=== PATIENT | male | born 1930 | race Caucasian/White ===

== ENCOUNTER 2020-02-04 14:19 | Inpatient (IN) | payer MEDICARE, OTHER ==
[~2020-02-04] VITALS: Ht 172.7 cm; Wt 94.3 kg
--- NOTE | 2020-02-04 14:45 | NUR ---
DR. SKAGGS SEEING PATIENT IN TRIAGE
--- NOTE | 2020-02-04 14:47 | NUR ---
DR. GILES MARTINEZ
[2020-02-04] MEDS ORDERED: SODIUM CHLORIDE 0.9% 1000ML 1,000 ML IV SCH (16:30)
[2020-02-04] MEDS ORDERED: ONDANSETRON HCL INJ 2MG/ML 2ML 2 MG/ML VIAL IV PRN (16:30)
[2020-02-04 16:34] LABS: BASOPHILS % 0.3 % (0.0-1.0); EOSINOPHILS % 0.3 % (0.0-6.0); HEMATOCRIT 40.7 % (38.2-49.6); HEMOGLOBIN 12.6 g/dL (14.0-18.0); LYMPHOCYTES # (AUTO) 0.8 (1.0-3.2); LYMPHOCYTES % 7.8 % (18.0-39.1); MEAN CORPUSCULAR HEMOGLOBIN 28.7 pg (28-32); MEAN CORPUSCULAR VOLUME 92.7 fL (81-99); MONOCYTES # (AUTO) 0.6 (0.2-0.8); MONOCYTES % 6.2 % (4.4-11.3); NEUTROPHILS # (AUTO) 8.7 (2.1-6.9); NEUTROPHILS % 84.9 % (38.7-80.0); PLATELET COUNT 144 x10e3/uL (140-360); RED BLOOD COUNT 4.39 x10e6/uL (4.3-5.7); RED CELL DISTRIBUTION WIDTH 13.6 % (11.7-14.4)
[2020-02-04 16:42] LABS: INR 0.9; PROTHROMBIN TIME 12.7 seconds (11.9-14.5)
[2020-02-04 16:44] LABS: CLARITY,URINE SL CLOUDY (CLEAR); COLOR,URINE YELLOW (YELLOW)
[2020-02-04 16:45] LABS: BILIRUBIN,URINE NEGATIVE (NEGATIVE); KETONES,URINE NEGATIVE (NEGATIVE); LEUKOCYTE ESTERASE ,URINE LARGE (NEGATIVE); NITRITE,URINE POSITIVE (NEGATIVE); PARTIAL THROMBOPLASTIN TIME 22.8 seconds (23.8-35.5); PROTEIN,URINE DIPSTICK TRACE (NEGATIVE); URINE UROBILINOGEN 0.2 mg/dL (0.2 - 1)
[2020-02-04 16:50] LABS: ALBUMIN/GLOBULIN RATIO 0.9 (0.8-2.0); ANION GAP 13.8 mmol/L (8-16); CALCIUM 11.6 mg/dL (8.4-10.2); CREATININE, SERUM 1.2 mg/dL (0.72-1.25); MAGNESIUM 1.9 MG/DL (1.3-2.1); POTASSIUM 4.8 mmol/L (3.5-5.1)
[2020-02-04 16:51] LABS: WBC,URINE (MAN) >50 /HPF (0-5)
[2020-02-04 16:52] LABS: BACTERIA,URINE MANY /HPF; RBC,URINE 21-50 /HPF (0-5)
[2020-02-04 16:53] LABS: EPITHELIAL CELLS,URINE FEW /LPF
[2020-02-04] MEDS: PIPERACILLIN/TAZO 2.25 GM 50 ML IV SCH ×2 (16:56→22:30)
--- NOTE | 2020-02-04 17:05 | Diagnostic Imaging Report ---
EXAMINATION: CHEST SINGLE (PORTABLE) INDICATION: Confusion, urinary tract infection COMPARISON: None FINDINGS: LINES/TUBES:None LUNGS:The lungs are well-inflated. No focal consolidation or pulmonary edema. Bibasilar linear opacities, likely subsegmental atelectasis. PLEURA:No pleural effusion or pneumothorax. MEDIASTINUM:The cardiomediastinal silhouette appears normal in size and shape. Atherosclerotic calcifications of the thoracic aorta. BONES/SOFT TISSUES:No acute osseous injury. Right shoulder arthroplasty hardware. ABDOMEN:No free air under the diaphragm. IMPRESSION: Bibasilar subsegmental atelectasis. No focal pneumonia or pulmonary edema. Signed by: Romulo Sy MD on 02/04/2020 5:02 PM
--- NOTE | 2020-02-04 17:10 | Diagnostic Imaging Report ---
History:Altered mental status Comparison studies: None Technique: Axial images were obtained from the skull base to the vertex. Coronal and sagittal images reconstructed from the axial data. Dose modulation, iterative reconstruction, and/or weight based adjustment of the mA/kV was utilized to reduce the radiation dose to as low as reasonably achievable. Intravenous contrast: None Findings: Scalp/skull: No abnormalities. Extra-axial spaces: No masses. No fluid collections. Brain sulci: Moderately prominent. Ventricles: Moderate compensatory dilatation. No hydrocephalus. Parenchyma: Confluent hypodensities in the supratentorial white matter are small vessel ischemic changes. No masses, hemorrhage, acute or chronic cortical vascular insults. Sellar/suprasellar region: No abnormalities. Craniocervical junction: Patent foramen magnum. No Chiari one malformation. Incidental findings: Atherosclerotic calcifications in the carotid siphons . Bilateral lens implants Impression: No acute abnormalities. Chronic findings: 1. Moderate generalized volume loss. 2. Moderate supratentorial white matter small vessel ischemic changes. Signed by: Dr. Isac Jin M.D. on 02/04/2020 5:06 PM
--- NOTE | 2020-02-04 17:17 | Emergency Department Note ---
History of Present Illnes History of Present Illness Chief Complaint: General Medicine Complaints History of Present Illness This is a 89 year old male SENT IN BY DR. MARTINEZ. C/O OF UTI, WEAKNESS, SOMNOLENCE YESTERDAY AND TODAY. STARTED AUGMENTING YESTERDAY. PATIENT HAD NOT COMPLETED HIS PCN VK WHEN HE GOT URINALYSIS REPORT BACK. ONLY 1 EPISODE OF BURNING WITH URINATION LAST WEEK. METZ CATHETER WITH YELLOW URINE, LOTS OF WHITE SEDIMENT IN TUBE. LAST CHANGED January. DENIES ANY FEVER OR ABDOMINAL OR FLANK PAIN. 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 Any updates have been documented here. Past Medical History Recent Fever: No Clinical Suspicion of Infectio: No New/Unexplained Change in Ment: No Past Medical History: Hypertension Other Medical History: PERIPHERAL NEUROPATHY RIGHT LEG BRACE, EXT. ROTATION OF RIGHT LEG Past Surgical History: Hip Replacement, Knee Replacement, Back Surgery Other Surgery: CATARACT TURP RIGHT SHOULDER Social History Smoking Cessation: Never Smoker Counseling Performed: No Alcohol Use: None Any Illegal Drug Use: No TB Exposure/Symptoms: No Physically hurt or threatened: No Family History Family history of heart diseas: Yes Other Last Tetanus: UTD Any Pre-Existing Lines (PICC,: No Is patient up to date on immun: Yes Last Flu: UTD Last Pneumovax: UTD Review of Systems Review of Systems Constitutional: Reports no symptoms EENTM: Reports no symptoms Cardiovascular: Reports no symptoms Respiratory: Reports no symptoms Gastrointestinal: Reports no symptoms Genitourinary: Reports as per HPI Musculoskeletal: Reports no symptoms Integumentary: Reports no symptoms Neurological: Reports no symptoms Psychological: Reports no symptoms Endocrine: Reports no symptoms Hematological/Lymphatic: Reports no symptoms Physical Exam Related Data Allergies: Coded Allergies: oxycodone (Verified Adverse Reaction, Intermediate, CONFUSION, 02/04/20) Triage Vital Signs Vital Signs Date Time Temp Pulse Resp B/P (MAP) Pulse Ox O2 Delivery O2 Flow Rate FiO2 02/04/20 14:25 98.3 75 18 101/64 97 Vital signs reviewed: Yes Physical Exam CONSTITUTIONAL Constitutional: Present well-developed, Present well-nourished HENT HENT: Present normocephalic, Present atraumatic, Present oropharynx clear/moist, Present nose normal HENT L/R: Present left ext ear normal, Present right ext ear normal EYES Eyes: Reports PERRL, Reports conjunctivae normal NECK Neck: Present ROM normal PULMONARY Pulmonary: Present effort normal, Present breath sounds normal CARDIOVASCULAR Cardiovascular: Present regular rhythm, Present heart sounds normal, Present capillary refill normal, Present normal rate GASTROINTESTINAL Abdominal: Present soft, Present nontender, Present bowel sounds normal GENITOURINARY Genitourinary: Present exam deferred SKIN Skin: Present warm, Present dry MUSCULOSKELETAL Musculoskeletal: Present ROM normal NEUROLOGICAL Neurological: Present alert, Present oriented x 3, Present no gross motor or sensory deficits PSYCHOLOGICAL Psychological: Present mood/affect normal, Present judgement normal Results Laboratory Result Diagram: 02/04/20 1615 02/04/20 1615 Laboratory Laboratory Tests Test 02/04/20 16:45 02/04/20 16:15 White Blood Count 10.28 x10e3/uL (4.8-10.8) Red Blood Count 4.39 x10e6/uL (4.3-5.7) Hemoglobin 12.6 g/dL (14.0-18.0) Hematocrit 40.7 % (38.2-49.6) Mean Corpuscular Volume 92.7 fL (81-99) Mean Corpuscular Hemoglobin 28.7 pg (28-32) Mean Corpuscular Hemoglobin Concent 31.0 g/dL (31-35) Red Cell Distribution Width 13.6 % (11.7-14.4) Platelet Count 144 x10e3/uL (140-360) Neutrophils (%) (Auto) 84.9 % (38.7-80.0) Lymphocytes (%) (Auto) 7.8 % (18.0-39.1) Monocytes (%) (Auto) 6.2 % (4.4-11.3) Eosinophils (%) (Auto) 0.3 % (0.0-6.0) Basophils (%) (Auto) 0.3 % (0.0-1.0) Neutrophils # (Auto) 8.7 (2.1-6.9) Lymphocytes # (Auto) 0.8 (1.0-3.2) Monocytes # (Auto) 0.6 (0.2-0.8) Eosinophils # (Auto) 0.0 (0.0-0.4) Basophils # (Auto) 0.0 (0.0-0.1) Absolute Immature Granulocyte (auto 0.05 x10e3/uL (0-0.1) Prothrombin Time 12.7 seconds (11.9-14.5) Prothromb Time International Ratio 0.90 Activated Partial Thromboplast Time 22.8 seconds (23.8-35.5) Urine Color Yellow (YELLOW) Urine Clarity Sl cloudy (CLEAR) Urine pH 7 (5 - 7) Urine Specific [place] 1.025 (1.010-1.025) Urine Protein Trace (NEGATIVE) Urine Glucose (UA) Negative (NEGATIVE) Urine Ketones Negative (NEGATIVE) Urine Blood Moderate (NEGATIVE) Urine Nitrite Positive (NEGATIVE) Urine Bilirubin Negative (NEGATIVE) Urine Urobilinogen 0.2 mg/dL (0.2 - 1) Urine Leukocyte Esterase Large (NEGATIVE) Urine RBC 21-50 /HPF (0-5) Urine WBC >50 /HPF (0-5) Urine Epithelial Cells Few /LPF (NONE) Urine Bacteria Many /HPF (NONE) Sodium Level 138 mmol/L (136-145) Potassium Level 4.8 mmol/L (3.5-5.1) Chloride Level 102 mmol/L (98-107) Carbon Dioxide Level 27 mmol/L (22-29) Anion Gap 13.8 mmol/L (8-16) Blood Urea Nitrogen 23 mg/dL (7-26) Creatinine 1.20 mg/dL (0.72-1.25) Estimat Glomerular Filtration Rate 57 ML/MIN (60-) BUN/Creatinine Ratio 19 (6-25) Glucose Level 129 mg/dL (74-118) Calcium Level 11.6 mg/dL (8.4-10.2) Magnesium Level 1.9 MG/DL (1.3-2.1) Total Bilirubin 0.5 mg/dL (0.2-1.2) Aspartate Amino Transf (AST/SGOT) 22 IU/L (5-34) Alanine Aminotransferase (ALT/SGPT) 16 IU/L (0-55) Alkaline Phosphatase 48 IU/L (40-150) Creatine Kinase 74 IU/L (30-200) Creatine Kinase MB 2.00 ng/mL (0-5.0) Troponin I 0.008 ng/mL (0-0.300) Total Protein 6.3 g/dL (6.5-8.1) Albumin 3.0 g/dL (3.5-5.0) Globulin 3.3 g/dL (2.3-3.5) Albumin/Globulin Ratio 0.9 (0.8-2.0) Laboratory Tests Test 02/04/20 16:45 02/04/20 16:15 White Blood Count 10.28 x10e3/uL (4.8-10.8) Red Blood Count 4.39 x10e6/uL (4.3-5.7) Hemoglobin 12.6 g/dL (14.0-18.0) Hematocrit 40.7 % (38.2-49.6) Mean Corpuscular Volume 92.7 fL (81-99) Mean Corpuscular Hemoglobin 28.7 pg (28-32) Mean Corpuscular Hemoglobin Concent 31.0 g/dL (31-35) Red Cell Distribution Width 13.6 % (11.7-14.4) Platelet Count 144 x10e3/uL (140-360) Neutrophils (%) (Auto) 84.9 % (38.7-80.0) Lymphocytes (%) (Auto) 7.8 % (18.0-39.1) Monocytes (%) (Auto) 6.2 % (4.4-11.3) Eosinophils (%) (Auto) 0.3 % (0.0-6.0) Basophils (%) (Auto) 0.3 % (0.0-1.0) Neutrophils # (Auto) 8.7 (2.1-6.9) Lymphocytes # (Auto) 0.8 (1.0-3.2) Monocytes # (Auto) 0.6 (0.2-0.8) Eosinophils # (Auto) 0.0 (0.0-0.4) Basophils # (Auto) 0.0 (0.0-0.1) Absolute Immature Granulocyte (auto 0.05 x10e3/uL (0-0.1) Prothrombin Time 12.7 seconds (11.9-14.5) Prothromb Time International Ratio 0.90 Activated Partial Thromboplast Time 22.8 seconds (23.8-35.5) Urine Color Yellow (YELLOW) Urine Clarity Sl cloudy (CLEAR) Urine pH 7 (5 - 7) Urine Specific [place] 1.025 (1.010-1.025) Urine Protein Trace (NEGATIVE) Urine Glucose (UA) Negative (NEGATIVE) Urine Ketones Negative (NEGATIVE) Urine Blood Moderate (NEGATIVE) Urine Nitrite Positive (NEGATIVE) Urine Bilirubin Negative (NEGATIVE) Urine Urobilinogen 0.2 mg/dL (0.2 - 1) Urine Leukocyte Esterase Large (NEGATIVE) Urine RBC 21-50 /HPF (0-5) Urine WBC >50 /HPF (0-5) Urine Epithelial Cells Few /LPF (NONE) Urine Bacteria Many /HPF (NONE) Sodium Level 138 mmol/L (136-145) Potassium Level 4.8 mmol/L (3.5-5.1) Chloride Level 102 mmol/L (98-107) Carbon Dioxide Level 27 mmol/L (22-29) Anion Gap 13.8 mmol/L (8-16) Blood Urea Nitrogen 23 mg/dL (7-26) Creatinine 1.20 mg/dL (0.72-1.25) Estimat Glomerular Filtration Rate 57 ML/MIN (60-) BUN/Creatinine Ratio 19 (6-25) Glucose Level 129 mg/dL (74-118) Calcium Level 11.6 mg/dL (8.4-10.2) Magnesium Level 1.9 MG/DL (1.3-2.1) Total Bilirubin 0.5 mg/dL (0.2-1.2) Aspartate Amino Transf (AST/SGOT) 22 IU/L (5-34) Alanine Aminotransferase (ALT/SGPT) 16 IU/L (0-55) Alkaline Phosphatase 48 IU/L (40-150) Creatine Kinase 74 IU/L (30-200) Creatine Kinase MB 2.00 ng/mL (0-5.0) Troponin I 0.008 ng/mL (0-0.300) Total Protein 6.3 g/dL (6.5-8.1) Albumin 3.0 g/dL (3.5-5.0) Globulin 3.3 g/dL (2.3-3.5) Albumin/Globulin Ratio 0.9 (0.8-2.0) Lab results reviewed: Yes Imaging Imaging results reviewed: Yes Impressions CT BRAIN Impression: No acute abnormalities. Chronic findings: 1. Moderate generalized volume loss. 2. Moderate supratentorial white matter small vessel ischemic changes. Signed by: Dr. Isac Jin M.D. on 02/04/2020 5:06 PM Procedure: [id number] DX/CHEST SINGLE (PORTABLE) Exam Date: 02/04/20 Exam Time: 1630 REPORT STATUS: Signed EXAMINATION: CHEST SINGLE (PORTABLE) INDICATION: Confusion, urinary tract infection COMPARISON: None FINDINGS: LINES/TUBES:None LUNGS:The lungs are well-inflated. No focal consolidation or pulmonary edema. Bibasilar linear opacities, likely subsegmental atelectasis. PLEURA:No pleural effusion or pneumothorax. MEDIASTINUM:The cardiomediastinal silhouette appears normal in size and shape. Atherosclerotic calcifications of the thoracic aorta. BONES/SOFT TISSUES:No acute osseous injury. Right shoulder arthroplasty hardware. ABDOMEN:No free air under the diaphragm. IMPRESSION: Bibasilar subsegmental atelectasis. No focal pneumonia or pulmonary edema. Signed by: Romulo Sy MD on 02/04/2020 5:02 PM Assessment & Plan Medical Decision Making MDM CONFUSION, RECENT ESBL UTI WITH CHRONIC INDWELLING METZ - CHECK CBC, CHEM'S, UA/CX, BLOOD CX'S, CXR, CT BRAIN - EVAL UTI, RENAL INSUFF, LEUKOCYTOSIS, SEPSIS, CEREBRAL BLEED Reassessment Reassessment D/W DR JUAN MORRIS ADMITTED ON ZOSYN 2.25 Q6HR, SPOKE WITH DR HOWE FOR ADMISSION Assessment & Plan Final Impression: (1) UTI (urinary tract infection) (2) Altered mental status Depart Disposition: ADMITTED Last Vital Signs Date Time Temp Pulse Resp B/P (MAP) Pulse Ox O2 Delivery O2 Flow Rate FiO2 02/04/20 17:07 71 18 97 02/04/20 16:30 98.3 110/75 Medications in the ED Piperacillin Sod/ Tazobactam Sod 50 ml @ 50 mls/hr 0400,1000,1600,2200 IV Last administered on 02/04/20at 16:56; Admin Dose 50 MLS/HR; Start 02/04/20 at 16:00; Stop 02/11/20 at 15:59 Ondansetron HCl 4 mg Q4H PRN IV NAUSEA AND VOMITING; Start 02/04/20 at 16:30; Stop 03/05/20 at 16:29 Sodium Chloride 1,000 ml @ 75 mls/hr [id number] IV Last administered on 02/04/20at 16:56; Admin Dose 75 MLS/HR; Start 02/04/20 at 16:30; Stop 02/05/20 at 05:49 GENIE SKAGGS MD Feb 04, 2020 17:17
--- NOTE | 2020-02-04 18:05 | NUR ---
Received patient from ER. Respiration even and unlabored without SOB. Patient orientated to room and call light. Respiration even and unlabored without SOB. Call light in reach.
[2020-02-04 18:17] VITALS: BP 144/67
[2020-02-04 20:45] VITALS: BP 129/68
[2020-02-04 20:51] VITALS: BP 129/68
[2020-02-04] MEDS ORDERED: ACETAMINOPHEN 325 MG TAB PO PRN (21:00)
--- NOTE | 2020-02-04 22:30 | NUR ---
PATIENT IS NOT SURE OF SOME MEDICATIONS HE IS TAKING. HE SAID HIS WILL BE HERE TOMORROW TO BRING THE LIST OF HIS MEDICATIONS.
[2020-02-05] VITALS (9 sets, daily range): BP systolic 107–138; BP diastolic 53–87
[2020-02-05 00:42] LABS: CREATINE KINASE 39 IU/L (30-200)
[2020-02-05] MEDS: PIPERACILLIN/TAZO 2.25 GM 50 ML IV SCH ×4 (04:31→22:15)
[2020-02-05 06:06] LABS: BASOPHILS % 0.3 % (0.0-1.0); EOSINOPHILS # (AUTO) 0.2 (0.0-0.4); EOSINOPHILS % 2.4 % (0.0-6.0); HEMATOCRIT 34.3 % (38.2-49.6); LYMPHOCYTES # (AUTO) 1.3 (1.0-3.2); LYMPHOCYTES % 16.9 % (18.0-39.1); MEAN CORPUSCULAR HEMOGLOBIN 30.2 pg (28-32); MEAN CORPUSCULAR HGB CONC 32.1 g/dL (31-35); MEAN CORPUSCULAR VOLUME 94.2 fL (81-99); MONOCYTES # (AUTO) 0.8 (0.2-0.8); MONOCYTES % 9.8 % (4.4-11.3); NEUTROPHILS # (AUTO) 5.4 (2.1-6.9); NEUTROPHILS % 70.2 % (38.7-80.0); PLATELET COUNT 117 x10e3/uL (140-360); RED BLOOD COUNT 3.64 x10e6/uL (4.3-5.7); RED CELL DISTRIBUTION WIDTH 13.7 % (11.7-14.4)
[2020-02-05 06:19] LABS: ALANINE AMINOTRANSFERASE 11 IU/L (0-55); ALBUMIN 2.6 g/dL (3.5-5.0); ALKALINE PHOSPHATASE 44 IU/L (40-150); BLOOD UREA NITROGEN 17 mg/dL (7-26); BUN/CREATININE RATIO 16 (6-25); CALCIUM 10.5 mg/dL (8.4-10.2); CARBON DIOXIDE 29 mmol/L (22-29); CHLORIDE 106 mmol/L (98-107); CREATININE, SERUM 1.04 mg/dL (0.72-1.25); EST GLOMERULAR FILTRATION RATE > 60 ML/MIN (60-); GLUCOSE 94 mg/dL (74-118); SODIUM 139 mmol/L (136-145)
[2020-02-05] MEDS ORDERED: PROSCAR5 MG PO (06:20)
[2020-02-05] MEDS ORDERED: LASIX20 MG PO (06:20)
[2020-02-05] MEDS ORDERED: CALCIUM CARBON500 MG PO (06:20)
[2020-02-05 06:44] LABS: CREATINE KINASE 15 IU/L (30-200)
[2020-02-05] MEDS ORDERED: HYDROCODONE/APAP 5MG-325MG TAB PO PRN (09:15)
--- NOTE | 2020-02-05 10:06 | History and Physical ---
The patient admitted through the emergency room. PRIMARY CARE PHYSICIAN: Dr. Erik Rogel. LPN PRIVATE DUTY: Dr. Dominick Delaney. CHIEF COMPLAINT: Altered mental status. Garza catheter, complicated urinary tract infection with ESBL. HISTORY OF PRESENT ILLNESS: The patient is an 89-year-old male, sent in by Dr. Delaney, his urologist to the emergency room. Apparently, the patient was having increasing weakness and urinary tract infection associated with some confusion, delirium. The patient also has some lethargy as well. The patient is started on Augmentin, did not improve, a matter of fact it caused some abdominal discomfort. The patient came through the emergency room and is admitted. Zosyn is initiated. The patient is otherwise stable. He had a Garza catheter in place. PAST MEDICAL HISTORY: Peripheral neuropathy, cataract, history of osteoarthritis, urinary retention. PAST SURGICAL HISTORY: Cataract surgery. He had a TURP years ago, right shoulder surgery, right knee replacement, hip replacement, lower back surgery. SOCIAL HISTORY: The patient does not smoke or use alcohol. No regular drug. ALLERGIES: OXYCODONE. HOME MEDICATIONS: List will be available for review. REVIEW OF SYSTEMS: The patient has some confusion, but he is able to answer command, following instruction. PHYSICAL EXAMINATION: HEENT: Normocephalic and atraumatic. Anicteric. NECK: Supple grossly. PULMONARY: Diminished breath sounds without any wheezing or rales. CARDIOVASCULAR: S1, S2. Regular rate and rhythm. ABDOMEN: Soft. There is multiple surgical healing scar. EXTREMITIES: No cyanosis or edema. Garza catheter in place. NEUROLOGIC: The patient moving all extremities. There is no focal deficit. His confusion is mild. Follow commands. LABORATORY DATA: WBC is 10, hemoglobin 13, hematocrit 41, platelets 144. Chemistry; sodium 138, potassium 4.8, chloride 102, bicarb 27, BUN 23, creatinine 1.3, and glucose is 129. Calcium is 11.6. Serologies, coronavirus-19 is still pending. Urinalysis, trace protein, large leukocyte esterase, large wbc, many bacteria. Micro bacteria. Urine cultures still pending. IMAGING TESTS: Chest x-ray and CT scan of the brain, there is no acute finding. He does have some bibasilar atelectasis of the lungs. IMPRESSION: 1. Complicated urinary tract infection associated with prostatitis and indwelling Garza catheter. 2. Confusion secondary to above. 3. Multiple chronic baseline problems. 4. Hypercalcemia, most likely dehydration. PLAN: CT abdomen and pelvis because of the hypercalcemia. He does have history of enlarged prostate and urinary retention. We will check for malignancy. CT scan will be with contrast. Antibiotics Zosyn. Pepcid. Home medication resumed. Repeat the lab work. Check urine culture and blood culture. Consultation with Dr. Dominick Delaney, IV fluids. MD ZHANG Iverson/SHELLYL /[id number]
[2020-02-05] MEDS: SODIUM CHLORIDE 0.9% 1000ML 1,000 ML IV SCH ×2 (10:13→21:07)
[2020-02-05] MEDS ORDERED: SODIUM CHLORIDE 0.9% 50ML 50 ML ONE (11:04)
[2020-02-05] MEDS ORDERED: IOPAMIDOL 370 MG/ML 200 ML INFUS..BTL INJ ONE (11:04)
[2020-02-05] MEDS: FAMOTIDINE 20 MG/2 ML VIAL IV SCH ×2 (12:05→16:42)
--- NOTE | 2020-02-05 13:17 | Diagnostic Imaging Report ---
CT of the abdomen and pelvis, with contrast. History: Complicated UTI. Comparison: None available. Technique: Multidetector CT scanning of the abdomen and pelvis was performed from the level of the lung bases to the inferior pubic rami after intravenous administration of contrast. Coronal and sagittal multiplanar reformations were obtained. RADIATION DOSE: Total DLP: 583.06 mGy*cm Dose modulation, iterative reconstruction, and/or weight based adjustment of the mA/kV was utilized to reduce the radiation dose to as low as reasonably achievable. FINDINGS: Bandlike opacities are identified within the left greater than right lung base suggestive of atelectasis/scarring. The imaged portion of the heart demonstrates no significant abnormalities. The liver is normal in size and attenuation. The gallbladder is surgically absent. There is mild prominence of the central intrahepatic bile ducts and common bile duct measuring up to 10 mm which may be secondary to reservoir phenomenon postcholecystectomy. No radiopaque biliary stone is identified. There are postsurgical changes of the GE junction. There is a moderate size hiatal hernia present. The stomach is otherwise unremarkable. The spleen and right adrenal gland are unremarkable. There is a nonspecific 1.3 cm left adrenal nodule which is not definitively characterized on this single phase examination. There are involutional changes of the pancreas which is otherwise unremarkable. The kidneys are normal in size and location and enhance symmetrically. There is a 6.1 x 6.4 cm cyst identified within the left kidney. There is a 3 mm nonobstructing stone identified within the interpolar region of the right kidney. There is a 4 mm nonobstructive stone versus parenchymal calcification identified within the inferior pole of the left kidney. Additionally, there is a 7 mm stone identified within the right renal pelvis resulting in mild dilatation of the renal pelvis without evidence for true intrarenal hydronephrosis. No left-sided hydronephrosis is present. The left ureter is normal course and caliber. A Garza catheter is identified with retention balloon inflated within the prosthetic urethra. There is moderate distention of the urinary bladder with small amount of air noted within the nondependent portion, likely related to catheterization. The prostate appears prominent. The abdominal aorta is tortuous but normal in caliber with atherosclerotic calcifications within its course and branch vessels. An IVC filter is identified in place. Please note evaluation the bowel is limited without the use of enteric contrast material. The visualized loops of small and large bowel demonstrate no evidence of obstruction or inflammation. Moderate stool burden noted within the sigmoid colon and rectum, recommend correlation for constipation. There is no ascites or intraperitoneal free air. No abnormally enlarged lymph nodes are identified within the abdomen or pelvis. 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 There are also postsurgical changes from right hip arthroplasty with heterotopic calcifications noted adjacent to the right greater trochanter. Vertebral augmentation changes are noted at T10 and T11. There is a severe compression deformity of the T12 vertebral body of unknown chronicity. Multilevel degenerative changes are noted within the thoracolumbar spine. No osseous destructive process is appreciated. IMPRESSION: 1. Malpositioned Garza catheter with retention balloon inflated at the level of the prosthetic urethra. Recommend repositioning/advancing by several several centimeters. 2. 7 mm stone noted within the right renal pelvis resulting in mild dilatation of the right renal pelvis. No intrarenal hydronephrosis is present. Additional subcentimeter bilateral nonobstructing stones identified as detailed above. 3. Left renal cyst. 4. Mild dilatation of the central bile ducts and common bile duct which is likely related to reservoir phenomenon status post cholecystectomy. 5. Moderate sized hiatal hernia. 6. T12 compression deformity of unknown chronicity. Signed by: Dr. Earnest Cooper MD on 02/05/2020 1:13 PM
[2020-02-05 13:25] LABS: CREATINE KINASE MB 1.9 ng/mL (0-5.0)
--- NOTE | 2020-02-05 16:33 | NUR ---
patient up in bed, Alert with no distress, denies any pain this time, at bed side
[2020-02-06] VITALS (10 sets, daily range): BP systolic 123–136; BP diastolic 53–85
[2020-02-06] MEDS: PIPERACILLIN/TAZO 2.25 GM 50 ML IV SCH ×4 (04:47→21:21)
[2020-02-06] MEDS: SODIUM CHLORIDE 0.9% 1000ML 1,000 ML IV SCH ×2 (05:37→21:21)
[2020-02-06 05:38] LABS: BASOPHILS % 0.5 % (0.0-1.0); EOSINOPHILS # (AUTO) 0.2 (0.0-0.4); EOSINOPHILS % 2.3 % (0.0-6.0); HEMATOCRIT 35.9 % (38.2-49.6); HEMOGLOBIN 11.2 g/dL (14.0-18.0); LYMPHOCYTES # (AUTO) 1.5 (1.0-3.2); LYMPHOCYTES % 18.8 % (18.0-39.1); MEAN CORPUSCULAR HEMOGLOBIN 29.2 pg (28-32); MEAN CORPUSCULAR HGB CONC 31.2 g/dL (31-35); MEAN CORPUSCULAR VOLUME 93.7 fL (81-99); MONOCYTES # (AUTO) 0.9 (0.2-0.8); MONOCYTES % 10.7 % (4.4-11.3); NEUTROPHILS # (AUTO) 5.5 (2.1-6.9); NEUTROPHILS % 67.1 % (38.7-80.0); PLATELET COUNT 127 x10e3/uL (140-360); RED BLOOD COUNT 3.83 x10e6/uL (4.3-5.7); RED CELL DISTRIBUTION WIDTH 13.5 % (11.7-14.4)
[2020-02-06 05:59] LABS: ANION GAP 6.9 mmol/L (8-16); BLOOD UREA NITROGEN 14 mg/dL (7-26); BUN/CREATININE RATIO 14 (6-25); CALCIUM 9.7 mg/dL (8.4-10.2); CARBON DIOXIDE 27 mmol/L (22-29); CHLORIDE 109 mmol/L (98-107); CREATININE, SERUM 0.99 mg/dL (0.72-1.25); EST GLOMERULAR FILTRATION RATE > 60 ML/MIN (60-); GLUCOSE 84 mg/dL (74-118); POTASSIUM 3.9 mmol/L (3.5-5.1); SODIUM 139 mmol/L (136-145)
[2020-02-06] MEDS: FAMOTIDINE 20 MG/2 ML VIAL IV SCH ×2 (08:43→16:44)
--- NOTE | 2020-02-06 12:04 | Diagnostic Imaging Report ---
EXAMINATION: HIPS BILAT 3-4VWS (+/- PELVIS), LUMBAR 3 VIEW INDICATION: Fall COMPARISON: None FINDINGS: AP and lateral views of the lumbar spine demonstrate postoperative findings of L1-S1 fusion. Age-indeterminate T12 compression fracture. Status post T10 and T11 vertebral augmentation. Severe multilevel degenerative changes of the visualized spine. IVC filter in place. Atherosclerotic arterial calcic dictations. AP view of the pelvis and AP and frog-leg views of both hips demonstrate postoperative findings of right total hip replacement. Alignment is anatomic. No acute osseous injury. Severe left hip joint degenerative changes with on bone contact and osteophyte formation. Phleboliths in the pelvis. IMPRESSION: Age indeterminate T12 compression fracture. Findings of prior L1-S1 fusion and T10 and T11 vertebral augmentation. Anatomic alignment status post right total hip replacement. Severe [place] left hip degenerative changes. Signed by: Romulo Sy MD on 02/06/2020 12:01 PM
--- NOTE | 2020-02-06 12:04 | Diagnostic Imaging Report ---
EXAMINATION: HIPS BILAT 3-4VWS (+/- PELVIS), LUMBAR 3 VIEW INDICATION: Fall COMPARISON: None FINDINGS: AP and lateral views of the lumbar spine demonstrate postoperative findings of L1-S1 fusion. Age-indeterminate T12 compression fracture. Status post T10 and T11 vertebral augmentation. Severe multilevel degenerative changes of the visualized spine. IVC filter in place. Atherosclerotic arterial calcic dictations. AP view of the pelvis and AP and frog-leg views of both hips demonstrate postoperative findings of right total hip replacement. Alignment is anatomic. No acute osseous injury. Severe left hip joint degenerative changes with on bone contact and osteophyte formation. Phleboliths in the pelvis. IMPRESSION: Age indeterminate T12 compression fracture. Findings of prior L1-S1 fusion and T10 and T11 vertebral augmentation. Anatomic alignment status post right total hip replacement. Severe koi left hip degenerative changes. Signed by: Romulo Sy MD on 02/06/2020 12:01 PM
--- NOTE | 2020-02-06 13:12 | NUR ---
WOUND CARE CONSULT FOR 89 YO MALE HX OF AMS,UTI CIERA 16 ON CONSERVATIVE PUP STATUS AND INTERVENTIONS AND ALTERNATING PRESSURE MATTRESS LABS: WBC-8.20 HGB_11.2 [id number] SKIN ASSESSMENT COMPLETE PATIENT PRESENTS WITH SACRAL STAGE 1 ULCERATION DUSKY RED 2CM X2CM RIGHT GREAT TO STAGE 2 ULCERATION 1CM X2CM X0.1CM AND LEFT GREAT TOE STAGE 2 ULCERATION 0.5CM X0.5CM X0.1CM REPORTED BY PATIENT TO BE CAUSED BY TIGHT BED SHEETS HAVE FAILED TO HEAL X 1 YR RECOMMENDATIONS: NURSING TO CONTINUE TO MAINTAIN ___ PUP STATUS AND INTERVENTIONS AND MATTRESS NURSING TO CONTINUE TO ASSIST PATIENT OUT OF BED FOR MEALS AND MUCH TOLERATED NURSING TO CONTINUE TO ASSIST PATIENT NEEDED WITH MEALS AND NUTRITIONAL SUPPLEMENTS TO ENSURE PROPER REQUIREMENTS FOR HEALING NURSING TO CONTINUE TO OFFLOAD FEET AND HEELS NEEDED WITH PILLOW SUSPENSION WHEN IN BED RECOMMEND CIRCULATION STUDY TO BILATERAL LOWER EXTREMITY R/T NONHEALING BILATERAL GREAT TOE ULCERATIONS NURSING TO KEEP SACRAL AREA CLEAN AND DRY DAILY APPLY VENELEX OINTMENT AND ALLEVYN FOAM DRESSING NURSING TO CLEAN BILATERAL GREAT TOE ULCERATIONS WITH NORMAL SALINE DAILY AND APPLY VENELEX OINTMENT AND LEAVE OPEN TO AIR
[2020-02-06] MEDS ORDERED: LOSARTAN POTASS25 MG PO (14:45)
[2020-02-06] MEDS ORDERED: GABAPENTIN300 MG PO (14:45)
[2020-02-06] MEDS ORDERED: MYRBETRIQ50 MG PO (14:45)
[2020-02-06] MEDS ORDERED: FLOMAX0.4 MG PO (14:45)
[2020-02-06] MEDS ORDERED: PREDNISONE10 MG PO (14:45)
[2020-02-06] MEDS ORDERED: FUROSEMIDE40 MG PO (14:45)
[2020-02-06] MEDS ORDERED: PROSCAR5 MG PO (14:45)
[2020-02-06] MEDS ORDERED: AMLODIPINE BESYL5 MG PO (14:45)
--- NOTE | 2020-02-06 18:22 | NUR ---
patient resting in bed, not in any distress, call light in reach, bed alarm on, was there earlier, as per Dr Delaney keep him NPO after midnight
[2020-02-07] VITALS (8 sets, daily range): BP systolic 132–167; BP diastolic 66–84
[2020-02-07] MEDS: SODIUM CHLORIDE 0.9% 1000ML 1,000 ML IV SCH ×3 (01:15→21:43)
[2020-02-07] MEDS: PIPERACILLIN/TAZO 2.25 GM 50 ML IV SCH ×4 (04:50→21:43)
[2020-02-07 05:49] LABS: BASOPHILS % 0.5 % (0.0-1.0); EOSINOPHILS # (AUTO) 0.2 (0.0-0.4); EOSINOPHILS % 3.6 % (0.0-6.0); HEMATOCRIT 37.1 % (38.2-49.6); HEMOGLOBIN 11.8 g/dL (14.0-18.0); LYMPHOCYTES # (AUTO) 1.7 (1.0-3.2); LYMPHOCYTES % 24.9 % (18.0-39.1); MEAN CORPUSCULAR HEMOGLOBIN 29.6 pg (28-32); MEAN CORPUSCULAR HGB CONC 31.8 g/dL (31-35); MEAN CORPUSCULAR VOLUME 93.2 fL (81-99); MONOCYTES # (AUTO) 0.7 (0.2-0.8); MONOCYTES % 11.1 % (4.4-11.3); NEUTROPHILS % 59.3 % (38.7-80.0); PLATELET COUNT 125 x10e3/uL (140-360); RED BLOOD COUNT 3.98 x10e6/uL (4.3-5.7); RED CELL DISTRIBUTION WIDTH 13.8 % (11.7-14.4)
[2020-02-07 06:10] LABS: ANION GAP 8.9 mmol/L (8-16); BLOOD UREA NITROGEN 12 mg/dL (7-26); BUN/CREATININE RATIO 13 (6-25); CALCIUM 9.6 mg/dL (8.4-10.2); CARBON DIOXIDE 24 mmol/L (22-29); CHLORIDE 111 mmol/L (98-107); CREATININE, SERUM 0.93 mg/dL (0.72-1.25); EST GLOMERULAR FILTRATION RATE > 60 ML/MIN (60-); GLUCOSE 95 mg/dL (74-118); POTASSIUM 3.9 mmol/L (3.5-5.1); SODIUM 140 mmol/L (136-145)
--- NOTE | 2020-02-07 07:00 | NUR ---
RCD PT AT BED PT IS ALERT AND ORIENTED PT RESTING ON BED NO SIGNS OF ANY DISTRESS NOTED IV PATENT BED LOW AND LOCKED CALL LIGHT IN REACH
[2020-02-07] MEDS: BALSAM PERU/CASTOR OIL 60 GM OINT...G. TP SCH (09:00)
[2020-02-07] MEDS: FAMOTIDINE 20 MG/2 ML VIAL IV SCH ×2 (09:00→16:14)
--- NOTE | 2020-02-07 12:48 | NUR ---
DR MARTINEZ SAID HE IS NOT DOING ANY PROCEDURE ON TODAY ,GIVE THE LUNCH
--- NOTE | 2020-02-07 14:30 | NUR ---
AC TO TELEY TECH PTS HR AND RHYTHM CHANGED ,CHECKED THE PT VITALS AND STARTED O2 BECAUSE O2 STATUS 90%
--- NOTE | 2020-02-07 14:40 | NUR ---
AGAIN CAPRICE MCGILL CALLED AND SHE SAID ORDER EKG ,THEY CAME AND TOOK THE EKG
--- NOTE | 2020-02-07 14:50 | NUR ---
NOTIFIED THE EKG REPORT TO DR HOWE FIRST DEGREE BLOCK WITH BB AND SECOND EKG SHOWS A FIB HE SAID PUT THE EKG ON THE CHART ,NO NEW ORDERS
--- NOTE | 2020-02-07 15:00 | NUR ---
NOTIFIED THE CONDITION TO THE SENIOR PROJECT ARCHITECT
--- NOTE | 2020-02-07 17:03 | NUR ---
Received call from pt's Tona Cisneros. States to send referral for inpatient rehab to [facility] rehab. Copy of choice letter placed in front of chart. Referral faxed to [facility] at [phone].
--- NOTE | 2020-02-07 18:46 | NUR ---
PT RESTING ON BED BED SIDE REPORT GIVEN TO ONCOMING NURSE
[2020-02-08] VITALS (9 sets, daily range): BP systolic 122–158; BP diastolic 72–89
[2020-02-08] MEDS: PIPERACILLIN/TAZO 2.25 GM 50 ML IV SCH ×2 (04:17→10:00)
[2020-02-08 06:46] LABS: BASOPHILS % 0.5 % (0.0-1.0); EOSINOPHILS % 1.4 % (0.0-6.0); HEMATOCRIT 37.8 % (38.2-49.6); HEMOGLOBIN 11.6 g/dL (14.0-18.0); LYMPHOCYTES # (AUTO) 0.9 (1.0-3.2); LYMPHOCYTES % 41.6 % (18.0-39.1); MEAN CORPUSCULAR HGB CONC 30.7 g/dL (31-35); MEAN CORPUSCULAR VOLUME 91.3 fL (81-99); MONOCYTES # (AUTO) 0.1 (0.2-0.8); MONOCYTES % 4.1 % (4.4-11.3); NEUTROPHILS # (AUTO) 1.1 (2.1-6.9); PLATELET COUNT 112 x10e3/uL (140-360); RED BLOOD COUNT 4.14 x10e6/uL (4.3-5.7); RED CELL DISTRIBUTION WIDTH 13.7 % (11.7-14.4)
[2020-02-08 07:03] LABS: MAGNESIUM 1.7 MG/DL (1.3-2.1); PHOSPHORUS 1.8 MG/DL (2.3-4.7)
[2020-02-08 07:10] LABS: ANION GAP 7.8 mmol/L (8-16); BLOOD UREA NITROGEN 11 mg/dL (7-26); BUN/CREATININE RATIO 13 (6-25); CALCIUM 9.6 mg/dL (8.4-10.2); CARBON DIOXIDE 23 mmol/L (22-29); CHLORIDE 113 mmol/L (98-107); CREATININE, SERUM 0.88 mg/dL (0.72-1.25); EST GLOMERULAR FILTRATION RATE > 60 ML/MIN (60-); GLUCOSE 99 mg/dL (74-118); POTASSIUM 3.8 mmol/L (3.5-5.1); SODIUM 140 mmol/L (136-145)
[2020-02-08] MEDS: SODIUM CHLORIDE 0.9% 1000ML 1,000 ML IV SCH ×2 (07:15→16:19)
[2020-02-08 07:24] LABS: THYROID STIMULATING HORMONE 2.416 uIU/mL (0.350-4.940)
[2020-02-08] MEDS: FAMOTIDINE 20 MG/2 ML VIAL IV SCH ×2 (07:58→16:19)
[2020-02-08] MEDS: BALSAM PERU/CASTOR OIL 60 GM OINT...G. TP SCH (07:58)
--- NOTE | 2020-02-08 08:45 | NUR ---
NOTIFIED MADHURI ALVARADO, LIAISON WITH [facility] CELL [phone] THAT HIS CORONAVIRUS TEST NOT DETECTED
--- NOTE | 2020-02-08 09:58 | NUR ---
MADHURI INFORMED THAT PT HAS BEEN APPROVED FOR ADMIT TODAY. NOTIFIED DR. HOWE, WHO IS NOW ROUNDING. HE WILL ASSESS PT AND DETERMINE IF CAN TRANSFER TODAY. NOTIFIED MADHURI.
[2020-02-08] MEDS ORDERED: MAGNESIUM SULFATE 2GM/50ML IV ONE (11:15)
--- NOTE | 2020-02-08 11:59 | NUR ---
PT NOT TRANSFERRED TO [facility] TODAY. DR. HOWE TREATING MG AND REPEATING LABS IN THE MORNING. NOTIFIED MADHURI Serna/ [facility]
[2020-02-08] MEDS ORDERED: POTASSIUM PHOSPHATE 20 MM in SODIUM CHLORIDE 0.9% 250ML 250 ML IV ONE (12:00)
[2020-02-08] MEDS ORDERED: MAGNESIUM SULFATE 2GM/50ML 50 ML IV ONE (12:00)
[2020-02-08] MEDS: CEFEPIME 1GM/NS 0.9% 50 ML 50 ML IV SCH ×2 (12:00→22:59)
--- NOTE | 2020-02-08 12:58 | NUR ---
ELICEO, PT DAUGHTER, CALLED TO INQUIRE IF PT WAS GOING TO [facility] OR NOT. EXPLAINED HE WILL NOT GO TODAY, AND THAT HE IS HAVING LAB TESTS TOMORROW. NOTIFIED HER CARDIOLOGY ALSO WAS CONSULTED. SHE STATED HE IS SUPPOSE TO HAVE UROLOGICAL SURGERY, BUT IT WAS POSTPONED DUE TO HIS UTI.
--- NOTE | 2020-02-08 13:43 | NUR ---
Juanita, pt daughter called, requesting Return Agent please go see her father. I explained they are not here on weekend, but that I would leave Return Agent a message. She is also requesting the Eucharist if possible, as pt is Christianity. Voice mail left for Chaplain Sanchez, and also sent him an email.
[2020-02-08] MEDS: LACTOBACILLUS ACIDOPHILUS CAPSULE PO SCH ×2 (15:00→19:56)
--- NOTE | 2020-02-08 18:09 | NUR ---
The test engineer Daniel made referral to see the patient , visited the patient at 5 PM , Pt and expressed concern for his long hospitalization and delay in surgery process . Redrawer validated their feeling and provided pastoral counseling on virtue of patience and time , test engineer offered pastoral comfort , encouragement and prayer and daily devotion to read . Pt and expressed more peace and appreciated test engineer time and ministry chaplain Aldair
--- NOTE | 2020-02-08 18:38 | NUR ---
PT RESTING ON BED BED SIDE REPORT GIVEN TO ONCOMING NURSE
--- NOTE | 2020-02-08 20:31 | Consultation ---
DATE OF CONSULTATION: 02/08/2020 Cardiology Consultation Thank you so much for asking me to see this nice man in consultation. HISTORY OF PRESENT ILLNESS: Mr. Cisneros is a pleasant 89-year-old man, who was admitted on the with confusion and urinary tract infection. PAST MEDICAL HISTORY: Significant for hypertension and previous urinary problems including prostatectomy. He denies any history of any cardiac problem. He has also had previous cataract surgery, back surgery. PERSONAL AND SOCIAL HISTORY: He does not smoke or drink. All members of his family graduate in the [employer]. REVIEW OF SYSTEMS: CARDIAC: He denies any chest pain, palpitations, or syncope. PHYSICAL EXAMINATION: GENERAL: At this time, shows a pleasant elderly white man, who is alert and responsive, conversant. VITAL SIGNS: Blood pressure is 122/72, pulse is 70 and regular. HEAD, EYES, EARS, NOSE, AND THROAT: Unremarkable. NECK: No jugular venous distention. No bruits. THORAX: Heart sounds S1 and S2 are equal. No murmurs. LUNGS: Clear. ABDOMEN: Protuberant. EXTREMITIES: No cyanosis, clubbing, or edema. He has Garza catheter in place. He has a CPAP machine at bedside. IMAGING: EKG shows sinus rhythm with first-degree AV block and a right bundle branch block. LABORATORY STUDIES: Show urinary tract infection. ASSESSMENT: 1. Urinary tract infection. 2. Right bundle branch block. 3. First-degree AV block. 4. Sleep apnea. PLAN: We will obtain echocardiogram and carotid Doppler scan to help ascertain the preoperative risk for planned prostate surgery. We will follow closely with you. Thank you for asking me to see him in consultation. MD GINNA Messina/KIT /[id number] cc: MD Dominick Iverson MD
--- NOTE | 2020-02-08 21:00 | NUR ---
PATIENT REFUSE CPAP MACHINE AT BEDSIDE, STATING "WHAT TIME IS IT" ADVISED HIM THAT IT WAS 9PM, HE STATED " NAW WE CAN LEAVE THAT OFF FOR NOW", EDUCATED PT ABOUT THE ORDER, ASSISTED HIM BY PLACING HIS HEARING AID IN CHARGING STATION, GIVEN COMFORT CARE CALL LIGHT WITHIN REACH
[2020-02-09] VITALS (12 sets, daily range): BP systolic 115–157; BP diastolic 57–88
--- NOTE | 2020-02-09 00:40 | NUR ---
2ND ATTEMPT TO PLACE CPAP ON PATIENT ORDERED, REFUSED
[2020-02-09] MEDS: SODIUM CHLORIDE 0.9% 1000ML 1,000 ML IV SCH ×3 (01:14→23:25)
--- NOTE | 2020-02-09 02:25 | NUR ---
PT ALLOWED CPAP PLACEMENT
[2020-02-09 06:00] LABS: BASOPHILS % 0.4 % (0.0-1.0); EOSINOPHILS # (AUTO) 0.1 (0.0-0.4); EOSINOPHILS % 2.4 % (0.0-6.0); HEMATOCRIT 38.8 % (38.2-49.6); LYMPHOCYTES # (AUTO) 0.9 (1.0-3.2); LYMPHOCYTES % 15.6 % (18.0-39.1); MEAN CORPUSCULAR HEMOGLOBIN 28.7 pg (28-32); MEAN CORPUSCULAR HGB CONC 30.9 g/dL (31-35); MEAN CORPUSCULAR VOLUME 92.8 fL (81-99); MONOCYTES # (AUTO) 0.6 (0.2-0.8); MONOCYTES % 10.8 % (4.4-11.3); NEUTROPHILS # (AUTO) 3.9 (2.1-6.9); NEUTROPHILS % 70.3 % (38.7-80.0); PLATELET COUNT 139 x10e3/uL (140-360); RED BLOOD COUNT 4.18 x10e6/uL (4.3-5.7); RED CELL DISTRIBUTION WIDTH 13.8 % (11.7-14.4)
[2020-02-09 06:33] LABS: MAGNESIUM 1.9 MG/DL (1.3-2.1)
--- NOTE | 2020-02-09 07:19 | NUR ---
BSSR GIVEN TO SID HUTTON, PATIENT AWAKE ALERT, NO DISTRESS, REMAIN ON CONTACT ISOLATION ESBL URINE
[2020-02-09] MEDS: BALSAM PERU/CASTOR OIL 60 GM OINT...G. TP SCH (07:58)
[2020-02-09] MEDS: FAMOTIDINE 20 MG/2 ML VIAL IV SCH ×2 (07:58→17:11)
[2020-02-09] MEDS: LACTOBACILLUS ACIDOPHILUS CAPSULE PO SCH ×3 (07:58→21:04)
--- NOTE | 2020-02-09 08:49 | NUR ---
Oanh, liaison with [facility] stated she spoke with Dr. Vasquez and he plans possible transfer on Monday pending Dr. Delaney clearance. Faxed clinical updates.
[2020-02-09] MEDS: CEFEPIME 1GM/NS 0.9% 50 ML 50 ML IV SCH (11:09)
[2020-02-09] MEDS ORDERED: POTASSIUM PHOSPHATE 20 MM in SODIUM CHLORIDE 0.9% 250ML 250 ML IV SCH (11:45)
[2020-02-09] MEDS ORDERED: POTASSIUM PHOSPHATE 20 MM in SODIUM CHLORIDE 0.9% 250ML 250 ML IV ONE (11:45)
--- NOTE | 2020-02-09 19:16 | NUR ---
BEDSIDE SHIFT REPORT RECEIVED FROM DAY RN. PT IS ALERT AND ORIENTED X3. RESPIRATIONS ARE EVEN AND UNLABORED. TELE ON. PT DENIES PAIN. METZ LAST CHANGED 01/28/20 - FOR RETENTION ASSISTED AT HOME. METZ DRAINING CLEAR YELLOW URINE. 22G LFA PIV INTACT WITH HEALTHY SITE. NO EDEMA NOTED. CALL LIGHT WITHIN REACH. BED LOCKED AND IN LOW POSITION.
[2020-02-10] VITALS (7 sets, daily range): BP systolic 115–154; BP diastolic 64–81
[2020-02-10] MEDS: CEFEPIME 1GM/NS 0.9% 50 ML 50 ML IV SCH ×2 (00:26→11:00)
[2020-02-10] MEDS: SODIUM CHLORIDE 0.9% 1000ML 1,000 ML IV SCH (08:45)
[2020-02-10] MEDS: LACTOBACILLUS ACIDOPHILUS CAPSULE PO SCH ×3 (08:56→20:45)
[2020-02-10] MEDS: FAMOTIDINE 20 MG/2 ML VIAL IV SCH ×2 (08:57→17:00)
[2020-02-10] MEDS: BALSAM PERU/CASTOR OIL 60 GM OINT...G. TP SCH (09:01)
[2020-02-10] MEDS ORDERED: HYDRALAZINE HCL 25 MG TAB PO PRN (09:15)
[2020-02-10] MEDS: PREDNISONE 10 MG TAB PO SCH (10:05)
[2020-02-10] MEDS: TAMSULOSIN HCL 0.4 MG CAP PO SCH (10:05)
[2020-02-10] MEDS: AMLODIPINE BESYLATE 5 MG TAB PO SCH (10:05)
[2020-02-10] MEDS: LOSARTAN POTASSIUM 25 MG TAB PO SCH (10:05)
[2020-02-10] MEDS: FINASTERIDE 5 MG TAB PO SCH (10:06)
--- NOTE | 2020-02-10 12:30 | NUR ---
DR. HARPER AT BEDSIDE. OKAY TO D/C PT PER DR. HARPER. PAGED DR. HOWE AND INFORMED THE SAME.
--- NOTE | 2020-02-10 13:53 | NUR ---
Spoke with Dr. Vasquez regarding DC plan to inpatient rehab. He state pt with complicated/recurrent UTI. He spoke with Dr. Delaney this morning and Dr. Delaney plans for TURP on Monday.
--- NOTE | 2020-02-10 16:15 | NUR ---
Nutrition Screen Note RD Recommendation for Physician: -Recommend regular diet Plan of Care: RD following, monitoring for tolerance and adequacy Nutrition reason for involvement: Length of stay Primary Diagnose(s): AMS, UTI PMH: Peripheral neuropathy, cataract, osteoarthritis, urinary retention. Ht: 68 in Wt:208 lb BMI: 31.6 kg/m2 IBW:[address] Assessment: (02/10/20) Chart reviewed. Labs and meds reviewed. Pt is an 89 year old male admitted with AMS and UTI. It is recorded pt is consuming 50-100% of meals. Recommend modifying diet to regular diet. Will continue to monitor Current Diet: 1600 ADA Malnutrition Evaluation (02/10/20) The patient does not meet criteria for a specified degree of malnutrition at this time. Will re-evaluate at follow-up as appropriate. Diet Education Needs Assessment: Diet education not indicated. Nutrition Care Level: low Signed: Kady Barney RD, LD
--- NOTE | 2020-02-10 19:15 | NUR ---
BEDSIDE SHIFT REPORT GIVEN TO THE WATER MANGLE TENDER RN. PT DENIED FURTHER NEEDS.
[2020-02-10] MEDS: GABAPENTIN 300 MG CAP PO SCH (20:45)
[2020-02-11] VITALS (8 sets, daily range): BP systolic 113–144; BP diastolic 68–78
[2020-02-11 09:46] LABS: BASOPHILS % 0.3 % (0.0-1.0); EOSINOPHILS # (AUTO) 0.1 (0.0-0.4); EOSINOPHILS % 2.2 % (0.0-6.0); HEMATOCRIT 38.6 % (38.2-49.6); HEMOGLOBIN 11.9 g/dL (14.0-18.0); LYMPHOCYTES # (AUTO) 1.4 (1.0-3.2); LYMPHOCYTES % 21.9 % (18.0-39.1); MEAN CORPUSCULAR HGB CONC 30.8 g/dL (31-35); MEAN CORPUSCULAR VOLUME 90.8 fL (81-99); MONOCYTES # (AUTO) 0.7 (0.2-0.8); MONOCYTES % 11.7 % (4.4-11.3); NEUTROPHILS % 63.3 % (38.7-80.0); PLATELET COUNT 129 x10e3/uL (140-360); RED BLOOD COUNT 4.25 x10e6/uL (4.3-5.7); RED CELL DISTRIBUTION WIDTH 13.7 % (11.7-14.4)
[2020-02-11 09:47] LABS: ANION GAP 7.6 mmol/L (8-16); BLOOD UREA NITROGEN 13 mg/dL (7-26); BUN/CREATININE RATIO 15 (6-25); CALCIUM 10.5 mg/dL (8.4-10.2); CARBON DIOXIDE 27 mmol/L (22-29); CHLORIDE 106 mmol/L (98-107); CREATININE, SERUM 0.84 mg/dL (0.72-1.25); EST GLOMERULAR FILTRATION RATE > 60 ML/MIN (60-); GLUCOSE 113 mg/dL (74-118); POTASSIUM 3.6 mmol/L (3.5-5.1); SODIUM 137 mmol/L (136-145)
[2020-02-11] MEDS: AMLODIPINE BESYLATE 5 MG TAB PO SCH (10:40)
[2020-02-11] MEDS: FAMOTIDINE 20 MG/2 ML VIAL IV SCH ×2 (10:40→16:36)
[2020-02-11] MEDS: LOSARTAN POTASSIUM 25 MG TAB PO SCH (10:40)
[2020-02-11] MEDS: PREDNISONE 10 MG TAB PO SCH (10:40)
[2020-02-11] MEDS: TAMSULOSIN HCL 0.4 MG CAP PO SCH (10:40)
[2020-02-11] MEDS: FINASTERIDE 5 MG TAB PO SCH (10:41)
[2020-02-11] MEDS: BALSAM PERU/CASTOR OIL 60 GM OINT...G. TP SCH (10:41)
[2020-02-11] MEDS: LACTOBACILLUS ACIDOPHILUS CAPSULE PO SCH ×3 (10:41→21:42)
[2020-02-11] MEDS: CEFEPIME 1GM/NS 0.9% 50 ML 50 ML IV SCH ×2 (12:50)
--- NOTE | 2020-02-11 19:50 | NUR ---
report given to oncoming nurse, walking rounds complete.
--- NOTE | 2020-02-11 19:55 | NUR ---
Patient received sitting up in bed. AAO x 4. Patient had no complaints of pain. Respirations even and non-labored. Garza catheter draining clear pale yellow urine. Fall precautions implemented. Patient instructed to call for assistance when needed. Call light within reach.
[2020-02-11] MEDS: GABAPENTIN 300 MG CAP PO SCH (21:42)
[2020-02-12] VITALS (8 sets, daily range): BP systolic 109–148; BP diastolic 67–79
--- NOTE | 2020-02-12 01:30 | NUR ---
Patient informed about upcoming surgical procedure and NPO status after midnight. Patient verbalized understanding and signed "Disclosure and Consent" form.
[2020-02-12] MEDS: CEFEPIME 1GM/NS 0.9% 50 ML 50 ML IV SCH ×3 (01:50→23:37)
--- NOTE | 2020-02-12 05:36 | NUR ---
Airam-care performed. Wound dressing performed per MD's orders. Patient tolerated well.
--- NOTE | 2020-02-12 07:00 | NUR ---
Walking rounds done. Patient resting comfortably. BSSR given to oncoming nurse regarding patient's status.
--- NOTE | 2020-02-12 08:42 | NUR ---
Patient is transported for procedure at this time.
[2020-02-12] MEDS: BALSAM PERU/CASTOR OIL 60 GM OINT...G. TP SCH (09:00)
[2020-02-12] MEDS: LOSARTAN POTASSIUM 25 MG TAB PO SCH (09:00)
[2020-02-12] MEDS: LACTOBACILLUS ACIDOPHILUS CAPSULE PO SCH ×3 (09:00→21:20)
[2020-02-12] MEDS: FINASTERIDE 5 MG TAB PO SCH (09:00)
[2020-02-12] MEDS: FAMOTIDINE 20 MG/2 ML VIAL IV SCH ×2 (09:00→17:00)
[2020-02-12] MEDS: TAMSULOSIN HCL 0.4 MG CAP PO SCH (09:00)
[2020-02-12] MEDS: PREDNISONE 10 MG TAB PO SCH (09:00)
[2020-02-12] MEDS: AMLODIPINE BESYLATE 5 MG TAB PO SCH (09:00)
[2020-02-12] MEDS ORDERED: IOPAMIDOL 300MG/ML 50ML INFUS..BTL IV ONE (09:04)
[2020-02-12] MEDS ORDERED: B&O 60MG R/S 60 MG SUPP PR ONE (09:04)
[2020-02-12] MEDS ORDERED: B&O 60MG R/S 60 MG SUPP PR PRN (12:15)
--- NOTE | 2020-02-12 12:45 | NUR ---
Patient is back to the room from procedure. Urinary catheter intact, CBI, Reddish-colored urine to bag. Denies pain at this time. Respiration even and unlabored without SOB. Call light in reach.
--- NOTE | 2020-02-12 13:48 | NUR ---
[facility] [phone].
--- NOTE | 2020-02-12 18:50 | NUR ---
CBI output is 16,150 ml
[2020-02-12] MEDS ORDERED: SEVOFLURANE INHAL SOLN 250 ML PEN BTL ONE (20:05)
[2020-02-12] MEDS ORDERED: LIDOCAINE HCL 2% LOCAL INJ 5 ML SDV VIAL INJ ONE (20:05)
[2020-02-12] MEDS ORDERED: GLYCOPYRROLATE INJ 0.2 MG/ML VIAL ONE (20:05)
[2020-02-12] MEDS ORDERED: PROPOFOL IV EMULSION 10 MG/ML 20 ML VIAL ONE (20:05)
[2020-02-12] MEDS ORDERED: ONDANSETRON HCL INJ 2MG/ML 2ML 2 MG/ML VIAL ONE (20:05)
[2020-02-12] MEDS: GABAPENTIN 300 MG CAP PO SCH (21:20)
[2020-02-13] VITALS: BP 126/71
[2020-02-13 04:00] VITALS: BP 97/65
[2020-02-13 05:44] LABS: BASOPHILS % 0.5 % (0.0-1.0); EOSINOPHILS # (AUTO) 0.2 (0.0-0.4); EOSINOPHILS % 2.1 % (0.0-6.0); HEMATOCRIT 39.7 % (38.2-49.6); HEMOGLOBIN 12.4 g/dL (14.0-18.0); LYMPHOCYTES # (AUTO) 1.8 (1.0-3.2); LYMPHOCYTES % 22.6 % (18.0-39.1); MEAN CORPUSCULAR HGB CONC 31.2 g/dL (31-35); MEAN CORPUSCULAR VOLUME 92.8 fL (81-99); MONOCYTES # (AUTO) 0.9 (0.2-0.8); MONOCYTES % 11.2 % (4.4-11.3); PLATELET COUNT 146 x10e3/uL (140-360); RED BLOOD COUNT 4.28 x10e6/uL (4.3-5.7); RED CELL DISTRIBUTION WIDTH 13.6 % (11.7-14.4)
[2020-02-13 06:24] LABS: ANION GAP 10.8 mmol/L (8-16); BLOOD UREA NITROGEN 17 mg/dL (7-26); BUN/CREATININE RATIO 18 (6-25); CALCIUM 10.2 mg/dL (8.4-10.2); CARBON DIOXIDE 26 mmol/L (22-29); CHLORIDE 109 mmol/L (98-107); CREATININE, SERUM 0.93 mg/dL (0.72-1.25); EST GLOMERULAR FILTRATION RATE > 60 ML/MIN (60-); GLUCOSE 83 mg/dL (74-118); POTASSIUM 4.8 mmol/L (3.5-5.1); SODIUM 141 mmol/L (136-145)
[2020-02-13 07:39] VITALS: BP 111/91
[2020-02-13 08:14] VITALS: BP 111/91
--- NOTE | 2020-02-13 08:17 | NUR ---
Spoke with Dr. Delaney who said pt can dc to [facility] today with Greg. Oanh was notified and said will give MOT after her morning meeting.
[2020-02-13] MEDS: FAMOTIDINE 20 MG/2 ML VIAL IV SCH ×2 (09:23→16:59)
[2020-02-13] MEDS: FINASTERIDE 5 MG TAB PO SCH (09:24)
[2020-02-13] MEDS: TAMSULOSIN HCL 0.4 MG CAP PO SCH (09:24)
[2020-02-13] MEDS: LACTOBACILLUS ACIDOPHILUS CAPSULE PO SCH ×2 (09:24→16:59)
[2020-02-13] MEDS: LOSARTAN POTASSIUM 25 MG TAB PO SCH (09:24)
[2020-02-13] MEDS: PREDNISONE 10 MG TAB PO SCH (09:24)
[2020-02-13] MEDS: BALSAM PERU/CASTOR OIL 60 GM OINT...G. TP SCH (09:24)
[2020-02-13] MEDS: AMLODIPINE BESYLATE 5 MG TAB PO SCH (09:24)
--- NOTE | 2020-02-13 10:58 | NUR ---
ACUTE REHABILITATION DISCHARGE INFORMATION PATIENT HAS BEEN ACCEPTED TO: [address] [place] [address] ACCEPTING WRAPPER CASHIER: Richa Ha, MACHINE TOOL REBUILDER ACCEPTING MD: Dr. David Pimentel ROOM: will be assigned on report NURSE CALL REPORT TO: [phone] THE FOLLOWING DOCUMENTS MUST ACCOMPANY PATIENT FOR TRANSFER: copy of chart. transfer MAR COPIED CHART: nursing unit clerk MOT INFO RECEIVED FROM: Oanh with [facility] ORDER/RECONCILED MED LIST: to be obtained by bedside RN [id number] DNR: n/a MOT completed and placed with pt's packet at nurses station. DANIELLA Will was notified of MOT.
[2020-02-13] MEDS: CEFEPIME 1GM/NS 0.9% 50 ML 50 ML IV SCH (11:49)
[2020-02-13 11:52] VITALS: BP 112/75
[2020-02-13 16:18] VITALS: BP 98/56
--- NOTE | 2020-02-13 23:16 | Discharge Summary ---
PRIMARY CARE PHYSICIAN: Dr. Erik Rogel. CONSULTANTS: 1. Dr. David Rodney. 2. Dr. Dominick Delaney. FINAL DIAGNOSES: 1. Toxic encephalopathy secondary to urinary tract infection, complicated with urinary retention, enlarged prostate with prostatitis. 2. Complicated urinary tract infection with Pseudomonas aeruginosa bacteria, associated with enlarged prostate and prostatitis. 3. Status post fall with T12 compression fracture, which is old, but causing debility and ambulatory problem associated with pain. 4. Multiple chronic baseline problem. Cardiac clearance was done. SUMMARY: This is an 89-year-old male, came into the hospital with confusion. He has also had urinary retention. He had a Garza catheter in place, complicated with urinary tract infection due to indwelling Garza catheter and also urinary obstruction with prostatitis. The patient was placed on empiric antibiotic and subsequently narrowed down to Pseudomonas aeruginosa. The patient will require 10 more days of IV antibiotics when he go to rehab. The patient also had lower back pain, worsening since his fall prior to his admission. He had T12 compression fracture. The patient was treated. He did better. Fever resolved. Leukocytosis and his mental status all completely improved. Because of his recurrent urinary obstruction with indwelling Garza catheter, he underwent a TURP procedure done by Dr. Dominick Delaney on February 12, 2020. The patient responded well. He is on continuous urinary bladder irrigation now. Dr. Dominick Delaney will discontinue the continuous urinary bladder irrigation and cleared the patient for acute rehab and I agree as well. I will send the patient to acute rehab with Dr. Dominick Delaney's consult. Medication reconciliation is done. The patient is otherwise stable. He will go with a Garza catheter. He will have intermittent flushing per Dr. Dominick Delaney. Dr. Dominick Delaney will follow the patient at the facility. The patient is stable, discharged today. Medication reconciliation is done. Please review the MAR, and the patient will continue with his treatment along with his physical therapy. Laboratory; sodium 141, potassium 4.8, chloride 109, bicarb 26, BUN 17, creatinine 0.9, glucose 83. WBC 7.9, hemoglobin 12.4, hematocrit 39.7, and platelets 146. AST 13, ALT 11, alkaline phosphatase 44, and total bilirubin 0.5. The patient is stable, discharged to the acute rehab and continue with medication on the check MAR that I went ahead and did for the patient prior to this discharge. MD ZHANG Iverson/KIT /[id number]
--- OUTSIDE RECORDS SUMMARY | 2020-03-12 23:42 | XMS REPORT | Summary of Care ---
Author Author [facility] - Health Organization [facility] - Health Address Unknown Phone Unavailable Care Team Providers Care Die Tripper Name Role Phone Erik Rogel PCP Reason for Visit * Reason Comments Transition Of Care Encounter Details Care Team Description Date Type Department Kimmy Bains, RN [phone] Transition Of Care 10/22/2019 [facility] Allergies Comments Active Allergy Reactions Severity Noted Date Oxycodone Hcl Hallucination 10/14/2019 s documented as of this encounter (statuses as of 10/22/2019) Medications End Date Status Medication Sig Dispensed Refills Start Date Active losartan 50 mg Take 50 mg by 0 tabletIndications: mouth daily. 0 hypertension Indications: high blood pressure Active Penicillamine 250 mg Take 500 mg 0 TabIndications: E. coli by mouth 3 0 urinary tract infection (three) times daily. Indications: urinary tract infection due to E. coli bacteria Active gabapentin 300 mg Take 300 mg 0 capsuleIndications: pain by mouth at 0 bedtime. Indications: pain Active mirabegron (MYRBETRIQ) 50 Take 50 mg by 0 mg tablet mouth daily. 0 Active finasteride 5 mg tablet Take 5 mg by 0 mouth daily. 0 Active amLODIPine 2.5 mg tablet Take 2.5 mg 0 10/14 by mouth 0 daily. Active tamsulosin HCl Take 0.4 mg 0 (TAMSULOSIN ORAL) by mouth 2 0 (two) times daily. Active furosemide 20 mg tablet Take 20 mg by 0 mouth daily. 0 Active predniSONE 10 mg tablet Take 10 mg by 0 mouth daily. 0 11/20/2019 Active docusate 100 mg Take 1 30 capsule 0 capsuleIndications: Acute capsule by 0 cystitis without mouth once hematuria daily as needed for Constipation for up to 30 days. documented as of this encounter (statuses as of 10/22/2019) Active Problems Problem Noted Date Myasthenia gravis 10/15/2019 HTN (hypertension) 10/15/2019 Leg weakness, bilateral 10/15/2019 Lumbar stenosis 10/15/2019 Generalized weakness 10/14/2019 documented as of this encounter (statuses as of 10/22/2019) Social History Date Tobacco Use Types Packs/Day Years Used Never Assessed Sex Assigned at Date Recorded Not on file Industry Job Start Date Occupation Not on file Not on file Not on file Travel End Travel History Travel Start No recent travel history available. documented as of this encounter Last Filed Vital Signs Not on filedocumented in this encounter Plan of Treatment Care Team Description Date Type Specialty Joni Mcallister MD [address] [place] [address]. 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
--- OUTSIDE RECORDS SUMMARY | 2020-03-12 23:42 | XMS REPORT | Summary of Care ---
Author Author [facility] - Health Organization [facility] - Health Address Unknown Phone Unavailable Care Team Providers Care Out Patient Therapist Name Role Phone Erik Rogel PCP Reason for Visit * Reason Comments Results Encounter Details Care Team Description Date Type Department Joni Mcallister MD [address] [place] [address]. [place] [phone] Results 10/29/2019 Telephone [facility] [address] [phone] Allergies Comments Active Allergy Reactions Severity Noted Date Oxycodone Hcl Hallucination 10/14/2019 s documented as of this encounter (statuses as of 10/31/2019) Medications End Date Status Medication Sig Dispensed [...] (MYRBETRIQ) 50 Take 50 mg by 0 /0 mg tablet mouth daily. 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
--- OUTSIDE RECORDS SUMMARY | 2020-03-12 23:42 | XMS REPORT | Summary of Care ---
Author Author [facility] - Health Organization [facility] - Health Address Unknown Phone Unavailable Care Team Providers Care Conference Coordinator Name Role Phone Pebbles Erik PCP Reason for Referral * MRI/CAT Scan (Routine) Referred By Contact Referred To Contact Status Reason Specialty Diagnoses / Procedures Joni Mcallister MD [address] [place] [phone] New Request Diagnostic Diagnoses Radiology Chronic bilateral low back pain without sciatica P rocedures MR LUMBAR SPINE W WO CONTRAST Reason for Visit * Reason Comments Results Encounter Details Care Team Description Date Type Department Joni Mcallister MD [address] [place] [phone] Results 10/31/2019 Telephone [facility] [address] [phone] Allergies Comments Active Allergy Reactions [...] (MYRBETRIQ) 50 Take 50 mg by 0 202 mg tablet mouth daily. 0 Active finasteride [...] Description Date Type Specialty Joni Mcallister MD [address] [place] [phone] 11/04/2019 Office Visit Neurological Surger y Order Schedule Name Type Priority Associated Diag noses Expected: 01/31/2020, Expires: 1 MR LUMBAR SPINE W WO IMAGING Routine Chronic b ilateral low CONTRAST back pain without sciatica Health Maintenance Due Date Last Done Comments DTaP,Tdap,and Td Vaccines 12[birth year]28/1941 (1 - Tdap) Zoster Recombinant 12/28/1981 Vaccine (SHINGRIX) (1 of 2) Medicare Wellness Visit 12/28/1996 PNEUMOCOCCAL VACCINES 65+ 12/28/1996 (1 of 2 - PCV13) INFLUENZA VACCINE (#1) 2019 documented as of this encounter Results Not on filedocumented in this encounter Visit Diagnoses Diagnosis Chronic bilateral low back pain without sciatica - Primary documented in this encounter Additional Health Concerns Resolved Time Infection Noted Time Contact - ESBL 10/17/2019 4:39 PM QUESTIONED DOCUMENTS EXAMINER documented as of this encounter Insurance Type Payer Benefit Subscriber ID Effective Phone Address Plan / Dates Group Medicare Adv PPO [facility] [id number] 2019-P MEDICARE ADVANTAGE MEDICARE resent COMPLETE CHOICE documented as of this encounter
--- OUTSIDE RECORDS SUMMARY | 2020-03-12 23:42 | XMS REPORT | Summary of Care ---
Author Author [facility] - Health Organization [facility] - Health Address Unknown Phone Unavailable Care Team Providers Care Commercial Singer Name Role Phone Pebbles Erik PCP Reason for Referral * MRI/CAT Scan (Routine) Referred By Contact Referred To Contact Status Reason Specialty Diagnoses / Procedures Joni Mcallister MD [address] [place] [phone] New Request Diagnostic Diagnoses Radiology Chronic bilateral low back pain without sciatica P rocedures MR LUMBAR SPINE W WO CONTRAST Reason for Visit * Reason Comments Results Encounter Details Care Team Description Date Type Department Joni Mcallister MD [address] [place] [phone] Results 10/31/2019 Telephone [facility] [address] [phone] Allergies Comments Active Allergy Reactions Severity Noted Date Oxycodone Hcl Hallucination 10/14/2019 s documented as of this encounter (statuses as of 11/01/2019) Medications End Date Status Medication Sig Dispensed [...] as of this encounter (statuses as of 11/01/2019) Active Problems Problem Noted Date Myasthenia gravis 10/15/2019 HTN (hypertension) 10/15/2019 Leg weakness, bilateral 10/15/2019 Lumbar stenosis 10/15/2019 Generalized weakness 10/14/2019 documented as of this encounter (statuses as of 11/01/2019) Social History Date Tobacco Use Types Packs/Day [...] Description Date Type Specialty Joni Mcallister MD [address] [place] [phone] 02/03/2020 Office Visit Neurological Surger y Order Schedule [...] Time Contact - ESBL 10/17/2019 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
--- OUTSIDE RECORDS SUMMARY | 2020-03-12 23:42 | XMS REPORT | Continuity of Care Document ---
Author Author [facility] t Organization [facility] Address [address] [place] [address] Phone Unavailable Care Team Providers Care Astrobiologist Name Role Phone Carmen ROGEL PCP MARCIANO HOWE Attphychalo Unavailable Joni Mcallister MD Attphys MARCIANO HOWE Admamari Unavailable Payers Payer Name Policy Type Policy Number Effective Date Expiration Date [facility] [id number] 2019 00:00:00 [facility] Cdc Review Covid19 [id number] [facility] Problems Condition Name Condition Details Condition Category Status Onset Date Resolution Date Last Treatment Date Treating Clinician Comments Source Urinary tract infection Problem Active [facility] Altered mental status Problem Active [facility] Allergies, Adverse Reactions, Alerts Allergy Name Allergy Type Status Severity Reaction(s) Onset Date Inacti ve Date Treating Clinician Comments Source Oxycodone Propensity to adverse reactions Active Moderate CONF USION 2020-02-04 00:00:00 [facility] oxycodone DA Active [place] 2019-12-16 00:00:00 [facility] oxycodone DA Active [place] 2017-01-15 00:00:00 [facility] Social History Social Habit Start Date Stop Date Quantity Comments Source Sex Assigned At 1930 00:00:00 1930 00:00:00 Male [facility] Medications Ordered Medication Name Filled Medication Name Start Date Stop Da te Current Medication? Ordering Clinician Indication Dosage Frequency Signature (SIG) Comments Components Source Amlodipine Besylate Amlodipine Besylate Yes 2.5 Daily [facility] Calcium Carbonate Calcium Carbonate Yes 500 Twic e A Day [facility] Finasteride (Proscar) 5 Mg TABLET Finasteride (Proscar) 5 Mg TABLET Yes 20 Daily [facility] Finasteride (Proscar) 5 Mg TABLET Finasteride (Proscar) 5 Mg TABLET Yes 5 Daily [facility] Furosemide (Lasix) 20 Mg TABLET Furosemide (Lasix) 20 Mg TABLET Yes 20 Daily [facility] Furosemide Furosemide Yes 20 Daily [facility] Gabapentin Gabapentin Yes 300 Bedtime [facility] Losartan Potassium Losartan Potassium Yes 50 Da katt [facility] Mirabegron (Myrbetriq) 50 Mg TAB.ER.24H Mirabegron (Myrbetri q) 50 Mg TAB.ER.24H Yes Daily [facility] Prednisone Prednisone Yes 10 Daily [facility] Tamsulosin Hcl (Flomax*) 0.4 Mg CAP Tamsulosin Hcl (Flomax*) 0.4 Mg C AP Yes .4 Daily [facility] Vital Signs Vital Name Observation Time Observation Value Comments Source Body Temperature 2020-02-13 16:18:00 97.9 [degF] [facility] Weight 2020-02-13 00:40:00 208 [lb_av] [facility] BMI (Body Mass Index) 2020-02-13 00:40:00 31.6 kg/m2 [facility] Procedures Procedure Date / Time Performed Performing Clinician [facility] e Computed tomography of abdomen and pelvis with contrast 00:00:00 [facility] Computed tomography of brain without radiopaque contrast 2020-01 00:00:00 [facility] Encounters Start Date/Time End Date/Time Encounter Type Admission Type Attendi [facility] Care Department Encounter ID Source 2020-02-04 16:30:00 2020-02-04 16:30:00 Admitted Inpatient 1 MARCIANO PIERRE [facility] [id number] [facility] 2019-10-31 00:00:00 2019-10-31 00:00:00 Telephone Duran Mcallister [facility] Office Building [id number] Results Test Description Test Time Test Comments Results Result Comments Source Blood leukocytes automated count (number/volume) 2020-02-13 05:20:00 Test Item White Blood Count (test code = 6690-2) 7.93 4.8-10.8 [facility] automated count (number/volume)2020-02-13 05:20:00* Test Item Value Reference Range Interpretation Comments Red Blood Count (test code = 789-8) 4.28 4.3-5.7 [facility] hemoglobin measurement (moles/volume)2020-02-13 05:20:00* Test Item Value Reference Range Interpretation Comments Hemoglobin (test code = 68612-9) 12.4 14.0-18.0 [facility] HospitalAutomated blood hematocrit (volume fraction)2020-02-13 05:20:00* Test Item Value Reference Range Interpretation Comments Hematocrit (test code = 4544-3) 39.7 38.2-49.6 [facility] HospitalAutomated erythrocyte mean corpuscular bcuede1403-40-07 05:20:00* Test Item Value Reference Range Interpretation Comments Mean Corpuscular Volume (test code = 787-2) 92.8 81-99 [facility] HospitalAutomated erythrocyte mean corpuscular hemoglobin (mass per erythrocyte)2020-02-13 05:20:00* Test Item Value Reference Range Interpretation Comments Mean Corpuscular Hemoglobin (test code = 785-6) 29.0 28-32 [facility] HospitalAutom[facility] erythrocyte mean corpuscular hemoglobin concentration measurement (mass/volume)2020-02-13 05:20:00* Test Item Value Reference Range Interpretation Comments Mean Corpuscular Hemoglobin Concent (test code = 786-4) 31.2 31-35 [facility] HospitalRDW NsvRe-Xra2759-09-02 05:20:00* Test Item Value Reference Range Interpretation Comments Red Cell Distribution Width (test code = 20426-6) 13.6 11.7 -14.4 [facility] HospitalAutom[facility] blood platelet count (count/volume)2020-02-13 05:20:00* Test Item Value Reference Range Interpretation Comments Platelet Count (test code = 777-3) 146 140-360 [facility] HospitalAutom[facility] blood segmented neutrophil count as percentage of total yvgxeqhkzu4085-89-58 05:20:00* Test Item Value Reference Range Interpretation Comments Neutrophils (%) (Auto) (test code = 87187-9) 63.0 38.7-80.0 [facility] HospitalAutom[facility] blood lymphocyte count as percentage ot total zozycywdja5125-81-23 05:20:00* Test Item Value Reference Range Interpretation Comments Lymphocytes (%) (Auto) (test code = 736-9) 22.6 18.0-39.1 [facility] HospitalAutomated blood monocyte count as percentage of total twyrekxodh6571-73-38 05:20:00* Test Item Value Reference Range Interpretation Comments Monocytes (%) (Auto) (test code = 5905-5) 11.2 4.4-11.3 [facility] HospitalAutomated blood eosinophil count as percentage of total vqxoieyrcj7460-58-49 05:20:00* Test Item Value Reference Range Interpretation Comments Eosinophils (%) (Auto) (test code = 713-8) 2.1 0.0-6.0 [facility] HospitalAutomated blood basophil count as percentage of total htfrgejodv9084-65-29 05:20:00* Test Item Value Reference Range Interpretation Comments Basophils (%) (Auto) (test code = 706-2) 0.5 0.0-1.0 [facility] HospitalFluoroscopic procedure less than one hour rxuiazjc7363-85-57 05:20:00* Test Item Value Reference Range Interpretation Comments IM GRANULOCYTES % (test code = IM GRANULOCYTES %) 0.6 0.0- 1.0 [facility] HospitalAutomated blood neutrophil count 2020-02-13 05:20:00* Test Item Value Reference Range Interpretation Comments Neutrophils # (Auto) (test code = 751-8) 5.0 2.1-6.9 [facility] HospitalBlood lymphocytes count (number/volume) 2020-02-13 05:20:00* Test Item Value Reference Range Interpretation Comments Lymphocytes # (Auto) (test code = 32309-2) 1.8 1.0-3.2 [facility]Bl[facility] monocytes automated count (number/volume)2020-02-13 05:20:00* Test Item Value Reference Range Interpretation Comments Monocytes # (Auto) (test code = 742-7) 0.9 0.2-0.8 [facility] HospitalAutomated blood eosinophil count 2020-02-13 05:20:00* Test Item Value Reference Range Interpretation Comments Eosinophils # (Auto) (test code = 711-2) 0.2 0.0-0.4 [facility] HospitalAutomated blood basophil count (count/volume)2020-02-13 05:20:00* Test Item Value Reference Range Interpretation Comments Basophils # (Auto) (test code = 704-7) 0.0 0.0-0.1 [facility] HospitalFluoroscopic procedure less than one hour uakdquxs5570-50-50 05:20:00* Test Item Value Reference Range Interpretation Comments Absolute Immature Granulocyte (auto (jaylon t code = Absolute Immature Granulocyte (auto) 0.05 0-0.1 [facility] sodium measurement (moles/volume)2020-02-13 05:20:00* Test Item Value Reference Range Interpretation Comments Sodium Level (test code = 2951-2) 141 136-145 [facility] potassium measurement (moles/volume)2020-02-13 05:20:00* Test Item Value Reference Range Interpretation Comments Potassium Level (test code = 2823-3) 4.8 3.5-5.1 [facility] chloride measurement (moles/volume)2020-02-13 05:20:00* Test Item Value Reference Range Interpretation Comments Chloride Level (test code = 2075-0) 109 98-107 [facility] carbon dioxide, total measurement (moles/volume)2020-02-13 05:20:00* Test Item Value Reference Range Interpretation Comments Carbon Dioxide Level (test code = 2028-9) 26 22-29 [facility] anion ibm5202-34-21 05:20:00* Test Item Value Reference Range Interpretation Comments Anion Gap (test code = 22983-5) 10.8 8-16 [facility] urea nitrogen measurement (mass/volume)2020-02-13 05:20:00* Test Item Value Reference Range Interpretation Comments Blood Urea Nitrogen (test code = 3094-0) 17 7-26 [facility] creatinine measurement (mass/volume)2020-02-13 05:20:00* Test Item Value Reference Range Interpretation Comments Creatinine (test code = 2160-0) 0.93 0.72-1.25 [facility] urea nitrogen/creatinine mass zbcxo4289-41-08 05:20:00* Test Item Value Reference Range Interpretation Comments BUN/Creatinine Ratio (test code = 3097-3) 18 6-25 [facility] HospitalEstimated glomerular filtration rate (GFR) iyrrdaaosdjcf6433-40-12 05:20:00* Test Item Value Reference Range Interpretation Comments Estimat Glomerular Filtration Rate (test code = 837850453) > 60 >60 Ranges were taken from the National Kidney Disease Education Program and the [facility] [employer] literature.Reference ranges:60 or greater: Wsgvph08-13 ( for 3 consecutive months): Chronic kidney disease 15 or less: Kidney failureUT Health East [place] Jacksonville HospitalGlucose rxwehntdywx5576-44-67 05:20:00* Test Item Value Reference Range Interpretation Comments Glucose Level (test code = GAL6852) 83 74-118 [facility] calcium measurement (mass/volume)2020-02-13 05:20:00* Test Item Value Reference Range Interpretation Comments Calcium Level (test code = 44155-9) 10.2 8.4-10.2 [facility] HospitalCapillary blood glucose measurement by glucometer (mass/volume)2020-02-11 19:14:00* Test Item Value Reference Range Interpretation Comments Bedside Glucose (test code = 67227-6) 182 70-120 Meter ID: [id number] [facility] bfkpjrsyetf7258-00-87 05:00:00* Test Item Value Reference Range Interpretation Comments Phosphorus Level (test code = NQD2263) 2.0 2.3-4.7 [facility] magnesium measurement (mass/volume)2020-02-09 05:00:00* Test Item Value Reference Range Interpretation Comments Magnesium Level (test code = 66009-6) 1.9 1.3-2.1 [facility] or plasma thyrotropin measurement by detection limit <= 0.005 miu/l (units/volume)2020-02-08 06:01:00* Test Item Value Reference Range Interpretation Comments Thyroid Stimulating Hormone (TSH) (test code = 97343-7) 2.416 0.350-4.940 [facility] HospitalBacterial urine axlroer2774-99-97 15:50:00* Test Item Value Reference Range Interpretation Comments Urine Culture (test code = 630-4) PSEUDOMONAS AERUGINOSA [facility] HospitalLUMBAR 3 LAKP0291-99-50 11:55:00 [facility] [address] [address] Patient Name: DALE DSOUZA MR #: [id number] : 1930 Age/Sex: 89/M Req #: [id number] Adm Physician: MARCIANO HOWE MD Ordered by: MARCIANO HOWE MD Report #: [id number] Location: MED/SURG2 Room/Bed: [facility] Procedure: [id number] DX/LUMBAR 3 VIE W Exam Date: 02/06/20 Exam Time: 112 REPORT STATUS: Signed EXAMINATION: HIPS BILAT 3-4VWS (+/- PELVIS), LUMBAR 3 VIEW INDICATION: Fall COMPARISON: N one FINDINGS: AP and lateral views of the lumbar spine demonstrat e postoperative findings of L1-S1 fusion. Age-indeterminate T12 compression fr acture. Status post T10 and T11 vertebral augmentation. Severe multilevel dege nerative changes of the visualized spine. IVC filter in place. Atherosclerotic arterial calcic dictations. AP view of the pelvis and AP and frog-leg vi ews of both hips demonstrate postoperative findings of right total hip replace ment. Alignment is anatomic. No acute osseous injury. Severe left hip joint de generative changes with on bone contact and osteophyte formation. Phleboliths in the pelvis. IMPRESSION: Age indeterminate T12 compression fracture. F indings of prior L1-S1 fusion and T10 and T11 vertebral augmentation. [facility] tomic alignment status post right total hip replacement. Severe apache left hip degenerative changes. Signed by: Ruddy Mejia MD on 02/06/2020 12:01 PM Dictated By: RUDDY MEJIA MD 1201 COPY TO: TIARA HOWE MD HIPS BILAT 3-4VWS (+/- PELVIS)2020-02-06 11:55:[address] [address] Patient Name: DALE DSOUZA MR #: [id number] : 1930 Age/Sex: 89/M Req #: [id number] Adm Physician: MARCIANO HOWE MD Ordered by: MARCIANO HOWE MD Report #: [id number] Location: MED/SURG2 Room/Bed: [facility] Procedure: [id number] DX/HIPS BILAT 3 -4VWS (+/- PELVIS) Exam Date: Exam Time: REPORT STATUS: Signed EXAMINATION: HIPS BILAT 3-4VWS (+/- PELVIS), LUMBAR 3 VIEW INDICATION: Fall COMPARIS ON: None FINDINGS: AP and lateral views of the lumbar spine demon strate postoperative findings of L1-S1 fusion. Age-indeterminate T12 compressi on fracture. Status post T10 and T11 vertebral augmentation. Severe multilevel degenerative changes of the visualized spine. IVC filter in place. Atheroscle rotic arterial calcic dictations. AP view of the pelvis and AP and frog-l eg views of both hips demonstrate postoperative findings of right total hip re placement. Alignment is anatomic. No acute osseous injury. Severe left hip gabriela nt degenerative changes with on bone contact and osteophyte formation. Phlebol iths in the pelvis. IMPRESSION: Age indeterminate T12 compression fractu re. Findings of prior L1-S1 fusion and T10 and T11 vertebral augmentation. Anatomic alignment status post right total hip replacement. Severe apache left hip degenerative changes. Signed by: Ruddy Mejia MD on 02/06/2020 12:0 1 PM Dictated By: RUDDY MEJIA MD 00 Transcribed By: BENNIE on 02/06/201200 COPY TO: MARCIANO HOWE MD CT ABDOMEN/PELVIS [id number] 12:58:00 [address] [place] [address] Patient Name: DALE DSOUZA MR #: [id number] : 1930 Age/Sex: 89/M Req #: [id number] Adm Physician: MARCIANO HOWE MD Ordered by: MARCIANO HOWE MD Report #: [id number] Location: MED/SURG2 Room/Bed: 205 Procedure: [id number] CT/CT ABDOMEN/P BOZENA W Exam Date: 02/05/20 Exam Time: 1105 REPORT STATUS: Signed CT of the abdomen and pelvis, with contrast. History: Complicated UTI. Comparison: N one available. Technique: Multidetector CT scanning of the abdomen and pelv is was performed from the level of the lung bases to the inferior pubic rami a fter intravenous administration of contrast. Coronal and sagittal multiplanar reformations were obtained. RADIATION DOSE: Total DLP: 583.06 mGy *cm Dose modulation, iterative reconstruction, and/or weight based adjust ment of the mA/kV was utilized to reduce the radiation dose to as low as reaso nably achievable. FINDINGS: Bandlike opacities are identified within t he left greater than right lung base suggestive of atelectasis/scarring. The i pamela portion of the heart demonstrates no significant abnormalities. The liver is normal in size and attenuation. The gallbladder is surgically absent . There is mild prominence of the central intrahepatic bile ducts and common b ile duct measuring up to 10 mm which may be secondary to reservoir phenomenon postcholecystectomy. No radiopaque biliary stone is identified. There are postsurgical changes of the GE junction. There is a moderate size hiatal herni a present. The stomach is otherwise unremarkable. The spleen and right adrenal gland are unremarkable. There is a nonspecific 1.3 cm left adrenal nodule whi ch is not definitively characterized on this single phase examination. There a re involutional changes of the pancreas which is otherwise unremarkable. The kidneys are normal in size and location and enhance symmetrically. There is a 6.1 x 6.4 cm cyst identified within the left kidney. There is a 3 mm nonob structing stone identified within the interpolar region of the right kidney. T here is a 4 mm nonobstructive stone versus parenchymal calcification identifie d within the inferior pole of the left kidney. Additionally, there is a 7 mm s tone identified within the right renal pelvis resulting in mild dilatation of the renal pelvis without evidence for true intrarenal hydronephrosis. No left- sided hydronephrosis is present. The left ureter is normal course and caliber. A Garza catheter is identified with retention balloon inflated within the prosthetic urethra. There is moderate distention of the urinary bladder with small amount of air noted within the nondependent portion, likely related to catheterization. The prostate appears prominent. The abdominal aorta is tor tuous but normal in caliber with atherosclerotic calcifications within its cou rse and branch vessels. An IVC filter is identified in place. Please note evaluation the bowel is limited without the use of enteric contrast material. The visualized loops of small and large bowel demonstrate no evidence of obst ruction or inflammation. Moderate stool burden noted within the sigmoid colon and rectum, recommend correlation for constipation. There is no ascites or int raperitoneal free air. No abnormally enlarged lymph nodes are identified withi n the abdomen or pelvis. 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 There are also postsurgical ch anges from right hip arthroplasty with heterotopic calcifications noted adjace nt to the right greater trochanter. Vertebral augmentation changes are noted a t T10 and T11. There is a severe compression deformity of the T12 vertebral brandon dy of unknown chronicity. Multilevel degenerative changes are noted within the thoracolumbar spine. No osseous destructive process is appreciated. I MPRESSION: 1. Malpositioned Garza catheter with retention balloon inflated at the level of the prosthetic urethra. Recommend repositioning/advancing by s anali several centimeters. 2. 7 mm stone noted within the right renal pe lvis resulting in mild dilatation of the right renal pelvis. No intrarenal hyd ronephrosis is present. Additional subcentimeter bilateral nonobstructing ston es identified as detailed above. 3. Left renal cyst. 4. Mild dilatatio n of the central bile ducts and common bile duct which is likely related to re servoir phenomenon status post cholecystectomy. 5. Moderate sized hiatal he rnia. 6. T12 compression deformity of unknown chronicity. Signed by: Joselito Cooper MD on 02/05/2020 1:13 PM Dictated By: CATRINA COOPER MD El ectronically Signed By: CATRINA COOPER MD on 02/05/201312 Transcribed By: CHARLY Kumar on 02/05/201312 COPY TO: MARCIANO HOWE MD Serum or plasma creatine kinase measurement (enzymatic activity/volume)2020-02-05 12:56:00* Test Item Value Reference Range Interpretation Comments Creatine Kinase (test code = 2157-6) 21 30-200 [facility] creatine kinase MB measurement (mass/volume)2020-02-05 12:56:00* Test Item Value Reference Range Interpretation Comments Creatine Kinase MB (test code = 57681-3) 1.90 0-5.0 [facility] HospitalTroponin I measurement by highly sensitive enzyme bpkqukbenoc4286-60-18 12:56:00* Test Item Value Reference Range Interpretation Comments Troponin I (test code = 70341-4) 0.002 0-0.300 [facility] total bilirubin measurement (mass/volume)2020-02-05 04:55:00* Test Item Value Reference Range Interpretation Comments Total Bilirubin (test code = 1975-2) 0.5 0.2-1.2 [facility] HospitalFluoroscopic procedure less than one hour gwjwpelg7147-03-89 04:55:00* Test Item Value Reference Range Interpretation Comments Aspartate Amino Transf (AST/SGOT) (test code = Aspartate Amino Transf (AST/SGOT)) 13 5-34 [facility] alanine aminotransferase measurement (enzymatic activity/volume)2020-02-05 04:55:00* Test Item Value Reference Range Interpretation Comments Alanine Aminotransferase (ALT/SGPT) (test code = 1742-6) 11 0-55 [facility] protein measurement (mass/volume)2020-02-05 04:55:00* Test Item Value Reference Range Interpretation Comments Total Protein (test code = 2885-2) 5.1 6.5-8.1 [facility] albumin measurement (mass/volume)2020-02-05 04:55:00* Test Item Value Reference Range Interpretation Comments Albumin (test code = 1751-7) 2.6 3.5-5.0 [facility] HospitalPlasma globulin measurement (mass/volume) 2020-02-05 04:55:00* Test Item Value Reference Range Interpretation Comments Globulin (test code = 95142-0) 2.5 2.3-3.5 [facility] albumin/globulin mass hxmfl3901-14-09 04:55:00* Test Item Value Reference Range Interpretation Comments Albumin/Globulin Ratio (test code = 1759-0) 1.0 0.8-2.0 [facility] alkaline phosphatase measurement (enzymatic activity/volume)2020-02-05 04:55:00* Test Item Value Reference Range Interpretation Comments Alkaline Phosphatase (test code = 6768-6) 44 40-150 [facility]CT BRAIN [id number] 17:05:00 [facility] [address] [place] [address] Patient Name: DALE DSOUZA MR #: [id number] : 1930 Age/Sex: 89/M Req #: [id number] Adm Physician: Ordered by: GENIE SKAGGS MD Report #: [id number] Location: ER Room/Bed: Procedure: [id number] CT/CT BRAIN WO Exam Date: 02/04/20 Exam Time: 1630 REPORT STATUS: Signed History:Altered mental status Comparison studies: None Technique: Axial images were obtai carlos from the skull base to the vertex. Coronal and sagittal images reconstruct ed from the axial data. Dose modulation, iterative reconstruction, and/or weig ht based adjustment of the mA/kV was utilized to reduce the radiation dose to as low as reasonably achievable. Intravenous contrast: None Findin gs: Scalp/skull: No abnormalities. Extra-axial spaces: No masses . No fluid collections. Brain sulci: Moderately prominent. Ventricles: M oderate compensatory dilatation. No hydrocephalus. Parenchyma: Confluent hypodensities in the supratentorial white matter are small vessel ischemic ch anges. No masses, hemorrhage, acute or chronic cortical vascular insults. Sellar/suprasellar region: No abnormalities. Craniocervical junction: Patent foramen magnum. No Chiari one malformation. Incidental findings: Athero sclerotic calcifications in the carotid siphons . Bilateral lens implants Impression: No acute abnormalities. Chronic findings: 1. Moderate generalized volume loss. 2. Moderate supratentorial white matter small vessel ischemic changes. Signed by: Dr. Isac Washington M.D. on 02/04/2020 5:0 6 PM Dictated By: ISAC WASHINGTON MD, MD 05 Transcribed By: BENNIE on 02/04/201705 COPY TO: GENIE SKAGGS MD CHEST SINGLE (PORTABLE)2020-02-04 17:01:00 [place] [address] Patient Name: DALE DSOUZA MR #: [id number] : 1930 Age/Sex: 89/M Req #: [id number] Adm Physician: Ordered by: GENIE SKAGGS MD Report #: [id number] Location: ER Room/Bed: Procedure: [id number] DX/CHEST SIN GLE (PORTABLE) Exam Date: 02/04/20 Exam Time: 1630 REPORT STATUS: Signed EXAMINATION : CHEST SINGLE (PORTABLE) INDICATION: Confusion, urinary tract infecti on COMPARISON: None FINDINGS: LINES/TUBES:None LUNGS:Th e lungs are well-inflated. No focal consolidation or pulmonary edema. Bibasila r linear opacities, likely subsegmental atelectasis. PLEURA:No pleural effu ronnell or pneumothorax. MEDIASTINUM:The cardiomediastinal silhouette appears normal in size and shape. Atherosclerotic calcifications of the thoracic aorta . BONES/SOFT TISSUES:No acute osseous injury. Right shoulder arthroplasty hardware. ABDOMEN:No free air under the diaphragm. IMPRESSION: Bibasilar subsegmental atelectasis. No focal pneumonia or pulmonary edema. Signed by: Ruddy Mejia MD on 02/04/2020 5:02 PM Dictated By: RUDDY MEJIA MD 01 Transcribed By: WINNIE RAN on 02/04/201701 COPY TO: GENEI SKAGGS MD Fluoroscopic procedure less than one hour [id number] 16:45:00* Test Item Value Reference Range Interpretation Comments Coronavirus (PCR) (test code = Coronavirus (PCR)) NOT DETECTED NOTD ETECTED SARS-COV-2 (COVID19), HIGHRISK, RT-PCRNegative results do not preclude SARS-CoV- 2 infection and should not be used as the sole basis for patient management deci sions. Negative results must be combined with clinical observations, patient his tory, and epidemiological information. Optimum specimen types and timing for pea k viral levels during infections caused by SARS-CoV-2 have not been determined. Collection of multiple specimens ot types of specimens may be necessary to detec t virus. Improper specimen collection and handling, sequence variability under p rimers/probes, or organism present below the limit of detection may lead to fals e negative results. Positive and negative predictive values of testing are highl y dependent on prevalance. False negative test results are more likely when prev alence is high.The expected result is negative (not detected).The SARS-CoV-2 jaylon t is intended for the qualitative detection of nucleic acid from SARS-CoV-2 in n asopharyngeal and oropharyngeal swab samples from patients who meet COVID-19 cli nical and or epidemiological criteria. For lower respiratory tract specimens, th e assay is submitted for authoriztion by FDA under an Emergency Use Authorizatio n (EUA). Testing methodology is real time RT-PCR. If received as separate collec tion devices, nasopharygeal and oropharyngeal specimens are combined for analysi s. Additional specimens may be split to a separate accession for analysi and rep orting as this test includes a single unit of service.Test results must be corre lated with clinical presentation and evaluated in the context of other laborator y and epidemiologic data. Test performance can be affected because the epidemiol ogy and clinical spectrum of infection caused by SARS-CoV-2 is not fully known. For example, the optimum types of specimens to collect and when during the cours e of infection these specimens are most likely to contain detectable viral RNA m ay not be known.This test has not been Food and Drug Administration (FDA) cleare d or approved and has been authorized by FDA under an Emergency Use Authorizatio n (EUA). The test is only authorized for the duration of the declaration that ci rcumstances exist justifying the authorization of emergency use of in vitro diag nostic tests for detection and/or diagnosis of SARS-CoV-2 under section 564(b) o f the Act, 21 U.S.C. section 360bbb-3(b)(1), unless the authorization is termina radha or revoked sooner. [facility] are certified under the C linical Laboratory Improvement Amendments of 1988 (CLIA), 42 U.S.C. section 263a , to perform high complexity tests.Testing performed by [facility] [id number] [place], [place] [phone] Director: James Pritchard M.D.CLIA # [id number] [facility] Prothrombin time (PT) in platelet poor plasma by coagulation [id number] 16:15:00* Test Item Value Reference Range Interpretation Comments Prothrombin Time (test code = 5902-2) 12.7 11.9-14.5 [facility] Platelet poor plasma by Coagulation [id number] 16:15:00* Test Item Value Reference Range Interpretation Comments Prothromb Time International Ratio (test code = 6301-6) 0.90 Oral Anticoagulant Therapy INR Values:1. Low Intensity Therapy 1.5 - 2.02 . Moderate Intensity Therapy 2.0 - 3.03. High Intensity Therapy(1) 2.5 - 3. 54. High Intensity Therapy(2) 3.0 - 4.05. Panic Value INR > 5.0 [facility] partial thromboplastin time (aPTT) in platelet poor plasma by coagulation [id number] 16:15:00* Test Item Value Reference Range Interpretation Comments Activated Partial Thromboplast Time (test code = 57543-4) 22.8 23.8-35.5 NO CLOT DETECTED [facility] color [id number] 16:15:00* Test Item Value Reference Range Interpretation Comments Urine Color (test code = 5778-6) YELLOW YELLOW [facility] [id number] 16:15:00* Test Item Value Reference Range Interpretation Comments Urine Clarity (test code = 25937-3) SL CLOUDY [facility] by Test strip 2020-02-04 16:15:00* Test Item Value Reference Range Interpretation Comments Urine Specific [place] (test code = 5811-5) 1.025 1.010-1.02 5 [facility] pH measurement by automated test [id number] 16:15:00* Test Item Value Reference Range Interpretation Comments Urine pH (test code = 01695-2) 7 5-7 [facility] leukocyte esterase detection by [id number] 16:15:00* Test Item Value Reference Range Interpretation Comments Urine Leukocyte Esterase (test code = 5799-2) LARGE NEGATIVE [facility] nitrite [id number] 16:15:00* Test Item Value Reference Range Interpretation Comments Urine Nitrite (test code = 37637-4) POSITIVE NEGATIVE [facility] protein measurement by test strip (mass/volume)2020-02-04 16:15:00* Test Item Value Reference Range Interpretation Comments Urine Protein (test code = 5804-0) TRACE NEGATIVE [facility] glucose [id number] 16:15:00* Test Item Value Reference Range Interpretation Comments Urine Glucose (UA) (test code = 2349-9) NEGATIVE NEGATIVE [facility] ketones detection by automated test [id number] 16:15:00* Test Item Value Reference Range Interpretation Comments Urine Ketones (test code = 60293-9) NEGATIVE NEGATIVE [facility] urobilinogen measurement by test strip (mass/volume)2020-02-04 16:15:00* Test Item Value Reference Range Interpretation Comments Urine Urobilinogen (test code = 48088-0) 0.2 0.2-1 [facility] total bilirubin measurement (mass/volume)2020-02-04 16:15:00* Test Item Value Reference Range Interpretation Comments Urine Bilirubin (test code = 1978-6) NEGATIVE NEGATIVE [facility] erythrocytes [id number] 16:15:00* Test Item Value Reference Range Interpretation Comments Urine Blood (test code = 11037-3) MODERATE NEGATIVE [facility] HospitalAutomated urine sediment leukocyte count by microscopy (number/high power field)2020-02-04 16:15:00* Test Item Value Reference Range Interpretation Comments Urine WBC (test code = 5821-4) >50 0-5 [facility] HospitalErythrocytes detection in urine sediment by light jwpmvrdpsb1411-64-79 16:15:00* Test Item Value Reference Range Interpretation Comments Urine RBC (test code = 93512-3) 21-50 0-5 [facility] HospitalBacteria detection in urine sediment by light snfhnbuqxm3890-92-60 16:15:00* Test Item Value Reference Range Interpretation Comments Urine Bacteria (test code = 96881-5) MANY NONE [facility] HospitalEpithelial cells detection in urine sediment by light mcnvsjyxqd8290-54-03 16:15:00* Test Item Value Reference Range Interpretation Comments Urine Epithelial Cells (test code = 98808-6) FEW NONE [facility] HospitalBlood [id number] 16:15:00* Test Item Value Reference Range Interpretation Comments Blood Culture (test code = 67842606) NO GROWTH AFTER 5 DAYS, FINAL REPORT [facility] HospitalTOTAL T3 - [id number] 12:07:00* Test Item Value Reference Range Interpretation Comments TOTAL T3 - ICMA (test code = T3) 93 ng/dL 71-180 Performed At: [facility] [address] [id number] Kyle L MD Ph:[phone] T4 [id number] 18:20:00* Test Item Value Reference Range Interpretation Comments T4 FREE (test code = T4F) 1.2 ng/dL 0.77-1.61 N CBC W/AUTO [id number] 08:10:00* Test Item Value Reference Range Interpretation Comments WHITE BLOOD CELL (test code = WBC) 6.27 x10 3/uL 4.5-11.0 N RED BLOOD CELL (test code = RBC) 3.69 x10 6/uL 4.00-5.60 L HEMOGLOBIN (test code = HGB) 10.9 g/dL 12.5-16.9 L HEMATOCRIT (test code = HCT) 34.4 % 37.5-50.7 L MEAN CELL VOLUME (test code = MCV) 93.2 fL 81.0-99.0 N MEAN CELL HGB (test code = MCH) 29.5 pg 27.0-33.0 N MEAN CELL HGB CONCETRATION (test code = MCHC) 31.7 g/dL 33.0-37. 0 L RED CELL DISTRIBUTION WIDTH CV (test code = RDW) 13.8 % 11.5- 14.5 N RED CELL DISTRIBUTION WIDTH SD (test code = RDW-SD) 46.8 fL 37 .0-54.0 N PLATELET COUNT (test code = PLT) 145 x10 3/uL 150-400 L MEAN PLATELET VOLUME (test code = MPV) 9.1 fL 7.0-9.0 H NEUTROPHIL % (test code = NT%) 58.4 % 56.0-77.0 N IMMATURE GRANULOCYTE % (test code = IG%) 0.6 % 0.0-2.0 N LYMPHOCYTE % (test code = LY%) 25.2 % 14.0-32.0 N MONOCYTE % (test code = MO%) 12.9 % 4.8-9.0 H EOSINOPHIL % (test code = EO%) 2.6 % 0.3-3.7 N BASOPHIL % (test code = BA%) 0.3 % 0.0-2.0 N NUCLEATED RBC % (test code = NRBC%) 0.0 % 0-0 N NEUTROPHIL # (test code = NT#) 3.66 x10 3/uL 2.0-7.6 N IMMATURE GRANULOCYTE # (test code = IG#) 0.04 x10 3/uL 0.00-0.03 H LYMPHOCYTE # (test code = LY#) 1.58 x10 3/uL 1.0-3.8 N MONOCYTE # (test code = MO#) 0.81 x10 3/uL 0.1-0.8 H EOSINOPHIL # (test code = EO#) 0.16 x10 3/uL 0.0-0.2 N BASOPHIL # (test code = BA#) 0.02 x10 3/uL 0.0-0.2 N NUCLEATED RBC # (test code = NRBC#) 0.00 x10 3/uL 0.0-0.1 N MANUAL DIFF REQUIRED (test code = MDIFF) NO BASIC METABOLIC [id number] 08:02:00* Test Item Value Reference Range Interpretation Comments SODIUM (test code = NA) 140 mEq/L 134-147 N POTASSIUM (test code = K) 4.1 mEq/L 3.4-5.0 N CHLORIDE (test code = CL) 111 mEq/L 100-108 H CARBON DIOXIDE (test code = CO2) 24 mEq/L 21-33 N ANION GAP (test code = GAP) 9 0-20 N GLUCOSE (test code = GLU) 90 mg/dL 70-110 N BLOOD UREA NITROGEN (test code = BUN) 13 mg/dL 7-18 N GLOMERULAR FILTRATION RATE (test code = GFR) 127.4 70-80 H Units of measure = ml/min/1.73 m2 CREATININE (test code = CREAT) 0.6 mg/dL 0.6-1.3 N CALCIUM (test code = CA) 9.5 mg/dL 8.0-10.5 N [id number] 08:02:00* Test Item Value Reference Range Interpretation Comments PHOSPHOROUS (test code = PHOS) 1.9 MG/DL 2.5-4.9 L PROCALCITONIN (PCT)2019-12-18 09:40:00* Test Item Value Reference Range Interpretation Comments PROCALCITONIN (PCT) (test code = PROCAL) 0.26 ng/mL 0.00-0.05 H PROCALCITONIN (PCT) NORMAL RANGE (ADULT): <0.05 NG/ML. * a concentration <0.5 ng/mL represents a low risk of severe sepsis and/or septic shock.* a concentration >2 ng/mL represents a high risk of severe sepsis and/or septic shock.Nevertheless, concentrations <0.5 ng/mL do not exclude aninfection, on account of localized infections (withoutsystemic signs) which can be associated with such lowconcentrations, or a systemic infection in its initialstages (< 6 hours). Furthermore, increased procalcitonincan occur without infection. PCT concentrations between 0.5and 2.0 ng/mL should be interpreted taking into account thepatient's history. It is recommended to retest PCT within6-24 hours if any concentrations <2 ng/mL are obtained. BASIC METABOLIC [id number] 08:59:00* Test Item Value Reference Range Interpretation Comments SODIUM (test code = NA) 142 mEq/L 134-147 N POTASSIUM (test code = K) 4.0 mEq/L 3.4-5.0 N CHLORIDE (test code = CL) 112 mEq/L 100-108 H CARBON DIOXIDE (test code = CO2) 24 mEq/L 21-33 N ANION GAP (test code = GAP) 10 0-20 N GLUCOSE (test code = GLU) 92 mg/dL 70-110 N BLOOD UREA NITROGEN (test code = BUN) 14 mg/dL 7-18 GLOMERULAR FILTRATION RATE (test code = GFR) 106.7 70-80 H Units of measure = ml/min/1.73 m2 CREATININE (test code = CREAT) 0.7 mg/dL 0.6-1.3 CALCIUM (test code = CA) 8.5 mg/dL 8.0-10.5 N CBC W/AUTO [id number] 08:53:00* Test Item Value Reference Range Interpretation Comments WHITE BLOOD CELL (test code = WBC) 9.28 x10 3/uL 4.5-11.0 N RED BLOOD CELL (test code = RBC) 3.73 x10 6/uL 4.00-5.60 L HEMOGLOBIN (test code = HGB) 10.9 g/dL 12.5-16.9 L HEMATOCRIT (test code = HCT) 35.1 % 37.5-50.7 L MEAN CELL VOLUME (test code = MCV) 94.1 fL 81.0-99.0 N MEAN CELL HGB (test code = MCH) 29.2 pg 27.0-33.0 N MEAN CELL HGB CONCETRATION (test code = MCHC) 31.1 g/dL 33.0-37. 0 L RED CELL DISTRIBUTION WIDTH CV (test code = RDW) 14.2 % 11.5- 14.5 N RED CELL DISTRIBUTION WIDTH SD (test code = RDW-SD) 49.4 fL 37 .0-54.0 N PLATELET COUNT (test code = PLT) 112 x10 3/uL 150-400 L MEAN PLATELET VOLUME (test code = MPV) 9.3 fL 7.0-9.0 H NEUTROPHIL % (test code = NT%) 68.6 % 56.0-77.0 N IMMATURE GRANULOCYTE % (test code = IG%) 0.6 % 0.0-2.0 N LYMPHOCYTE % (test code = LY%) 19.8 % 14.0-32.0 N MONOCYTE % (test code = MO%) 9.4 % 4.8-9.0 H EOSINOPHIL % (test code = EO%) 1.4 % 0.3-3.7 N BASOPHIL % (test code = BA%) 0.2 % 0.0-2.0 N NUCLEATED RBC % (test code = NRBC%) 0.0 % 0-0 N NEUTROPHIL # (test code = NT#) 6.36 x10 3/uL 2.0-7.6 N IMMATURE GRANULOCYTE # (test code = IG#) 0.06 x10 3/uL 0.00-0.03 H LYMPHOCYTE # (test code = LY#) 1.84 x10 3/uL 1.0-3.8 N MONOCYTE # (test code = MO#) 0.87 x10 3/uL 0.1-0.8 H EOSINOPHIL # (test code = EO#) 0.13 x10 3/uL 0.0-0.2 N BASOPHIL # (test code = BA#) 0.02 x10 3/uL 0.0-0.2 N NUCLEATED RBC # (test code = NRBC#) 0.00 x10 3/uL 0.0-0.1 N MANUAL DIFF REQUIRED (test code = MDIFF) NO PROCALCITONIN (PCT)2019-12-17 12:15:00* Test Item Value Reference Range Interpretation Comments PROCALCITONIN (PCT) (test code = PROCAL) 0.40 ng/mL 0.00-0.05 H PROCALCITONIN (PCT) NORMAL RANGE (ADULT): <0.05 NG/ML. * a concentration <0.5 ng/mL represents a low risk of severe sepsis and/or septic shock.* a concentration >2 ng/mL represents a high risk of severe sepsis and/or septic shock.Nevertheless, concentrations <0.5 ng/mL do not exclude aninfection, on account of localized infections (withoutsystemic signs) which can be associated with such lowconcentrations, or a systemic infection in its initialstages (< 6 hours). Furthermore, increased procalcitonincan occur without infection. PCT concentrations between 0.5and 2.0 ng/mL should be interpreted taking into account thepatient's history. It is recommended to retest PCT within6-24 hours if any concentrations <2 ng/mL are obtained. Novel Coronavirus 2019 [id number] 07:49:00* Test Item Value Reference Range Interpretation Comments Novel Coronavirus 2019 Inhouse (test code = COVNONPUI) Negative Negative [id number] 05:42:00* Test Item Value Reference Range Interpretation Comments PHOSPHOROUS (test code = PHOS) 1.7 MG/DL 2.5-4.9 L [id number] 05:42:00* Test Item Value Reference Range Interpretation Comments MAGNESIUM (test code = MAG) 2.50 mg/dL 1.8-2.4 H PROCALCITONIN (PCT)2019-12-16 20:29:00* Test Item Value Reference Range Interpretation Comments PROCALCITONIN (PCT) (test code = PROCAL) 0.47 ng/mL 0.00-0.05 H PROCALCITONIN (PCT) NORMAL RANGE (ADULT): <0.05 NG/ML. * a concentration <0.5 ng/mL represents a low risk of severe sepsis and/or septic shock.* a concentration >2 ng/mL represents a high risk of severe sepsis and/or septic shock.Nevertheless, concentrations <0.5 ng/mL do not exclude aninfection, on account of localized infections (withoutsystemic signs) which can be associated with such lowconcentrations, or a systemic infection in its initialstages (< 6 hours). Furthermore, increased procalcitonincan occur without infection. PCT concentrations between 0.5and 2.0 ng/mL should be interpreted taking into account thepatient's history. It is recommended to retest PCT within6-24 hours if any concentrations <2 ng/mL are obtained. [id number] 17:56:00* Test Item Value Reference Range Interpretation Comments MAGNESIUM (test code = MAG) 1.20 mg/dL 1.8-2.4 L TSH REFLEX TO [id number] 17:56:00* Test Item Value Reference Range Interpretation Comments TSH REFLEX TO FT4 (test code = TSHREFLEX) 0.30 IU/mL 0.42-5.47 L LACTIC [id number] 17:50:00* Test Item Value Reference Range Interpretation Comments LACTIC ACID (test code = LACT) 1.3 mmol/L 0.4-1.9 N HGBA1C%2019-12-16 17:48:00* Test Item Value Reference Range Interpretation Comments HGBA1C% (test code = HGBA1C%) 6.7 %A1C 4.8-6.0 H LACTIC [id number] 12:20:00* Test Item Value Reference Range Interpretation Comments LACTIC ACID (test code = LACT) 2.0 mmol/L 0.4-1.9 H BASIC METABOLIC [id number] 12:20:00* Test Item Value Reference Range Interpretation Comments SODIUM (test code = NA) 140 mEq/L 134-147 N POTASSIUM (test code = K) 4.4 mEq/L 3.4-5.0 N CHLORIDE (test code = CL) 106 mEq/L 100-108 N CARBON DIOXIDE (test code = CO2) 30 mEq/L 21-33 N ANION GAP (test code = GAP) 8 0-20 N GLUCOSE (test code = GLU) 119 mg/dL 70-110 H BLOOD UREA NITROGEN (test code = BUN) 23 mg/dL 7-18 H GLOMERULAR FILTRATION RATE (test code = GFR) 44.3 70-80 L Units of measure = ml/min/1.73 m2 CREATININE (test code = CREAT) 1.5 mg/dL 0.6-1.3 H CALCIUM (test code = CA) 10.2 mg/dL 8.0-10.5 N HEPATIC FUNCTION [id number] 12:20:00* Test Item Value Reference Range Interpretation Comments TOTAL PROTEIN (test code = PROT) 6.6 g/dL 6.4-8.2 N ALBUMIN (test code = ALB) 3.10 g/dL 3.4-5.0 L BILIRUBIN TOTAL (test code = BILT) 0.9 MG/DL <1.5 N BILIRUBIN DIRECT (test code = BILD) 0.30 MG/DL 0.0-0.30 BILIRUBIN INDIRECT (test code = BILIND) 0.60 MG/DL SGOT/AST (test code = AST) 18 IUnit/L 15-37 N SGPT/ALT (test code = ALT) 23 IUnit/L 15-65 N ALKALINE PHOSPHATASE TOTAL (test code = ALKP) 52 IUnit/L 20-125 N [id number] 12:20:00* Test Item Value Reference Range Interpretation Comments TROPONIN-I (test code = TROPI) < 0.015 ng/mL 0.000-0.045 N Negative: <= 0.045 Positive: >= 0.046 Correlation with serial results, other cardiac markers andclinical findings is necessary to determine the clinicalsignificance of this result. Results using different methodologies should not be comparedto one another as quantitative results may vary by method. UA RFLX MICR CULT IF [id number] 12:06:00* Test Item Value Reference Range Interpretation Comments UA COLOR (test code = COLU) YELLOW YEL/STRAW UA APPEARANCE (test code = APPU) CLEAR CLEAR UA GLUCOSE DIPSTICK (test code = DGLUU) NEGATIVE NEGATIVE UA BILIRUBIN DIPSTICK (test code = BILU) NEGATIVE NEGATIVE UA KETONE DIPSTICK (test code = KETU) NEGATIVE NEGATIVE UA SPECIFIC GRAVITY (test code = SGU) 1.014 1.005-1.030 N UA BLOOD DIPSTICK (test code = HENOK) 2+ NEGATIVE A UA PH DIPSTICK (test code = JILLIAN) 6.0 5.0-7.0 N UA PROTEIN DIPSTICK (test code = PROU) NEGATIVE NEGATIVE UA UROBILINIOGEN DIPSTICK (test code = URO) 0.2 mg/dL 0.2-1.0 UA NITRITE DIPSTICK (test code = KISHOR) NEGATIVE NEGATIVE UA LEUKOCYTE ESTERASE DIPSTICK (test code = LEUU) NEGATIVE NEGA TIVE UA WBC (test code = WBCU) 4-9 WBC/HPF 0-3 A UA RBC (test code = RBCU) 21-50 RBC/HPF 0-3 UA WBC NO REFLEX (test code = WBCUCL) 4-9 WBC/HPF 0-3 A UA BACTERIA (test code = BACU) NONE SEEN /HPF NONE SEEN UA SQUAMOUS CELLS (test code = SQU) NONE SEEN /HPF NONE SEEN Indication for culture: Sev. Sepsis-no other srcSpecimen Description: CLEAN CATCHCBC W/AUTO [id number] 12:00:00* Test Item Value Reference Range Interpretation Comments WHITE BLOOD CELL (test code = WBC) 12.98 x10 3/uL 4.5-11.0 H RED BLOOD CELL (test code = RBC) 4.89 x10 6/uL 4.00-5.60 N HEMOGLOBIN (test code = HGB) 14.4 g/dL 12.5-16.9 N HEMATOCRIT (test code = HCT) 45.7 % 37.5-50.7 N MEAN CELL VOLUME (test code = MCV) 93.5 fL 81.0-99.0 N MEAN CELL HGB (test code = MCH) 29.4 pg 27.0-33.0 N MEAN CELL HGB CONCETRATION (test code = MCHC) 31.5 g/dL 33.0-37. 0 L RED CELL DISTRIBUTION WIDTH CV (test code = RDW) 13.8 % 11.5- 14.5 N RED CELL DISTRIBUTION WIDTH SD (test code = RDW-SD) 47.3 fL 37 .0-54.0 N PLATELET COUNT (test code = PLT) 138 x10 3/uL 150-400 L MEAN PLATELET VOLUME (test code = MPV) 9.1 fL 7.0-9.0 H NEUTROPHIL % (test code = NT%) 83.9 % 56.0-77.0 H IMMATURE GRANULOCYTE % (test code = IG%) 0.3 % 0.0-2.0 N LYMPHOCYTE % (test code = LY%) 8.7 % 14.0-32.0 L MONOCYTE % (test code = MO%) 6.7 % 4.8-9.0 N EOSINOPHIL % (test code = EO%) 0.2 % 0.3-3.7 L BASOPHIL % (test code = BA%) 0.2 % 0.0-2.0 N NUCLEATED RBC % (test code = NRBC%) 0.0 % 0-0 N NEUTROPHIL # (test code = NT#) 10.90 x10 3/uL 2.0-7.6 H IMMATURE GRANULOCYTE # (test code = IG#) 0.04 x10 3/uL 0.00-0.03 H LYMPHOCYTE # (test code = LY#) 1.13 x10 3/uL 1.0-3.8 N MONOCYTE # (test code = MO#) 0.87 x10 3/uL 0.1-0.8 H EOSINOPHIL # (test code = EO#) 0.02 x10 3/uL 0.0-0.2 N BASOPHIL # (test code = BA#) 0.02 x10 3/uL 0.0-0.2 N NUCLEATED RBC # (test code = NRBC#) 0.00 x10 3/uL 0.0-0.1 N MANUAL DIFF REQUIRED (test code = MDIFF) NO - XR CHEST 1 [id number] 11:09:00 FAX: Erik Cardenas MD [phone] [place]: St: PRE Name: [place] AGUAYODALE [facility] : [birth year] Age/S: 88/M [address] [place] [address] Unit #: [id number] Loc: [place] [address] Phys: Jean-Pierre Johnson MD Acct: [id number] Dis Date: Status: PRE ER PHONE #: [phone] Exam Date: 12/16/2019 105 FAX #: [phone] Reason: fever, cough EXAMS: CPT CODE: [id number] XR CHEST 1 V 52100 EXAM: Single view AP chest. EXAM DATE: 12/16/2019 at 1054 hours CLINICAL HISTORY: fe angela, cough COMPARISON: January 11, 2017 at 2311 hours Heart size appears enlarged but this may be in part secondary to pa tient positioning and patient rotation. Atherosclerotic calcifications and tortuosity of the intrathoracic aorta is identified. Increased lung markings in the right upper lung may be secondary to patient positioning. The lower right lung is unremarkable. There is opacity in the retrocardi ac region and probable small pleural effusion. The left upper lung is unr emarkable. Imaged osseous structures demonstrate vertebroplasty. IMPRESSION: 1. Probable cardiomegaly even when accounting for pa tient positioning 2. Opacity in the left lower lung/retrocardiac region may represent atelectasis/infiltrate/effusion. Elec tronically Signed by Carmen Cutler on 12/15 at 1109 Reported and signed by: Paul Cutler M.D. CC: Erik Rogel MD Technologist: RT Redd(R) Trnscrd Date/Time/By: 12/16/2019 (1109) : By: Ashley Orig Print D/T: S: 12/16/2019 (0505) PAGE 1 Signed Report
--- OUTSIDE RECORDS SUMMARY | 2020-03-12 23:42 | XMS REPORT | Summary of Care ---
Author Author [facility] - Health Organization [facility] - Health Address Unknown Phone Unavailable Care Team Providers Care Trade Show Coordinator Name Role Phone Erik Rogel PCP Reason for Referral * (Routine) Referred By Contact Referred To Contact Status Reason Specialty Diagnoses / Procedures Joni Mcallister MD [address] [place] [phone] New Request NS-NEUROLOGICAL Diagnoses SURGERY Acute cystitis without hematuria P rocedures Discharge Follow-Up: Specialty Service NS-NEUROLOGICAL SURGERY; 2 Weeks * (Routine) Referred By Contact Referred To Contact Status Reason Specialty Diagnoses / Procedures Albert Monahan MD [address] [address] New Request PN-NEUROLOGY Diagnoses Acute cystitis without hematuria P rocedures Discharge Follow-Up: Specialty Service PN-NEUROLOGY ; 1 Week * (Routine) Referred By Contact Referred To Contact Status Reason Specialty Diagnoses / Procedures Achuo, Dennis, WAX BLEACHER [address] [place] [address] [address] [place] [phone] New Request Diagnostic Diagnoses Radiology Lumbar back pain P rocedures IR SPINAL ASPIRATION NUCLEUS PULPOSUS CALVIN OTHER CONSULT INTERVENTIONAL RADIOLOGY * Radiology Services (STAT) Referred By Contact Referred To Contact Status Reason Specialty Diagnoses / Procedures Yessica Walsh DO [address] [facility] [address] [place] [address] New Request Diagnostic Diagnoses Radiology Weakness P rocedures Chest 2 Views Reason for Visit * Reason Comments Weakness Fall * Auth/Cert Referred By Contact Referred To Contact Status Reason Specialty Diagnoses / Procedures [facility] [address] [place] [address] Emergency Diagnoses Medicine Generalized weakness Encounter Details Care Team Description Date Type Department Yessica Walsh DO [address] [facility] [address] [place] [address] Renee Wild MD [address] [facility] [address] [place] [address] Omar Bullock [place] [address] [facility] [place] [address] [place] [address] [facility] [address] [place] [address] Generalized weakness 10/14/2019 Hospital [facility] Health - Encounter Medicine/Surgery CL C 4B 10/21/2019 [address] [place] [address] Allergies Comments Active Allergy Reactions Severity Noted Date Oxycodone Hcl Hallucination 10/14/2019 s documented as of this encounter (statuses as of 10/21/2019) Medications End Date Status Medication Sig Dispensed [...] for Constipation for up to 30 days. 10/21/2019 Discontinued sulfamethoxazole-trimetho Take 1 tablet 0 prim (BACTRIM) 400-80 mg by mouth 0 per tablet daily. documented as of this encounter (statuses as of 10/21/2019) Active Problems Problem Noted Date Myasthenia gravis 10/15/2019 HTN (hypertension) 10/15/2019 Leg weakness, bilateral 10/15/2019 Lumbar stenosis 10/15/2019 Generalized weakness 10/14/2019 documented as of this encounter (statuses as of 10/21/2019) Social History Date Tobacco Use Types Packs/Day Years Used Never Assessed Sex Assigned at Date Recorded Not on file Industry Job Start Date Occupation Not on file Not on file Not on file Travel End Travel History Travel Start No recent travel history available. documented as of this encounter Last Filed Vital Signs Reading Time Taken Comments Vital Sign 123/57 10/21/2019 11:34 AM CDT Blood Pressure 64 10/21/2019 11:34 AM CDT Pulse 36.9 C (98.5 F) 10/21/2019 11:34 AM CDT Temperature 18 10/21/2019 11:34 AM CDT Respiratory Rate 95% 10/21/2019 11:34 AM CDT Oxygen Saturation - - Inhaled Oxygen Concentration 82.9 kg (182 lb 11.2 oz) 10/17/2019 5:00 AM SHUTTLER Weight 172.7 cm (5' 8") 10/14/2019 3:12 PM SHUTTLER Height 27.78 10/14/2019 3:12 PM SHUTTLER Body Mass Index documented in this encounter Discharge Instructions * Attachments The following attachments cannot be sent through Care Everywhere.* Fall Prevention (Sudanese) * Stroke, Symptoms (Sudanese) * TIA, What Is (Sudanese) documented in this encounter Progress Notes * Giancarlo Martins - 10/21/2019 11:15 AM CDT Seam Presser made follow up with the patient. Patient stated that he is doing ok and going home today. Validated his feeling. Provided supportive and empathic estelae bernardo, offered blessing. Seam Presserdarlyn Khan C DT * Sandra Weiner RN - 10/21/2019 10:51 AM CDT Care Management Discharge Disposition Note (DCDN) 5-2-1 Interventions: Disease specific education;Follow-up appointments;Follow-up phone calls;Intensive medication reconciliation/management;Teach back;Clear dis charge plan -2- Providers: Physician;Auto Service Dispatcher/Label Rewinder;Nurse Light Adjuster -2-1 Patient Capacity Improvements: Avoidance of adverse events/readmission Discharge Plan for ongoing care and services: [facility] (SNF) Is this a new referral: Yes Patient Choice completed for referred services: Yes Discharge location(s): SNF location: Other Other SNF location: [facility] Patient choice completed for referred services: Yes Discussed with patient/patients family involved in decision making: Yes Patient or family caregiver understands, and agrees with discharge plan. Transportation: Wheelchair Van Mental Status: Alert & Oriented to Person,Place & Time Living Arrangement: Home Address of living arrangement: [facility] Funding Resources: Medicare Replacement Nursing informed of discharge plan: Yes Estimated discharge date: 10/21/19 Time: 1330 CM/SW Name & Contact number: Sandra Weiner RN Ph. [phone] The following information has been provided to the facility noted above: reason for the patient discharge or transfer; patients physical and psychosocial sta tus; summary of care, treatment, services provided to patient; and the patient p rogress toward goals. * Albert Monahan MD - 10/21/2019 10:32 AM CDT Progress note Neurology DATE OF SERVICE: 10/21/19 Day of Hospitalization: 7 Neurology follow up: For: Doing better. SUBJECTIVE: HPI: No complaint. Past Medical History: Diagnosis Date Enlarged prostate HTN (hypertension) Myasthenia gravis Sleep apnea History reviewed. No pertinent surgical history. No family history on file. Social History Tobacco Use Smoking status: Not on file Substance Use Topics Alcohol use: Not on file Drug use: Not on file Allergies Allergen Reactions Oxycontin [Oxycodone Hcl] Hallucinations Patient Active Problem List Diagnosis Generalized weakness Myasthenia gravis HTN (hypertension) Leg weakness, bilateral Lumbar stenosis Meds: Current Facility-Administered Medications: meropenem (MERREM) 500 mg in NaCl 0.9% (NS) 100 mL MINI-BAG, 500 mg, IV Pig gyback, Q6H ABX, Achuo, Dennis, WAX BLEACHER, 500 mg at 10/21/19 0856 acetaminophen (TYLENOL) tablet 650 mg, 650 mg, Oral, Q6HPRN, Kaela Person MD amLODIPine (NORVASC) tablet 2.5 mg, 2.5 mg, Oral, DAILY, Rita Hummel, ANITAP , 2.5 mg at 10/21/19 0855 docusate (COLACE) capsule 100 mg, 100 mg, Oral, QDAILYPRN, Kaela Person MD finasteride (PROSCAR) tablet 5 mg, 5 mg, Oral, DAILY, Rita Hummel, ACNP, 5 mg at 10/21/19 0855 gabapentin (NEURONTIN) capsule 300 mg, 300 mg, Oral, QHS, Rita Hummel ACN P, 300 mg at 10/20/19 2046 heparin (porcine) injection 5,000 Units, 5,000 Units, Subcutaneous, Q12H, S Rita coulter, ACNP, 5,000 Units at 10/21/19 0855 hydralAZINE (APRESOLINE) injection 10 mg, 10 mg, Intravenous, Q6HPRN, Rita Weiner, ACNP losartan (COZAAR) tablet 50 mg, 50 mg, Oral, DAILY, Rita Hummel, ACNP, 50 mg at 10/21/19 0855 ondansetron (ZOFRAN (PF)) injection 4 mg, 4 mg, Slow IV Push, Q6HPRN, Kaela Person MD pantoprazole (PROTONIX) EC tablet 40 mg, 40 mg, Oral, DAILY, Rita Hummel, ACNP, 40 mg at 10/21/19 0855 predniSONE (DELTASONE) tablet 10 mg, 10 mg, Oral, QAM WITH BREAKFAST, Rita Weiner, ACNP, 10 mg at 10/21/19 0855 tamsulosin (FLOMAX) capsule 0.4 mg, 0.4 mg, Oral, BID, Rita Hummel, ACNP, 0.4 mg at 10/21/19 0855 Review of Systems: Review of Systems Constitutional: Positive for fatigue. Negative for diaphoresis, fever, unexpecte d weight change, weight gain and weight loss. HENT: Negative for hearing loss, tinnitus, trouble swallowing and voice change. Eyes: Negative for photophobia, pain, discharge and visual disturbance. Respiratory: Negative for cough, choking, chest tightness, shortness of breath a nd wheezing. Breasts: Negative. Cardiovascular: Negative for chest pain, palpitations and leg swelling. Gastrointestinal: Negative for abdominal pain, nausea and vomiting. Genitourinary: Positive for urgency and difficulty urinating. Negative for bladd er incontinence, dysuria, frequency, flank pain and decreased urine volume. Musculoskeletal: Positive for back pain and gait problem. Negative for arthralgi as, joint swelling, myalgias, neck pain and neck stiffness. Skin: Negative for color change, pallor and rash. Neurological: Positive for weakness. Negative for dizziness, tremors, seizures, syncope, facial asymmetry, speech difficulty, light-headedness, numbness and hea daches. Psychiatric/Behavioral: Negative for behavioral problems, confusion, decreased c oncentration, hallucinations and sleep disturbance. The patient is not nervous/a nxious. Hematological: Negative for cold intolerance and heat intolerance. Does not brui se/bleed easily. Endocrine: Negative for cold intolerance, heat intolerance, weight gain and weig ht loss. OBJECTIVE: Vitals: 10/21/19 0000 10/21/19 0400 10/21/19 0641 10/21/19 0728 BP: 131/54 129/65 122/71 Pulse: 62 58 57 59 Resp: 18 16 Temp: 36.9 C (98.4 F) 36.9 C (98.4 F) TempSrc: Oral Axillary SpO2: 95% 93% 94% 99% Weight: Height: Laboratory: Status: Final result Visible to patient: No (Not Released) Component Ref Range & Units 3d ago (10/18/19) 7d ago (10/14/19) 7d ago (10/14/19) NA 135 - 145 mmol/L 137 132Low 133Low K 3.5 - 5.0 mmol/L 4.5 4.4 4.3 CL 98 - 108 mmol/L 107 100 101 CO2 TOTAL 23 - 31 mmol/L 25 24 26 AGAP 2 - 16 5 8 6 BUN 7 - 23 mg/dL 17 23 23 GLUCOSE 70 - 110 mg/dL 95 185High 116High CREATININE 0.60 - 1.25 mg/dL 1.05 1.17 1.19 CALCIUM 8.6 - 10.6 mg/dL 10.0 9.7 10.0 eGFR Calculation (Non-) mL/min/1.73m2 66.8 59.0 57.8 eGFR Calculation () mL/min/1.73m2 81. Spinal fluid Results for MATT CISNEROS ( ) as of 10/21/2019 10:24 Ref. Range 10/17/2019 11:56 10/17/2019 11:57 10/17/2019 12:11 10/18/2019 06:24 10/18/2019 06:25 APPEARANCE Unknown Bloody WBC COUNT Latest Ref Range: 0 - 5 /L 14 (H) RBC COUNT Latest Ref Range: /L 11,000 SEGS% Latest Ref Range: 0 - 7 % 65 (H) LYMPHS% Latest Ref Range: 28 - 96 % 17 (L) MACROPHG% Latest Ref Range: 16 - 56 % 18 #CELS CNTD Unknown 100 CSF: Culture: Negative . CEREBROSPINAL FLUID GLUCOSE Collection Time: 10/17/19 11:56 AM Result Value Ref Range GLU CSF 104 (H) 50 - 80 mg/dL UNSPUN BODY FLUID COLOR Bloody UNSPUN BODY FLUID CLARITY Turbid SPUN BODY FLUID COLOR Light Yellow SPUN BODY FLUID CLARITY Clear Sediment The sediment volume is <0.5 mLs of the total fluid volume of 7 and its color is red. CEREBROSPINAL FLUID PROTEIN Collection Time: 10/17/19 11:56 AM Result Value Ref Range T. PRO CSF 69.0 (H) 15.0 - 45.0 mg/dL UNSPUN BODY FLUID COLOR Bloody UNSPUN BODY FLUID CLARITY Turbid SPUN BODY FLUID COLOR Light Yellow SPUN BODY FLUID CLARITY Clear Sediment The sediment volume is <0.5 mLs of the total fluid volume of 7 and its color is red. CSF CULTURE Collection Time: 10/17/19 11:57 AM Result Value Ref Range Gram stain ASSESSMENT/PLAN: Assessment: 88 year old man with MG, s/p spinal surgery in 2004, admitted this time with inc reasing problem with walking, balance problem and Bladder impairment. Neurologically , he is weaker in his right leg . He walks with walker . Outside MRI showed possible cord compression and Lumbar spinal stenosis . Labs showed UTI . 1. UTI: he has UTI and under medical care. Infection can aggravate MG, but I , b elieve , stable. 2. MG : on steroid , ok to continue. 3. Leg weakness and bladder trouble: rule out as a complication of spinal cord c ompression. 4. Lumbar spinal cord lesion per outside MRI : Neurosurgery saw the film . 5. Fluid built up around the lower lumbar area s/p drainage by IR. Improvement Not as expected. Probably he needs back surgery but will be decided by Neurosur sanjuanita as out patient. 6. High protein in the CSF, probably from bloody tap. R53.1 Weakness (primary encounter diagnosis) D72.829 Leukocytosis, unspecified type M54.5 Lumbar back pain Patient Active Problem List Diagnosis Generalized weakness Myasthenia gravis HTN (hypertension) Leg weakness, bilateral Lumbar stenosis Plan: Ok to send home/ Rehab This is 30 minutes visits. More than half of the time spent with the patient and family discussing problems , going through labs and imaging studies. Time spent in coordinating care with other providers. Note has been written through [employer], has not been revised thoroughly. Some typo mistakes might hapen Call me for any question and concern. Hillary Monahan MD Asst. Professor in Clinical Neurology [facility]. [facility] ( C) [phone]. * Sandra Weiner RN - 10/21/2019 9:12 AM CDT CARE MANAGEMENT NOTE 10/21/19 0912 Insurance auth given to [facility]. PASRR sent. Patient ready to DC today. Sandra Weiner RN, BSN Fishing Vessel Mate- [facility] Department of Care Management O [phone] E [email or web address] [phone] * Genesis Zelaya OT - 10/21/2019 8:49 AM CDT 10/21/2019 0849 OCCUPATIONAL THERAPY NOTE: Patient met all goals set on evaluation. New goals as follows: 1. Patient will perform grooming while standing at sink at Mod I 2. Paitient will perform UE dressing with setup 3. Patient will perform LE dressing with setup 4/ Patient will perform toilet transfer at Mod I 5. Patient will perform toilet hygiene with setup Genesis Zelaya OTR License# [id number] Department of Occupational Therapy [facility]- Mon, Mon, and Monday [phone] * Gurvinder Jay NP - 10/21/2019 8:12 AM CDT XpertMD Progress Note Gurvinder Jay ACNP Subjective: Weakness Patient seen & examined Events reviewed Objective: Vitals: 10/21/19 0000 10/21/19 0400 10/21/19 0641 10/21/19 0728 BP: 131/54 129/65 122/71 Pulse: 62 58 57 59 Resp: 20 18 18 16 Temp: 36.9 C (98.4 F) 36.9 C (98.4 F) TempSrc: Oral Axillary SpO2: 95% 93% 94% 99% Weight: Height: General: awake, alert, no distress HEENT: NC, AT, PERRLA, EOMI, MMM, anicteric sclera Neck: no JVD/lymphadenopathy CV: RRR, no murmurs, rubs, gallops Lungs: clear to auscultation bilaterally Abdomen: soft, NT, ND, (+)BS Skin: no rashes Extremities: no clubbing, cyanosis, edema Neuro: CN 2-12 intact, no focal deficits Psych: oriented x 3, normal affect Labs: No results found for this or any previous visit (from the past 48 hour(s)). Current Facility-Administered Medications: meropenem (MERREM) 500 mg in NaCl 0.9% (NS) 100 mL MINI-BAG, 500 mg, IV Pig gyback, Q6H ABX, Achuo, Dennis, WAX BLEACHER, 500 mg at 10/21/19 0514 acetaminophen (TYLENOL) tablet 650 mg, 650 mg, Oral, Q6HPRN, Kaela Person MD amLODIPine (NORVASC) tablet 2.5 mg, 2.5 mg, Oral, DAILY, Rita Hummel, ACNP , 2.5 mg at 10/20/19955 docusate (COLACE) capsule 100 mg, 100 mg, Oral, QDAILYPRN, Kaela Person MD finasteride (PROSCAR) tablet 5 mg, 5 mg, Oral, DAILY, Rita Hummel, ACNP, 5 mg at 10/20/19955 gabapentin (NEURONTIN) capsule 300 mg, 300 mg, Oral, QHS, Rita Hummel, ACN P, 300 mg at 10/20/192045 heparin (porcine) injection 5,000 Units, 5,000 Units, Subcutaneous, Q12H, S Rita coulter ACNP, 5,000 Units at 10/20/192045 hydralAZINE (APRESOLINE) injection 10 mg, 10 mg, Intravenous, Q6HPRN, Rita Weiner, ACNP losartan (COZAAR) tablet 50 mg, 50 mg, Oral, DAILY, Rita Hummel, ACNP, 50 mg at 10/20/19955 ondansetron (ZOFRAN (PF)) injection 4 mg, 4 mg, Slow IV Push, Q6HPRN, Kaela Person MD pantoprazole (PROTONIX) EC tablet 40 mg, 40 mg, Oral, DAILY, Rita Hummel, ACNP, 40 mg at 10/20/19955 predniSONE (DELTASONE) tablet 10 mg, 10 mg, Oral, QAM WITH BREAKFAST, Mikey toledo, Rita, ACNP, 10 mg at 10/20/19955 tamsulosin (FLOMAX) capsule 0.4 mg, 0.4 mg, Oral, BID, Rita Hummel, ACNP, 0.4 mg at 10/20/192045 Assessment: Matt Cisneros is a 88 year old male admitted with: 1. BLE weakness - Patient with history of lumbar stenosis s/p surgery who presents w ith BLE weakness. Seen by Dr. Monahan and I discussed the case with him. Patient geronimo d recent MRI that showed epidural fluid buildup that is causing impingement. Con sult neurosurgery for eval. 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 Dr. Monahan does not believe current issues are related to this. Continue steroids. 3. Acute Cystitis. - On PO abx. Follow cultures. 4. Leukocytosis. - Likely due to UTI/steroids. - Continue monitoring. 5. HTN - BP controlled. Continue home meds and monitor. 6. DVT ppx - Heparin. DISPO -Await eval by neurosurgery. - Await eval by 10/15 - CSF fluid collection/Weakness - Seen by nsgy and offered patient 3 options and patient elected for IR drainage. Will consult IR for this. - Weakness - Continue PT and OT. Likely SNF from here. - Acute cystitis - Continue abx, cultures pending - DC planning to SNF after procedure 10/16 - Still pending IR intervention this morning when I saw him. Now s/p IR aspiration of 15 cc spinal fluid. Await results. - Acute cystitis - Reviewed urin cx, resistant to Bactrim and ampici llin. Will DC current abx and switch to Augmentin for 7 days. F/u with urology. - Continue PT and OT as tolerated. - DC to SNF soon. 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 Continue PT/OT for weakness. - Acute cystitis - abx changed yesterday. Reviewed UA again, possibi lity of ESBL in the urine. DC Augmentin and start meropenem. Can complete abx at [facility] once accepted. - Debility - PT/OT - DISPO - DC to SNF once approved. 10/18 - S/p IR drainage of spinal fluid collection, stable. - ESBL UTI- Continues on Meropenem day 09/20 - Debility - Continue PT/OT - DISPO - Approved for SNF but not cleared to admit. DC Monday. Can complete Merrem there. 10/19 - Continues on abx for ESBL UTI. - DC pending to SNF once cleared. - CSF fluid without growth to date. 10/21/2019 IV Merrem for ESBL UTI No growth in CSF PT /OT Fall precautions DVT prophylaxis, subcutaneous heparin Pain control as needed GI prophylaxis, PPI Following blood pressure trend, adjust medications as needed Steroid Flomax Discharge planning Further interventions for patient's medical course Dr. Pham was present during patient encounter, examined patient at bedside, all questions answered Plan discussed with patient Gurvinder Jay NP 10/21/2019 8:12 AM * Dennis Clay FNP - 10/20/2019 2:27 PM CDT [facility] PROGRESS NOTE SUBJECTIVE - Seen and examined, no new issues. - Sitting in chair at bedside, no new issues. REVIEW OF SYSTEMS Review of Systems Musculoskeletal: Negative for back pain. Neurological: Positive for weakness. OBJECTIVE Vitals: 10/20/19 0500 10/20/19 0600 10/20/19 0747 10/20/19 1130 BP: 124/56 (!) 150/77 107/57 Pulse: (!) 48 56 (!) 46 76 Resp: 18 18 18 Temp: 36.6 C (97.9 F) 36.3 C (97.4 F) 36.7 C (98 F) TempSrc: Oral Oral Oral SpO2: 94% 96% 94% Weight: Height: PHYSICAL EXAM Physical Exam Constitutional: He is oriented to person, place, and time and well-developed, we ll-nourished, and in no distress. HENT: Head: Normocephalic and atraumatic. Right Ear: External ear normal. Left Ear: External ear normal. Nose: Nose normal. Mouth/Throat: Oropharynx is clear and moist. Eyes: Pupils are equal, round, and reactive to light. Conjunctivae and EOM are n ormal. Neck: Normal range of motion. Neck supple. Cardiovascular: Normal rate, regular rhythm, normal heart sounds and intact dist al pulses. Pulmonary/Chest: Effort normal and breath sounds normal. Abdominal: Soft. Bowel sounds are normal. Neurological: He is alert and oriented to person, place, and time. GCS score is 15. Skin: Skin is warm and dry. Psychiatric: Mood, memory, affect and judgment normal. No results found for this or any previous visit (from the past 24 hour(s)). Current Facility-Administered Medications: meropenem (MERREM) 500 mg in NaCl 0.9% (NS) 100 mL MINI-BAG, 500 mg, IV Pig gyback, Q6H ABX, Achuo, Dennis, WAX BLEACHER, 500 mg at 10/20/19955 acetaminophen (TYLENOL) tablet 650 mg, 650 mg, Oral, Q6HPRN, Kaela Person MD amLODIPine (NORVASC) tablet 2.5 mg, 2.5 mg, Oral, DAILY, Rita Hummel ACNP , 2.5 mg at 10/20/19955 docusate (COLACE) capsule 100 mg, 100 mg, Oral, QDAILYPRN, Kaela Person MD finasteride (PROSCAR) tablet 5 mg, 5 mg, Oral, DAILY, Rita Hummel, ACNP, 5 mg at 10/20/19955 gabapentin (NEURONTIN) capsule 300 mg, 300 mg, Oral, QHS, Rita Hummel ACN P, 300 mg at 10/19/192116 heparin (porcine) injection 5,000 Units, 5,000 Units, Subcutaneous, Q12H, S Rita coulter ACNP, 5,000 Units at 10/20/19955 hydralAZINE (APRESOLINE) injection 10 mg, 10 mg, Intravenous, Q6HPRN, Rita Weiner, ACNP losartan (COZAAR) tablet 50 mg, 50 mg, Oral, DAILY, Rita Hummel, ACNP, 50 mg at 10/20/19955 ondansetron (ZOFRAN (PF)) injection 4 mg, 4 mg, Slow IV Push, Q6HPRN, Kaela Person MD pantoprazole (PROTONIX) EC tablet 40 mg, 40 mg, Oral, DAILY, Rita Hummel, ACNP, 40 mg at 10/20/19955 predniSONE (DELTASONE) tablet 10 mg, 10 mg, Oral, QAM WITH BREAKFAST, Rita Weiner, ACNP, 10 mg at 10/20/19955 tamsulosin (FLOMAX) capsule 0.4 mg, 0.4 mg, Oral, BID, Rita Hummel ACNP, 0.4 mg at 10/20/19955 ASSESSMENT AND PLAN 1. BLE weakness - Patient with history of lumbar stenosis s/p surgery who presents with BLE margret deleon. Seen by Dr. Monahan and I discussed the case with him. Patient had recent MR I that showed epidural fluid buildup that is causing impingement. Consult neuros urgery for eval. 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 Dr. Monahan does not believe current issues are related to this. Continue steroids. 3. Acute Cystitis. - On PO abx. Follow cultures. 4. Leukocytosis. - Likely due to UTI/steroids. - Continue monitoring. 5. HTN - BP controlled. Continue home meds and monitor. 6. DVT ppx - Heparin. DISPO -Await eval by neurosurgery. - Await eval by 10/15 - CSF fluid collection/Weakness - Seen by nsgy and offered patient 3 options a nd patient elected for IR drainage. Will consult IR for this. - Weakness - Continue PT and OT. Likely SNF from here. - Acute cystitis - Continue abx, cultures pending - DC planning to SNF after procedure 10/16 - Still pending IR intervention this morning when I saw him. Now s/p IR aspirat ion of 15 cc spinal fluid. Await results. - Acute cystitis - Reviewed urin cx, resistant to Bactrim and ampicillin. Will DC current abx and switch to Augmentin for 7 days. F/u with urology. - Continue PT and OT as tolerated. - DC to SNF soon. 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 Continue PT/OT for weakness. - Acute cystitis - abx changed yesterday. Reviewed UA again, possibility of ESB L in the urine. DC Augmentin and start meropenem. Can complete abx at [facility] once ac cepted. - Debility - PT/OT - DISPO - DC to SNF once approved. 10/18 - S/p IR drainage of spinal fluid collection, stable. - ESBL UTI- Continues on Meropenem day 09/20 - Debility - Continue PT/OT - DISPO - Approved for SNF but not cleared to admit. DC Monday. Can complete Me rrem there. 10/19 - Continues on abx for ESBL UTI. - DC pending to SNF once cleared. - CSF fluid without growth to date. FLORES [facility] [phone] * Dennis Clay FNP - 10/19/2019 1:45 PM SHUTTLER [facility]G PROGRESS NOTE SUBJECTIVE - Seen and examined, no new issues. - Sitting in chair at bedside, reports he feels better. REVIEW OF SYSTEMS Review of Systems Musculoskeletal: Negative for back pain. Neurological: Positive for weakness. OBJECTIVE Vitals: 10/18/19 2356 10/19/19 0359 10/19/19 0738 10/19/19 1102 BP: 120/62 (!) 140/67 (!) 141/64 105/60 Pulse: 57 56 54 57 Resp: 16 16 16 16 Temp: 36.2 C (97.2 F) 36.7 C (98 F) 36.3 C (97.4 F) 36.7 C (98 F ) TempSrc: Temporal Artery Temporal Artery Oral Oral SpO2: 96% 97% 96% 95% Weight: Height: PHYSICAL EXAM Physical Exam Constitutional: He is oriented to person, place, and time and well-developed, we ll-nourished, and in no distress. HENT: Head: Normocephalic and atraumatic. Right Ear: External ear normal. Left Ear: External ear normal. Nose: Nose normal. Mouth/Throat: Oropharynx is clear and moist. Eyes: Pupils are equal, round, and reactive to light. Conjunctivae and EOM are n ormal. Neck: Normal range of motion. Neck supple. Cardiovascular: Normal rate, regular rhythm, normal heart sounds and intact dist al pulses. Pulmonary/Chest: Effort normal and breath sounds normal. Abdominal: Soft. Bowel sounds are normal. Neurological: He is alert and oriented to person, place, and time. GCS score is 15. Skin: Skin is warm and dry. Psychiatric: Mood, memory, affect and judgment normal. No results found for this or any previous visit (from the past 24 hour(s)). Current Facility-Administered Medications: meropenem (MERREM) 500 mg in NaCl 0.9% (NS) 100 mL MINI-BAG, 500 mg, IV Pig gyback, Q6H ABX, Achuo, Dennis, WAX BLEACHER, 500 mg at 10/19/19 1105 acetaminophen (TYLENOL) tablet 650 mg, 650 mg, Oral, Q6HPRN, Kaela Person MD amLODIPine (NORVASC) tablet 2.5 mg, 2.5 mg, Oral, DAILY, Rita Hummel, ACNP , 2.5 mg at 10/19/19 0845 docusate (COLACE) capsule 100 mg, 100 mg, Oral, QDAILYPRN, Kaela Person MD finasteride (PROSCAR) tablet 5 mg, 5 mg, Oral, DAILY, Rita Hummel, ACNP, 5 mg at 10/19/19 0845 gabapentin (NEURONTIN) capsule 300 mg, 300 mg, Oral, QHS, Rita Hummel, ACN P, 300 mg at 10/18/19 2035 heparin (porcine) injection 5,000 Units, 5,000 Units, Subcutaneous, Q12H, S Rita coulter ACNP, 5,000 Units at 10/19/19 0845 hydralAZINE (APRESOLINE) injection 10 mg, 10 mg, Intravenous, Q6HPRN, Rita Weiner, ACNP losartan (COZAAR) tablet 50 mg, 50 mg, Oral, DAILY, Rita Hummel, ACNP, 50 mg at 10/19/19 0845 ondansetron (ZOFRAN (PF)) injection 4 mg, 4 mg, Slow IV Push, Q6HPRN, Kaela Person MD pantoprazole (PROTONIX) EC tablet 40 mg, 40 mg, Oral, DAILY, Rita Hummel, ACNP, 40 mg at 10/19/19 0845 predniSONE (DELTASONE) tablet 10 mg, 10 mg, Oral, QAM WITH BREAKFAST, Rita Weiner, ACNP, 10 mg at 10/19/19 0845 tamsulosin (FLOMAX) capsule 0.4 mg, 0.4 mg, Oral, BID, Rita Hummel, ACNP, 0.4 mg at 10/19/19 0845 ASSESSMENT AND PLAN 1. BLE weakness - Patient with history of lumbar stenosis s/p surgery who presents with BLE wea pancho. Seen by Dr. Monahan and I discussed the case with him. Patient had recent MR I that showed epidural fluid buildup that is causing impingement. Consult neuros urgery for eval. 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 Dr. Monahan does not believe current issues are related to this. Continue steroids. 3. Acute Cystitis. - On PO abx. Follow cultures. 4. Leukocytosis. - Likely due to UTI/steroids. - Continue monitoring. 5. HTN - BP controlled. Continue home meds and monitor. 6. DVT ppx - Heparin. DISPO -Await eval by neurosurgery. - Await eval by 10/15 - CSF fluid collection/Weakness - Seen by nsgy and offered patient 3 options a nd patient elected for IR drainage. Will consult IR for this. - Weakness - Continue PT and OT. Likely SNF from here. - Acute cystitis - Continue abx, cultures pending - DC planning to SNF after procedure 10/16 - Still pending IR intervention this morning when I saw him. Now s/p IR aspirat ion of 15 cc spinal fluid. Await results. - Acute cystitis - Reviewed urin cx, resistant to Bactrim and ampicillin. Will DC current abx and switch to Augmentin for 7 days. F/u with urology. - Continue PT and OT as tolerated. - DC to SNF soon. 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 Continue PT/OT for weakness. - Acute cystitis - abx changed yesterday. Reviewed UA again, possibility of ESB L in the urine. DC Augmentin and start meropenem. Can complete abx at [place] once ac cepted. - Debility - PT/OT - DISPO - DC to SNF once approved. 10/18 - S/p IR drainage of spinal fluid collection, stable. - ESBL UTI- Continues on Meropenem day 09/20 - Debility - Continue PT/OT - DISPO - Approved for SNF but not cleared to admit. DC Monday. Can complete Me rrem there. FLORES Vieira [facility] [phone] TLER * James Salmeron RN - 10/19/2019 12:42 PM SHUTTLER Care Management Note 10/19/19 12:42 PM Despite getting auth, [facility] P: [phone] does not have anyone to usha r patient to return back to facility until Monday. [id number] Auth from [facility] LUCAS Sweet, RN [employer] [email or web address] O:[phone] F:[phone] TLER * Sandra Weiner RN - 10/18/2019 3:44 PM SHUTTLER CARE MANAGEMENT NOTE 10/18/19 1544 Patient still pending insurance auth to [facility] P: [phone]. CM placed packet on chart. Patient can transfer via WC Van once approved. Weekend CM/SW to follow up. Sandra Weiner RN, BSN [employer]- [facility] Department of Care Management O [phone] E [email or web address] F [phone] TLER * Mara Dudley OTA - 10/18/2019 12:10 PM SHUTTLER OCCUPATIONAL THERAPY NOTE: Discharge Recommendations: Primary Discharge Plan: senior care facility Equipment Recommendations: Defer to facility Precautions: Weight bearing status: NA General: Fall Bracing: N/A S: Patient agreeable to participate in occupational therapy. PAIN Pre-treatment: denies pain Post-treatment: denies pain O: Patient found sitting upright in bedside chair. Vital signs stable and Famil y present. Patient seen this date for the following: ADL Training Grooming: SBA/Setup. Standing at sink with use of rollator UB dressing: Minimal assist: donning and doffing gown LB Dressing: Minimal assist. Donning and doffing socks Toilet Transfer: CGA. Patient ambulated from recliner <> bathroom with rollator Toileting Hygiene: Minimal assist: Patient was able to stand and sit to usha n buttocks and legs secondary to loose BM. Patient encouraged to complete task a s independently as possible. Therapeutic Exercise/Procedure Educated Patient about ADL training, Adaptive equipment, Compensatory techni ques/adaptive strategies, Energy conservation, Fall prevention, General strength ening, Relaxation/breathing techniques, Role of OT, Safety awareness and Towel/d owel for PRIMITIVO UE: Patient/caregiver instructed to perform HEP 3 times per day, 10 repetitions. Patient/caregiver returns demonstration BUE AROM 4 x 10 repetitions as follow s: Tactile and verbal cues provided for correct technique. Provided patient/caregiver with comprehensive HEP along with detailed instruc tions (visual/verbal demonstration) on how to correctly perform each exercise. Educated about the importance of complying with all exercises to help increas e overall strength, endurance, flexibility, and ROM for self-care independence. Patient/caregiver verbalized understanding to all discussed. Patient left sitting upright in bedside chair with call mojica in reach. Vital sig ns stable and family. A: Patient exhibited Good participation in therapy and responded well to treatme nt this session. Patient met goal(s) 1, 2, 3, 4, 5, 6 and 7. Poor endurance and Persistent weakness remain(s) a limiting factor. Patient continues to present w ith Decreased independence with ADL and Decreased strength/endurance for functio nal activity and will benefit from continued OT services to address above areas and improve functional status. P: Functional motor treatment, Patient/Caregivier Education, Equipment recommend ations, Daily living activities, Therapeutic exercises and Neuromuscular Re-Educ ation KERRY Adkins Supervising OTR Lovely Pickett Pager# [phone] Total Timed Treatment Codes: 62 Min Total Treatment Time: 62 Min TLER * Dennis Clay FNP - 10/18/2019 10:58 AM SHUTTLER [facility] PROGRESS NOTE SUBJECTIVE - Seen and examined, no new issues. - S/p IR drainage of epidural fluid yesterday. REVIEW OF SYSTEMS Review of Systems Musculoskeletal: Negative for back pain. Neurological: Positive for weakness. OBJECTIVE Vitals: 10/17/19 2000 10/18/19 0000 10/18/19 0400 10/18/19 0805 BP: 110/55 112/62 135/66 131/73 Pulse: 75 61 58 64 Resp: 18 18 18 18 Temp: 36.7 C (98 F) 36.7 C (98.1 F) 36.5 C (97.7 F) 36.7 C (98 F ) TempSrc: Oral Oral Oral Oral SpO2: 94% 94% 94% 98% Weight: Height: PHYSICAL EXAM Physical Exam Constitutional: He is oriented to person, place, and time and well-developed, we ll-nourished, and in no distress. HENT: Head: Normocephalic and atraumatic. Right Ear: External ear normal. Left Ear: External ear normal. Nose: Nose normal. Mouth/Throat: Oropharynx is clear and moist. Eyes: Pupils are equal, round, and reactive to light. Conjunctivae and EOM are n ormal. Neck: Normal range of motion. Neck supple. Cardiovascular: Normal rate, regular rhythm, normal heart sounds and intact dist al pulses. Pulmonary/Chest: Effort normal and breath sounds normal. Abdominal: Soft. Bowel sounds are normal. Neurological: He is alert and oriented to person, place, and time. GCS score is 15. Skin: Skin is warm and dry. Psychiatric: Mood, memory, affect and judgment normal. Recent Results (from the past 24 hour(s)) CEREBROSPINAL FLUID GLUCOSE Collection Time: 10/17/19 11:56 AM Result Value Ref Range GLU CSF 104 (H) 50 - 80 mg/dL UNSPUN BODY FLUID COLOR Bloody UNSPUN BODY FLUID CLARITY Turbid SPUN BODY FLUID COLOR Light Yellow SPUN BODY FLUID CLARITY Clear Sediment The sediment volume is <0.5 mLs of the total fluid volume of 7 and its color is red. CEREBROSPINAL FLUID PROTEIN Collection Time: 10/17/19 11:56 AM Result Value Ref Range T. PRO CSF 69.0 (H) 15.0 - 45.0 mg/dL UNSPUN BODY FLUID COLOR Bloody UNSPUN BODY FLUID CLARITY Turbid SPUN BODY FLUID COLOR Light Yellow SPUN BODY FLUID CLARITY Clear Sediment The sediment volume is <0.5 mLs of the total fluid volume of 7 and its color is red. CSF CULTURE Collection Time: 10/17/19 11:57 AM Result Value Ref Range Gram stain Few PMNs or Mononuclear cells observed Gram stain No Organisms seen BODY FLUID DIRECT COUNT Collection Time: 10/17/19 11:57 AM Result Value Ref Range BF COLOR Bloody BF WBC Count 14 (H) 0 - 5 /L BF RBC Count 11,000 /L BODY FLUID MANUAL DIFF Collection Time: 10/17/19 11:57 AM Result Value Ref Range BF SEGS 65 (H) 0 - 7 % BF LYMPHS 17 (L) 28 - 96 % MACROPHAGE 18 16 - 56 % #CELS CNTD 100 CBC WITH DIFFERENTIAL Collection Time: 10/18/19 6:24 AM Result Value Ref Range WBC 7.33 4.20 - 10.70 10*3/L RBC 4.01 (L) 4.26 - 5.52 10*6/L HGB 12.0 (L) 12.2 - 16.4 g/dL HCT 37.7 (L) 38.4 - 49.3 % MCV 94.0 81.7 - 95.6 fL MCH 29.9 26.1 - 32.7 pg MCHC 31.8 31.2 - 35.0 g/dL RDW-SD 46.5 38.5 - 51.6 fL RDW-CV 13.4 12.1 - 15.4 % PLT 165 150 - 328 10*3/L MPV 8.9 (L) 9.8 - 13.0 fL NRBC/100 WBC 0.0 0.0 - 10.0 /100 WBCs NRBC x10^3 <0.01 10*3/L GRAN MAT (NEUT) % 68.9 % IMM GRAN % 1.00 % LYMPH % 17.5 % MONO % 10.5 % EOS % 1.8 % BASO % 0.3 % GRAN MAT x10^3(ANC) 5.06 1.99 - 6.95 10*3/uL IMM GRAN x10^3 0.07 (H) 0.00 - 0.06 10*3/uL LYMPH x10^3 1.28 1.09 - 3.23 10*3/uL MONO x10^3 0.77 0.36 - 1.02 10*3/uL EOS x10^3 0.13 0.06 - 0.53 10*3/uL BASO x10^3 <0.03 0.01 - 0.09 10*3/uL BASIC METABOLIC PANEL (NA, K, CL, CO2, GLUCOSE, BUN, CREATININE, CA) Collection Time: 10/18/19 6:25 AM Result Value Ref Range NA 137 135 - 145 mmol/L K 4.5 3.5 - 5.0 mmol/L CL 107 98 - 108 mmol/L CO2 TOTAL 25 23 - 31 mmol/L AGAP 5 2 - 16 BUN 17 7 - 23 mg/dL GLUCOSE 95 70 - 110 mg/dL CREATININE 1.05 0.60 - 1.25 mg/dL CALCIUM 10.0 8.6 - 10.6 mg/dL eGFR Calculation (Non-) 66.8 mL/min/1.73m2 eGFR Calculation () 81.0 mL/min/1.73m2 Current Facility-Administered Medications: amoxicillin-clavulanate (AUGMENTIN) 875-125 mg per tablet 1 tablet, 1 table t, Oral, Q12H, Achuo, Dennis, WAX BLEACHER, 1 tablet at 10/17/192032 acetaminophen (TYLENOL) tablet 650 mg, 650 mg, Oral, Q6HPRN, Kaela Person MD amLODIPine (NORVASC) tablet 2.5 mg, 2.5 mg, Oral, DAILY, Rita Hummel, ACNP , 2.5 mg at 10/18/19923 docusate (COLACE) capsule 100 mg, 100 mg, Oral, QDAILYPRN, Kaela Person MD finasteride (PROSCAR) tablet 5 mg, 5 mg, Oral, DAILY, Rita Hummel, ACNP, 5 mg at 10/18/19923 gabapentin (NEURONTIN) capsule 300 mg, 300 mg, Oral, QHS, Rita Hummel, ACN P, 300 mg at 10/17/192032 heparin (porcine) injection 5,000 Units, 5,000 Units, Subcutaneous, Q12H, S Rita coulter ACNP, 5,000 Units at 10/17/192032 hydralAZINE (APRESOLINE) injection 10 mg, 10 mg, Intravenous, Q6HPRN, Rita Weiner, ACNP losartan (COZAAR) tablet 50 mg, 50 mg, Oral, DAILY, Rita Hummel ACNP, 50 mg at 10/18/19922 ondansetron (ZOFRAN (PF)) injection 4 mg, 4 mg, Slow IV Push, Q6HPRN, Kalea Person MD pantoprazole (PROTONIX) EC tablet 40 mg, 40 mg, Oral, DAILY, Rita Hummel ACNP, 40 mg at 03/06/20 0924 predniSONE (DELTASONE) tablet 10 mg, 10 mg, Oral, QAM WITH BREAKFAST, Mikey toledo, Rita, ACNP, 10 mg at 10/18/19 0923 tamsulosin (FLOMAX) capsule 0.4 mg, 0.4 mg, Oral, BID, Shaheed, Rita, ACNP, 0.4 mg at 10/18/19 0924 ASSESSMENT AND PLAN 1. BLE weakness - Patient with history of lumbar stenosis s/p surgery who presents with BLE wea kness. Seen by Dr. Monahan and I discussed the case with him. Patient had recent MR I that showed epidural fluid buildup that is causing impingement. Consult neuros urgery for eval. 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 Dr. Monahan does not believe current issues are related to this. Continue steroids. 3. Acute Cystitis. - On PO abx. Follow cultures. 4. Leukocytosis. - Likely due to UTI/steroids. - Continue monitoring. 5. HTN - BP controlled. Continue home meds and monitor. 6. DVT ppx - Heparin. DISPO -Await eval by neurosurgery. - Await eval by 10/15 - CSF fluid collection/Weakness - Seen by nsgy and offered patient 3 options a nd patient elected for IR drainage. Will consult IR for this. - Weakness - Continue PT and OT. Likely SNF from here. - Acute cystitis - Continue abx, cultures pending - DC planning to SNF after procedure 10/16 - Still pending IR intervention this morning when I saw him. Now s/p IR aspirat ion of 15 cc spinal fluid. Await results. - Acute cystitis - Reviewed urin cx, resistant to Bactrim and ampicillin. Will DC current abx and switch to Augmentin for 7 days. F/u with urology. - Continue PT and OT as tolerated. - DC to SNF soon. 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 Continue PT/OT for weakness. - Acute cystitis - abx changed yesterday. Reviewed UA again, possibility of ESB L in the urine. DC Augmentin and start meropenem. Can complete abx at NM once ac cepted. - Debility - PT/OT - DISPO - DC to SNF once approved. Dennis Achuo, [place] H[employer] CONSULTANT-[facility] [phone] TLER * Albert Monahan MD - 10/18/2019 10:31 AM SHUTTLER Progress note Neurology DATE OF SERVICE: 10/18/19 Day of Hospitalization: 4 Neurology follow up: For: Fall and weakness SUBJECTIVE: HPI: He had procedure done by IR. 15 ml of CSF taken out from the cyst. He is little better but family has a lot of neurosurgical questions regarding the procedure d one. Past Medical History: Diagnosis Date Enlarged prostate HTN (hypertension) Myasthenia gravis Sleep apnea History reviewed. No pertinent surgical history. No family history on file. Social History Tobacco Use Smoking status: Not on file Substance Use Topics Alcohol use: Not on file Drug use: Not on file Allergies Allergen Reactions Oxycontin [Oxycodone Hcl] Hallucinations Patient Active Problem List Diagnosis Generalized weakness Myasthenia gravis HTN (hypertension) Leg weakness, bilateral Lumbar stenosis Meds: Current Facility-Administered Medications: amoxicillin-clavulanate (AUGMENTIN) 875-125 mg per tablet 1 tablet, 1 table t, Oral, Q12H, Dennis Clay FNP, 1 tablet at 10/17/192032 acetaminophen (TYLENOL) tablet 650 mg, 650 mg, Oral, Q6HPRN, Kaela Person MD amLODIPine (NORVASC) tablet 2.5 mg, 2.5 mg, Oral, DAILY, Rita Hummel ACNP , 2.5 mg at 10/18/19923 docusate (COLACE) capsule 100 mg, 100 mg, Oral, QDAILYPRRaza Kumar Faria, MD finasteride (PROSCAR) tablet 5 mg, 5 mg, Oral, DAILY, Rita Hummel ACNP, 5 mg at 10/18/19923 gabapentin (NEURONTIN) capsule 300 mg, 300 mg, Oral, QHS, Rita Hummel ACN P, 300 mg at 10/17/192032 heparin (porcine) injection 5,000 Units, 5,000 Units, Subcutaneous, Q12H, S amuel, Rita, ACNP, 5,000 Units at 10/17/192032 hydralAZINE (APRESOLINE) injection 10 mg, 10 mg, Intravenous, Q6HPRN, Mikey toledo Rita, ACNP losartan (COZAAR) tablet 50 mg, 50 mg, Oral, DAILY, Shaheed, Rita, ACNP, 50 mg at 10/18/19922 ondansetron (ZOFRAN (PF)) injection 4 mg, 4 mg, Slow IV Push, Q6HPRN, Kaela Person MD pantoprazole (PROTONIX) EC tablet 40 mg, 40 mg, Oral, DAILY, Shaheed, Rita, ACNP, 40 mg at 10/18/19923 predniSONE (DELTASONE) tablet 10 mg, 10 mg, Oral, QAM WITH BREAKFAST, Benjaminue l, Rita, ACNP, 10 mg at 10/18/19922 tamsulosin (FLOMAX) capsule 0.4 mg, 0.4 mg, Oral, BID, Ben Hummely, ACNP, 0.4 mg at 10/18/19923 Review of Systems: Review of Systems Constitutional: Positive for fatigue. Negative for diaphoresis, fever, unexpecte d weight change, weight gain and weight loss. HENT: Negative for hearing loss, tinnitus, trouble swallowing and voice change. Eyes: Negative for photophobia, pain, discharge and visual disturbance. Respiratory: Negative for cough, choking, chest tightness, shortness of breath a nd wheezing. Breasts: Negative. Cardiovascular: Negative for chest pain, palpitations and leg swelling. Gastrointestinal: Negative for abdominal pain, nausea and vomiting. Genitourinary: Positive for urgency and difficulty urinating. Negative for bladd er incontinence, dysuria, frequency, flank pain and decreased urine volume. Musculoskeletal: Positive for back pain and gait problem. Negative for arthralgi as, joint swelling, myalgias, neck pain and neck stiffness. Skin: Negative for color change, pallor and rash. Neurological: Positive for weakness. Negative for dizziness, tremors, seizures, syncope, facial asymmetry, speech difficulty, light-headedness, numbness and hea daches. Psychiatric/Behavioral: Negative for behavioral problems, confusion, decreased c oncentration, hallucinations and sleep disturbance. The patient is not nervous/a nxious. Hematological: Negative for cold intolerance and heat intolerance. Does not brui se/bleed easily. Endocrine: Negative for cold intolerance, heat intolerance, weight gain and weig ht loss. OBJECTIVE: Vitals: 10/17/19 2000 10/18/19 0000 10/18/19 0400 10/18/19 0805 BP: 110/55 112/62 135/66 131/73 Pulse: 75 61 58 64 Resp: 18 18 18 18 Temp: 36.7 C (98 F) 36.7 C (98.1 F) 36.5 C (97.7 F) 36.7 C (98 F ) TempSrc: Oral Oral Oral Oral SpO2: 94% 94% 94% 98% Weight: Height: Physical Exam: Physical Exam Constitutional: He is oriented to person, place, and time. Eyes: Pupils are equal, round, and reactive to light. EOM are normal. Neurological: He is oriented to person, place, and time. Reflex Scores: Tricep reflexes are 2+ on the right side and 2+ on the left side. Bicep reflexes are 2+ on the right side and 2+ on the left side. Brachioradialis reflexes are 2+ on the right side and 2+ on the left side. Patellar reflexes are 2+ on the right side and 2+ on the left side. Achilles reflexes are 2+ on the right side and 2+ on the left side. Psychiatric: His speech is normal. Neurologic Exam Mental Status Oriented to person, place, and time. Speech: speech is normal Cranial Nerves Cranial nerves II through XII intact. CN III, IV, Pupils are equal, round, and reactive to light. Extraocular motions are normal. Motor Exam Strength Strength 5/5 except as noted. Right iliopsoas: 4/5 Right quadriceps: 4/5 Gait, Coordination, and Reflexes Reflexes Right brachioradialis: 2+ Left brachioradialis: 2+ Right biceps: 2+ Left biceps: 2+ Right triceps: 2+ Left triceps: 2+ Right patellar: 2+ Left patellar: 2+ Right achilles: 2+ Left achilles: 2+ Laboratory: Recent Results (from the past 24 hour(s)) CEREBROSPINAL FLUID GLUCOSE Collection Time: 10/17/19 11:56 AM Result Value Ref Range GLU CSF 104 (H) 50 - 80 mg/dL UNSPUN BODY FLUID COLOR Bloody UNSPUN BODY FLUID CLARITY Turbid SPUN BODY FLUID COLOR Light Yellow SPUN BODY FLUID CLARITY Clear Sediment The sediment volume is <0.5 mLs of the total fluid volume of 7 and its color is red. CEREBROSPINAL FLUID PROTEIN Collection Time: 10/17/19 11:56 AM Result Value Ref Range T. PRO CSF 69.0 (H) 15.0 - 45.0 mg/dL UNSPUN BODY FLUID COLOR Bloody UNSPUN BODY FLUID CLARITY Turbid SPUN BODY FLUID COLOR Light Yellow SPUN BODY FLUID CLARITY Clear Sediment The sediment volume is <0.5 mLs of the total fluid volume of 7 and its color is red. CSF CULTURE Collection Time: 10/17/19 11:57 AM Result Value Ref Range Gram stain Few PMNs or Mononuclear cells observed Gram stain No Organisms seen BODY FLUID DIRECT COUNT Collection Time: 10/17/19 11:57 AM Result Value Ref Range BF COLOR Bloody BF WBC Count 14 (H) 0 - 5 /L BF RBC Count 11,000 /L BODY FLUID MANUAL DIFF Collection Time: 10/17/19 11:57 AM Result Value Ref Range BF SEGS 65 (H) 0 - 7 % BF LYMPHS 17 (L) 28 - 96 % MACROPHAGE 18 16 - 56 % #CELS CNTD 100 CBC WITH DIFFERENTIAL Collection Time: 10/18/19 6:24 AM Result Value Ref Range WBC 7.33 4.20 - 10.70 10*3/L RBC 4.01 (L) 4.26 - 5.52 10*6/L HGB 12.0 (L) 12.2 - 16.4 g/dL HCT 37.7 (L) 38.4 - 49.3 % MCV 94.0 81.7 - 95.6 fL MCH 29.9 26.1 - 32.7 pg MCHC 31.8 31.2 - 35.0 g/dL RDW-SD 46.5 38.5 - 51.6 fL RDW-CV 13.4 12.1 - 15.4 % PLT 165 150 - 328 10*3/L MPV 8.9 (L) 9.8 - 13.0 fL NRBC/100 WBC 0.0 0.0 - 10.0 /100 WBCs NRBC x10^3 <0.01 10*3/L GRAN MAT (NEUT) % 68.9 % IMM GRAN % 1.00 % LYMPH % 17.5 % MONO % 10.5 % EOS % 1.8 % BASO % 0.3 % GRAN MAT x10^3(ANC) 5.06 1.99 - 6.95 10*3/uL IMM GRAN x10^3 0.07 (H) 0.00 - 0.06 10*3/uL LYMPH x10^3 1.28 1.09 - 3.23 10*3/uL MONO x10^3 0.77 0.36 - 1.02 10*3/uL EOS x10^3 0.13 0.06 - 0.53 10*3/uL BASO x10^3 <0.03 0.01 - 0.09 10*3/uL BASIC METABOLIC PANEL (NA, K, CL, CO2, GLUCOSE, BUN, CREATININE, CA) Collection Time: 10/18/19 6:25 AM Result Value Ref Range NA 137 135 - 145 mmol/L K 4.5 3.5 - 5.0 mmol/L CL 107 98 - 108 mmol/L CO2 TOTAL 25 23 - 31 mmol/L AGAP 5 2 - 16 BUN 17 7 - 23 mg/dL GLUCOSE 95 70 - 110 mg/dL CREATININE 1.05 0.60 - 1.25 mg/dL CALCIUM 10.0 8.6 - 10.6 mg/dL eGFR Calculation (Non-) 66.8 mL/min/1.73m2 eGFR Calculation () 81.0 mL/min/1.73m2 Diagnostic Results: Ir Spinal Aspiration Nucleus Pulposus Result Date: 10/17/2019 Successful aspiration of 15 mL of serous sinus fluid from the known collection i n the laminectomy bed of the lumbar spine. Mary Underwood was physically pre sent and participated during the entire procedure of the IR SPINAL ASPIRATION NU CLEUS PULPOSUS. ASSESSMENT/PLAN: Assessment: 88 year old man with MG, s/p spinal surgery in 2004, admitted this time with inc reasing problem with walking, balance problem and Bladder impairment. Neurologically , he is weaker in his right leg . He walks with walker . Outside MRI showed possible cord compression and Lumbar spinal stenosis . Labs showed UTI . 1. UTI: he has UTI and under medical care. Infection can aggravate MG, but I , b elieve , stable. 2. MG : on steroid , ok to continue. 3. Leg weakness and bladder trouble: rule out as a complication of spinal cord c ompression. 4. Lumbar spinal cord lesion per outside MRI : Neurosurgery has seen him . R53.1 Weakness (primary encounter diagnosis) D72.829 Leukocytosis, unspecified type M54.5 Lumbar back pain Patient Active Problem List Diagnosis Generalized weakness Myasthenia gravis HTN (hypertension) Leg weakness, bilateral Lumbar stenosis Plan: Advised follow up with neurosurgery. This is 30 minutes visits. More than half of the time spent with the patient and family discussing problems , going through labs and imaging studies. Time spent in coordinating care with other providers. Note has been written through [employer], has not been revised thoroughly. Some typo mistakes might hapen Call me for any question and concern. Hillary Monahan MD Asst. Professor in Clinical Neurology [facility]. [facility] ( ) [phone]. TLER * Sandra Weiner RN - 10/17/2019 11:59 AM SHUTTLER Care Management Continued Stay Assessment LOS Day: 3 Estimated /Planned Discharge Date: 10/18/19 RED male 88 year old Date CM/SW last Face to Face completed with patient/family: 10/17/19 Funding source: Payor: [facility] MEDIC[facility]VANTAGE / Plan: [facility] MEDICARE COMPLETE CHOICE / Product Type: Medicare Adv PPO / Insurance DC financial planner: N/a PCP:Erik Rogel Patient/Family/MPOA/Caregiver Engaged with Transitional Care Plan: yes Patient/Family/MPOA/Caregiver concurs with proposed discharge plan: yes Name, Relationship to Patient and contact number of individual acting on behalf of the patient: patient and spouse Chief Complaint/Admitting Dx:Generalized weakness Hospital Problems: Generalized weakness Myasthenia gravis HTN (hypertension) Leg weakness, bilateral Lumbar stenosis Summary of hospital course: 1. BLE weakness - Patient with history of lumbar stenosis s/p surgery wh o presents with BLE weakness. Seen by Dr. Monahan and I discussed the case with him . Patient had recent MRI that showed epidural fluid buildup that is causing impi ngement. Consult neurosurgery for eval. 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 Dr. Monahan does not believe curren t issues are related to this. Continue steroids. 3. Acute Cystitis. - On PO abx. Follow cultures. 4. Leukocytosis. - Likely due to UTI/steroids. - Continue monitoring. 5. HTN - BP controlled. Continue home meds and monitor. 6. DVT ppx - Heparin. DISPO -Await eval by neurosurgery. - Await eval by 3/4 - CSF fluid collection/Weakness - Seen by nsgy and offer ed patient 3 options and patient elected for IR drainage. Will consult IR for th is. - Weakness - Continue PT and OT. Likely SNF from here. - Acute cystitis - Continue abx, cultures pending - DC planning to SNF after procedure FLORES Vieira CM/SW Interventions/Resources provided: SNF referral CM/SW Interventions/Resources still needed: pending medical progression Anticipated Discharge Destination[facility]) If DC to home, who will support patient: Anticipated DME needs: None Referrals sent: yes If no, why/when will referral be sent:: n/a Has patient been accepted: pending insurance approval Revised plan if not accepted: home with What is the clinical care happening right now that must be done in the hospital and only the hospital: pending IR drainage of abcess Please addend note following Length of Stay rounds and complete section below Were any recommendations made during LOS rounds on this patient:no If yes, what new recommendations were made at LOS: n/a Sandra Weiner RN, BSN [employer]- [facility] Department of Care Management O [phone] E [email or web address] F [phone] TLER * Dennis Clay FNP - 10/17/2019 9:30 AM SHUTTLER [facility] PROGRESS NOTE SUBJECTIVE - Seen and examined, no new issues. - Up in chair and moving around more today. - Leg pain is better. REVIEW OF SYSTEMS Review of Systems Musculoskeletal: Negative for back pain. Neurological: Positive for weakness. OBJECTIVE Vitals: 10/17/19 0300 10/17/19 0500 10/17/19 0700 10/17/19 0807 BP: 122/70 134/67 Pulse: 51 (!) 49 52 Resp: 18 18 18 Temp: 36.4 C (97.6 F) 36.5 C (97.7 F) TempSrc: Oral Oral SpO2: 94% 97% 98% Weight: 82.9 kg (182 lb 11.2 oz) Height: PHYSICAL EXAM Physical Exam Constitutional: He is oriented to person, place, and time and well-developed, we ll-nourished, and in no distress. HENT: Head: Normocephalic and atraumatic. Right Ear: External ear normal. Left Ear: External ear normal. Nose: Nose normal. Mouth/Throat: Oropharynx is clear and moist. Eyes: Pupils are equal, round, and reactive to light. Conjunctivae and EOM are n ormal. Neck: Normal range of motion. Neck supple. Cardiovascular: Normal rate, regular rhythm, normal heart sounds and intact dist al pulses. Pulmonary/Chest: Effort normal and breath sounds normal. Abdominal: Soft. Bowel sounds are normal. Neurological: He is alert and oriented to person, place, and time. GCS score is 15. Skin: Skin is warm and dry. Psychiatric: Mood, memory, affect and judgment normal. No results found for this or any previous visit (from the past 24 hour(s)). Current Facility-Administered Medications: penicillin v potassium (PEN-VEE K) tablet 500 mg, 500 mg, Oral, Q8H, Rita Hummel ACNP, 500 mg at 10/17/19 0525 acetaminophen (TYLENOL) tablet 650 mg, 650 mg, Oral, Q6HPRaza BREWER Faria, MD amLODIPine (NORVASC) tablet 2.5 mg, 2.5 mg, Oral, DAILY, Rita Hummel ACNP , 2.5 mg at 10/17/19 0815 docusate (COLACE) capsule 100 mg, 100 mg, Oral, QDAILYPRaza BREWER Faria, MD finasteride (PROSCAR) tablet 5 mg, 5 mg, Oral, DAILY, Rita Hummel ACNP, 5 mg at 10/17/19 08 gabapentin (NEURONTIN) capsule 300 mg, 300 mg, Oral, QHS, Shaheed, Rita, ACN P, 300 mg at 10/16/192025 heparin (porcine) injection 5,000 Units, 5,000 Units, Subcutaneous, Q12H, S amtamika, Rita, ACNP, 5,000 Units at 10/16/19 0844 hydralAZINE (APRESOLINE) injection 10 mg, 10 mg, Intravenous, Q6HPRN, Benjaminue l, Rita, ACNP losartan (COZAAR) tablet 50 mg, 50 mg, Oral, DAILY, Shaheed, Rita, ACNP, 50 mg at 10/17/19814 ondansetron (ZOFRAN (PF)) injection 4 mg, 4 mg, Slow IV Push, Q6HPRN, Kaela Person MD pantoprazole (PROTONIX) EC tablet 40 mg, 40 mg, Oral, DAILY, Shaheed, Rita, ACNP, 40 mg at 10/17/19814 predniSONE (DELTASONE) tablet 10 mg, 10 mg, Oral, QAM WITH BREAKFAST, Mikey l, Rita, ACNP, 10 mg at 10/17/1915 sulfamethoxazole-trimethoprim (BACTRIM SS) 400-80 mg per tablet 1 tablet, 1 tablet, Oral, DAILY, Shaheed Rita, ACNP, 1 tablet at 10/17/19814 tamsulosin (FLOMAX) capsule 0.4 mg, 0.4 mg, Oral, BID, Shaheed, Rita, ACNP, 0.4 mg at 10/17/19814 ASSESSMENT AND PLAN 1. BLE weakness - Patient with history of lumbar stenosis s/p surgery who presents with BLE wea kness. Seen by Dr. Monahan and I discussed the case with him. Patient had recent MR I that showed epidural fluid buildup that is causing impingement. Consult neuros urgery for eval. 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 Dr. Monahan does not believe current issues are related to this. Continue steroids. 3. Acute Cystitis. - On PO abx. Follow cultures. 4. Leukocytosis. - Likely due to UTI/steroids. - Continue monitoring. 5. HTN - BP controlled. Continue home meds and monitor. 6. DVT ppx - Heparin. DISPO -Await eval by neurosurgery. - Await eval by 10/15 - CSF fluid collection/Weakness - Seen by nsgy and offered patient 3 options a nd patient elected for IR drainage. Will consult IR for this. - Weakness - Continue PT and OT. Likely SNF from here. - Acute cystitis - Continue abx, cultures pending - DC planning to SNF after procedure 10/16 - Still pending IR intervention this morning when I saw him. Now s/p IR aspirat ion of 15 cc spinal fluid. Await results. - Acute cystitis - Reviewed urin cx, resistant to Bactrim and ampicillin. Will DC current abx and switch to Augmentin for 7 days. F/u with urology. - Continue PT and OT as tolerated. - DC to SNF soon. FLORES Vieira [facility] [phone] TLER * Sandra Weiner RN - 10/17/2019 9:09 AM SHUTTLER CARE MANAGEMENT NOTE 10/17/19 0909 CM spoke with Adalgisa at [facility] who stated that insurance auth is still pe nding for SNF placement. Adalgisa asked for any updated clinicals to be faxed. Sherrill sutton CM attempting to help patient with obtaining new BIPAP. Patient's daughters catrachito louis that Dr. Cook's office has already attempted to get patient new BIPAP. CM called Dr. Cook's office P: [phone] to determine whether or not this h as been started through her clinic. CM left voicemail requesting call back. CM t o follow up. Sandra Weiner RN, BSN [employer]- [facility] Department of Care Management O [phone] E [email or web address] F [phone] TLER * Albert Monahan MD - 10/16/2019 3:52 PM SHUTTLER Progress note Neurology DATE OF SERVICE: 10/16/19 Day of Hospitalization: 2 Neurology follow up: For: Weakness and fall SUBJECTIVE: HPI: stable and no changes in neuro status. Neurosurgery saw him yesterday and gav e him some treatment options. Past Medical History: Diagnosis Date Enlarged prostate HTN (hypertension) Myasthenia gravis Sleep apnea History reviewed. No pertinent surgical history. No family history on file. Social History Tobacco Use Smoking status: Not on file Substance Use Topics Alcohol use: Not on file Drug use: Not on file Allergies Allergen Reactions Oxycontin [Oxycodone Hcl] Hallucinations Patient Active Problem List Diagnosis Generalized weakness Myasthenia gravis HTN (hypertension) Leg weakness, bilateral Lumbar stenosis Meds: Current Facility-Administered Medications: penicillin v potassium (PEN-VEE K) tablet 500 mg, 500 mg, Oral, Q8H, Rita Hummel ACNP, 500 mg at 10/16/19 1326 acetaminophen (TYLENOL) tablet 650 mg, 650 mg, Oral, Q6HPRN, Kaela Person MD amLODIPine (NORVASC) tablet 2.5 mg, 2.5 mg, Oral, DAILY, Rita Hummel ACNP , 2.5 mg at 10/16/19 0844 docusate (COLACE) capsule 100 mg, 100 mg, Oral, QDAILYPRN, Kaela Person MD finasteride (PROSCAR) tablet 5 mg, 5 mg, Oral, DAILY, Rita Hummel ACNP, 5 mg at 10/16/19 08 gabapentin (NEURONTIN) capsule 300 mg, 300 mg, Oral, QHS, Rita Hummel, ACN P, 300 mg at 10/15/192033 heparin (porcine) injection 5,000 Units, 5,000 Units, Subcutaneous, Q12H, S Rita coulter, ACNP, 5,000 Units at 10/16/19 0844 hydralAZINE (APRESOLINE) injection 10 mg, 10 mg, Intravenous, Q6HPRN, Rita Weiner, ACNP losartan (COZAAR) tablet 50 mg, 50 mg, Oral, DAILY, Rita Hummel, ACNP, 50 mg at 10/16/19 0844 ondansetron (ZOFRAN (PF)) injection 4 mg, 4 mg, Slow IV Push, Q6HPRN, Kaela Person MD pantoprazole (PROTONIX) EC tablet 40 mg, 40 mg, Oral, DAILY, Rita Hummel, ACNP, 40 mg at 10/16/19 0844 predniSONE (DELTASONE) tablet 10 mg, 10 mg, Oral, QAM WITH BREAKFAST, Mikey lBeny, ACNP, 10 mg at 10/16/19 0844 sulfamethoxazole-trimethoprim (BACTRIM SS) 400-80 mg per tablet 1 tablet, 1 tablet, Oral, DAILY, Rita Hummel, ACNP, 1 tablet at 10/16/19 0844 tamsulosin (FLOMAX) capsule 0.4 mg, 0.4 mg, Oral, BID, Shaheed, Rita, ACNP, 0.4 mg at 10/16/19 0844 Review of Systems: Review of Systems Constitutional: Positive for fatigue. Negative for diaphoresis, fever, unexpecte d weight change, weight gain and weight loss. HENT: Negative for hearing loss, tinnitus, trouble swallowing and voice change. Eyes: Negative for photophobia, pain, discharge and visual disturbance. Respiratory: Negative for cough, choking, chest tightness, shortness of breath a nd wheezing. Breasts: Negative. Cardiovascular: Negative for chest pain, palpitations and leg swelling. Gastrointestinal: Negative for abdominal pain, nausea and vomiting. Genitourinary: Positive for urgency and difficulty urinating. Negative for bladd er incontinence, dysuria, frequency, flank pain and decreased urine volume. Musculoskeletal: Positive for back pain and gait problem. Negative for arthralgi as, joint swelling, myalgias, neck pain and neck stiffness. Skin: Negative for color change, pallor and rash. Neurological: Positive for weakness. Negative for dizziness, tremors, seizures, syncope, facial asymmetry, speech difficulty, light-headedness, numbness and hea daches. Psychiatric/Behavioral: Negative for behavioral problems, confusion, decreased c oncentration, hallucinations and sleep disturbance. The patient is not nervous/a nxious. Hematological: Negative for cold intolerance and heat intolerance. Does not brui se/bleed easily. Endocrine: Negative for cold intolerance, heat intolerance, weight gain and weig ht loss. OBJECTIVE: Vitals: 10/16/19 0300 10/16/19 0730 10/16/19 0800 10/16/19 1235 BP: 111/62 115/62 118/58 Pulse: 53 56 61 56 Resp: 18 18 18 18 Temp: 36.6 C (97.8 F) 36.4 C (97.5 F) 36.6 C (97.9 F) TempSrc: Oral Oral Oral SpO2: 95% 95% 95% 90% Weight: Height: Physical Exam: Physical Exam Constitutional: He is oriented to person, place, and time. He appears well-devel oped and well-nourished. HENT: Head: Normocephalic and atraumatic. Eyes: Pupils are equal, round, and reactive to light. EOM are normal. Neck: Normal range of motion. Neck supple. Cardiovascular: Normal rate, regular rhythm, normal heart sounds and intact dist al pulses. Pulmonary/Chest: Effort normal and breath sounds normal. No respiratory distress . He has no wheezes. He exhibits no tenderness. Abdominal: Soft. He exhibits no distension. There is no tenderness. There is no guarding. Musculoskeletal: Normal range of motion. He exhibits no edema or tenderness. Neurological: He is alert and oriented to person, place, and time. He displays n ormal reflexes. No cranial nerve deficit or sensory deficit. He exhibits normal muscle tone. He displays a negative Romberg sign. Coordination normal. Reflex Scores: Tricep reflexes are 2+ on the right side and 2+ on the left side. Bicep reflexes are 2+ on the right side and 2+ on the left side. Brachioradialis reflexes are 2+ on the right side and 2+ on the left side. Patellar reflexes are 2+ on the right side and 2+ on the left side. Achilles reflexes are 2+ on the right side and 2+ on the left side. Skin: Skin is warm and dry. No rash noted. No cyanosis or erythema. No pallor. N ails show no clubbing. Psychiatric: He has a normal mood and affect. His speech is normal and behavior is normal. Judgment and thought content normal. Cognition and memory are normal. Neurologic Exam Mental Status Oriented to person, place, and time. Speech: speech is normal Cranial Nerves Cranial nerves II through XII intact. CN III, IV, Pupils are equal, round, and reactive to light. Extraocular motions are normal. Motor Exam Strength Strength 5/5 except as noted. Right iliopsoas: 4/5 Right quadriceps: 4/5 Gait, Coordination, and Reflexes Reflexes Right brachioradialis: 2+ Left brachioradialis: 2+ Right biceps: 2+ Left biceps: 2+ Right triceps: 2+ Left triceps: 2+ Right patellar: 2+ Left patellar: 2+ Right achilles: 2+ Left achilles: 2+ Laboratory: No results found for this or any previous visit (from the past 24 hour(s)). Diagnostic Results: Chest 2 Views Result Date: 10/14/2019 Impression: 1. No acute disease. Location Code: 7827 SSMENT/PLAN: Assessment: 88 year old man with MG, s/p spinal surgery in 2004, admitted this time with inc reasing problem with walking, balance problem and Bladder impairment. Neurologically , he is weaker in his right leg . He walks with walker . Outside MRI showed possible cord compression and Lumbar spinal stenosis . Labs showed U TI . 1. UTI: he has UTI and under medical care. Infection can aggravate MG, but I , b elieve , stable. 2. MG : on steroid , ok to continue. 3. Leg weakness and bladder trouble: rule out as a complication of spinal cord c ompression. 4. Lumbar spinal cord lesion per outside MRI : needs neurosurgery evaluation. R53.1 Weakness (primary encounter diagnosis) D72.829 Leukocytosis, unspecified type Patient Active Problem List Diagnosis Generalized weakness Myasthenia gravis HTN (hypertension) Leg weakness, bilateral Lumbar stenosis Plan: discussed with them again about Neurosurgery opinion . I told them . I will text N/S that Patient is willing to go with Neurosurgery pr dwight. Dr. Anders was texted. . Please, call his office that patient will take the procedure. This is 30 minutes visits. More than half of the time spent with the patient and family discussing problems , going through labs and imaging studies. Time spent in coordinating care with other providers. Note has been written through [employer], has not been revised thoroughly. Some typo mistakes might hapen Call me for any question and concern. Hillary Monahan MD Asst. Professor in Clinical Neurology [facility]. [facility] ( C) [phone]. TLER * Gem Sarabia, PHOTOENGRAVING FINISHER - 10/16/2019 2:38 PM SHUTTLER Physical Therapy Progress Note: Recommendations: Primary discharge plan: [facility] facility Equipment recommendations: defer to facility - patient may require RW (has rolla tor but not currently safe ambulating with it) PAIN: denies pain PRECAUTIONS: Weight Bearing Precaution: WBAT General Precautions: General, Fall Bracing/Cast present or required:N/A S: Patient agreeable to working with PT. O: Patient met Semi reclined in bed, with family in room. Patient seen for the following: Bed mobility: - Supine to sit: SBA/Setup - Scooting to edge of bed: SBA/Setup - analyzed patient's static/dynamic sitting balance: Fair Transfers: Sit to stand: Minimal assist using Rolling Walker Stand to sit: CGA using Rolling Walker Static/dynamic standing balance: Fair Verbal cueing provided for correct hand placement and correct use of AD - cued provided for postural adjustment Gait: Assisted patient with ambulation as follows: 50 feet, 50 feet using Rolling Wal ker and Minimal assist <-> Moderate assist - Patient presenting with Step-to gait pattern. with minimal <-> moderate instability - patient with LOB x 2 due to increase posterior trunk lean and requiring modera te assist to help correct balance - patient presenting with R LE external rotation during swing phase - cued provided to internal rotate - patient unable to correct gait pattern due to c/o weakness - patient presenting with R foot drop -cued provided for postural adjustment - provided patient with 1 x sitting rest break due to c/o fatigue Therapeutic exercise: instructed patient in the following: ankle pumps, quad sets, glut sets, adducto r sets, heel slides, hip abduction/adduction, straight leg raises, long arc quad s, seated marching, mini-squats, patient/caregiver instructed to perform HEP 3 t imes per day, 10 repetitions. -introduced supine and sitting therex HEP to help improve primitivo LE strength - patient performing sitting primitivo LE AROM x 10 reps: Long arc quads, seated march ing -provided patient with visual comprehensive HEP along with detailed instructions (visual/verbal demo) on how to correctly perform all exercise reps -Educated the importance of compliance with performance of all exercises to help with increasing overall strength, endurance, flexibility, and ROM -patient/caregiver verbalizing understanding to all discussed After session, patient Up in chair, with family in room and call mojica provided. RN notified. A: Patient tolerated session well. Patient progressing toward goals #1, #2, #3, #4. Patient with increased gait distance since evaluation. However, patient w ith limited with gait due to c/o fatigue. P: PT will - attempt to increase ambulation next session. Total Timed Tx Codes in Minutes: 34 Min Total Treatment Time in Minutes: 34 Min Gem Sarabia PTA Pager # [phone] Supervising PT Kirti Bautista, PT, DPT TLER * Sandra Weiner RN - 10/16/2019 11:42 AM SHUTTLER CARE MANAGEMENT NOTE 10/16/19 1142 Pending insurance auth to [facility] at this time. Patient and family are inq uiring about getting a BIPAP at home. Patient's daughter has a script for BIPAP at bedside. Patient's daughter also provided sleep study to CM. CM will attempt to call fly setter office to determine if this order has been started yet in clinic. CM to follow up. Sandra Weiner RN, BSN [employer]- [facility] Department of Care Management O [phone] E [email or web address] F [phone] TLER * Dennis Clay FNP - 10/16/2019 10:59 AM SHUTTLER AMG PROGRESS NOTE SUBJECTIVE - Seen and examined, no new issues. - Seen by nsgy, options provided. Patient elected for needle drainage of fluid c ollection. REVIEW OF SYSTEMS Review of Systems Musculoskeletal: Negative for back pain. Neurological: Positive for weakness. All other systems reviewed and are negative. OBJECTIVE Vitals: 10/16/19 0000 10/16/19 0300 10/16/19 0730 10/16/19 0800 BP: 125/62 111/62 115/62 Pulse: 53 53 56 61 Resp: 18 18 18 18 Temp: 36.6 C (97.8 F) 36.6 C (97.8 F) 36.4 C (97.5 F) TempSrc: Oral Oral Oral SpO2: 95% 95% 95% 95% Weight: Height: PHYSICAL EXAM Physical Exam Constitutional: He is oriented to person, place, and time and well-developed, we ll-nourished, and in no distress. HENT: Head: Normocephalic and atraumatic. Right Ear: External ear normal. Left Ear: External ear normal. Nose: Nose normal. Mouth/Throat: Oropharynx is clear and moist. Eyes: Pupils are equal, round, and reactive to light. Conjunctivae and EOM are n ormal. Neck: Normal range of motion. Neck supple. Cardiovascular: Normal rate, regular rhythm, normal heart sounds and intact dist al pulses. Pulmonary/Chest: Effort normal and breath sounds normal. Abdominal: Soft. Bowel sounds are normal. Neurological: He is alert and oriented to person, place, and time. GCS score is 15. Skin: Skin is warm and dry. Psychiatric: Mood, memory, affect and judgment normal. Recent Results (from the past 24 hour(s)) Troponin I Collection Time: 10/15/19 3:15 PM Result Value Ref Range TROPONIN I 0.004 <=0.034 ng/mL CBC WITH DIFFERENTIAL Collection Time: 10/15/19 3:16 PM Result Value Ref Range WBC 10.38 4.20 - 10.70 10*3/L RBC 4.26 4.26 - 5.52 10*6/L HGB 12.3 12.2 - 16.4 g/dL HCT 39.2 38.4 - 49.3 % MCV 92.0 81.7 - 95.6 fL MCH 28.9 26.1 - 32.7 pg MCHC 31.4 31.2 - 35.0 g/dL RDW-SD 46.7 38.5 - 51.6 fL RDW-CV 13.6 12.1 - 15.4 % PLT 153 150 - 328 10*3/L MPV 9.6 (L) 9.8 - 13.0 fL NRBC/100 WBC 0.0 0.0 - 10.0 /100 WBCs NRBC x10^3 <0.01 10*3/L GRAN MAT (NEUT) % 89.4 % IMM GRAN % 0.70 % LYMPH % 5.0 % MONO % 4.7 % EOS % 0.1 % BASO % 0.1 % GRAN MAT x10^3(ANC) 9.28 (H) 1.99 - 6.95 10*3/uL IMM GRAN x10^3 0.07 (H) 0.00 - 0.06 10*3/uL LYMPH x10^3 0.52 (L) 1.09 - 3.23 10*3/uL MONO x10^3 0.49 0.36 - 1.02 10*3/uL EOS x10^3 <0.03 (L) 0.06 - 0.53 10*3/uL BASO x10^3 <0.03 0.01 - 0.09 10*3/uL Current Facility-Administered Medications: penicillin v potassium (PEN-VEE K) tablet 500 mg, 500 mg, Oral, Q8H, Rita Hummel, ACNP, 500 mg at 10/16/19 0523 acetaminophen (TYLENOL) tablet 650 mg, 650 mg, Oral, Q6HPRN, Kaela Person MD amLODIPine (NORVASC) tablet 2.5 mg, 2.5 mg, Oral, DAILY, Rita Hummel, ACNP , 2.5 mg at 10/16/19 0844 docusate (COLACE) capsule 100 mg, 100 mg, Oral, QDAILYPRJosé, Kaela Person MD finasteride (PROSCAR) tablet 5 mg, 5 mg, Oral, DAILY, Rita Hummel, ACNP, 5 mg at 10/16/19 0844 gabapentin (NEURONTIN) capsule 300 mg, 300 mg, Oral, QHS, Rita Hummel, ACN P, 300 mg at 10/15/194 heparin (porcine) injection 5,000 Units, 5,000 Units, Subcutaneous, Q12H, S amRita lundberg, ACNP, 5,000 Units at 10/16/19 0844 hydralAZINE (APRESOLINE) injection 10 mg, 10 mg, Intravenous, Q6HPRN, Mikey toledo, Rita, ACNP losartan (COZAAR) tablet 50 mg, 50 mg, Oral, DAILY, Ben Hummely, ACNP, 50 mg at 10/16/19 0844 ondansetron (ZOFRAN (PF)) injection 4 mg, 4 mg, Slow IV Push, Q6HPRN, Raza , Kaela, MD pantoprazole (PROTONIX) EC tablet 40 mg, 40 mg, Oral, DAILY, Rita Hummel, ACNP, 40 mg at 10/16/19 0844 predniSONE (DELTASONE) tablet 10 mg, 10 mg, Oral, QAM WITH BREAKFAST, Ben Weinery, ACNP, 10 mg at 10/16/19 0844 sulfamethoxazole-trimethoprim (BACTRIM SS) 400-80 mg per tablet 1 tablet, 1 tablet, Oral, DAILY, Rita Hummel, ACNP, 1 tablet at 10/16/19 0844 tamsulosin (FLOMAX) capsule 0.4 mg, 0.4 mg, Oral, BID, ShaheedBen lundbergy, ACNP, 0.4 mg at 10/16/19 0844 ASSESSMENT AND PLAN 1. BLE weakness - Patient with history of lumbar stenosis s/p surgery who presents with BLE wea kness. Seen by Dr. Monahan and I discussed the case with him. Patient had recent MR I that showed epidural fluid buildup that is causing impingement. Consult neuros urgery for eval. 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 Dr. Monahan does not believe current issues are related to this. Continue steroids. 3. Acute Cystitis. - On PO abx. Follow cultures. 4. Leukocytosis. - Likely due to UTI/steroids. - Continue monitoring. 5. HTN - BP controlled. Continue home meds and monitor. 6. DVT ppx - Heparin. DISPO -Await eval by neurosurgery. - Await eval by 3/4 - CSF fluid collection/Weakness - Seen by nsgy and offered patient 3 options a nd patient elected for IR drainage. Will consult IR for this. - Weakness - Continue PT and OT. Likely SNF from here. - Acute cystitis - Continue abx, cultures pending - DC planning to SNF after procedure FLOR[facility] Vie[facility] [phone] TLER Sandra Araya RN - 10/15/2019 2:09 PM SHUTTLER Matt Cisneros [id number] RE: Care Management Patient Choice Notification Your doctor has recommended that you have post-hospital care services at [facility], [place]. You can choose the provider you want, regardless of its relationship with [facility]. We will contact any of the agencies within the [facility] network, or any other agency upon your request. The hospital must assist patients, their families, or the patients customer support representative in selecting a post-acute care provider by using and sharing data that includes, but is not limited to, Home Health Agencies, [facility] Nursing Facilities, Inpatient Rehab, or [facility], [facility] data on quality measures and data on resource use measures. Based on where you live and agency service areas, a list was generated from: Your insurance company's in-network provider list Disclosure: [facility] owns or is affiliated with the following facilities/agencies: [facility] (usp and rehabilitati on) Patient Choice Acknowledgement I, Matt Blayne / authorized customer support representative, am aware that I have choice in s electing post-hospital care providers. [facility] has given me a list of provi ders in the area available to me and/or my authorized customer support representative. My choice( s) are listed below: ? SNF/LTC: [facility] Your signature on this form indicates that you have been given the following inf ormation: I have been advised of my right to choose the providers I wish ? If usp facilities, long-term acute care hospitals, or home health agencies were recommended, I was given a list of facilities/agencies in my [facility] area that deliver these services or ? I have pre-selected or am an established client with a facility/agency and cho ose to initiate/continue services 10/15/19 Patient/Guardian/Responsible Green Party Signature Date Signed copy placed on chart to be scanned into Electronic Medical Record TLER * Sandra Weiner RN - 10/15/2019 2:07 PM SHUTTLER Care Management Social Functional Assessment Patient Name: Matt Cisneros Age: [age] year old Sex: male N Previous admit date: N/A Current diagnosis and co-morbidities: Generalized weakness Readmission Questions: Was patient discharged from any acute care hospital within the last 30 days: No Social Functional Assessment: Primary language spoken/preferred: Sudanese Mental Status: Alert & Oriented to Person,Place & Time Information given by: Self Patient's support system: Spouse Name and number of support system: Jessica Cisneros (spouse) [phone] Primary Marketing Technologist: Self MPOA: Same as support system Living Arrangement: Home Address of living arrangement : [facility] Persons living in home: Self;Same as support system Barriers to returning home: None Baseline functional status- ambulation: Independent Functional status-baseline personal care: Independent Baseline functional status- driving: Independent Baseline functional status- grocery shopping: Independent Functional status-baseline housekeeping: Independent Functional status-baseline meal prep: Independent Current functional status same as prior: No Current functional status- ambulation: Requires minimal to moderate assistance Current functional status- personal care: Requires minimal to moderate assistanc e Current functional status- driving: Requires minimal to moderate assistance Current functional status- grocery shopping: Requires minimal to moderate assist ance Current functional status-house keeping: Requires minimal to moderate assistance Current functional status- meal preparation: Requires minimal to moderate assist ance Do you have a PCP?: Yes Name of PCP: Dr. Erik Rogel Home Health Care Agency: Yes Name of Home Health Agency: Other Name of other Home Health Agency: [facility] P: [phone] Previous or current Home Health Care Agency: Current Provider Services: No DME Company: No Equipment: Rollator Hemodialysis: No Community resources utilized: SSA/SSI/Medicaid Funding Resources: Medicare Replacement Medicare Replacement name and information: [facility] Anticipated services prior to disharge: Continue Medical Eval Expected mode of discharge transportation: Wheelchair van Additional Recommendations for DC: Pt lives at [facility] and would like to g o to SNF at [facility] for therapy. CM faxed referral Additional info required for discharge planning: Pending medical evaluation;Pend ing P/T O/T recommendation Recommended discharge plan: New placement SFA Complete: Social Functional Assessment complete: Yes Alcohol Use Screening (AUDIT-C) How often do you have a drink containing alcohol?: Never SCORE: 0 Role of Care Management explained. Snadra Weiner RN, BSN [employer]- [facility] Department of Care Management O [phone] Kayode [email or web address] F [phone] TLER * Dennis Clay FNP - 10/15/2019 11:26 AM SHUTTLER AMG PROGRESS NOTE SUBJECTIVE - REVIEW OF SYSTEMS Review of Systems Musculoskeletal: Negative for back pain. Neurological: Positive for weakness. All other systems reviewed and are negative. OBJECTIVE Vitals: 10/15/19 0000 10/15/19 0021 10/15/19 0400 10/15/19 0742 BP: 122/55 110/60 107/58 Pulse: 81 70 67 66 Resp: 18 23 16 18 Temp: 36.7 C (98 F) 36.9 C (98.4 F) 36 C (96.8 F) TempSrc: Oral Oral Axillary SpO2: 90% 93% 94% 94% Weight: Height: PHYSICAL EXAM Physical Exam Constitutional: He is oriented to person, place, and time and well-developed, we ll-nourished, and in no distress. HENT: Head: Normocephalic and atraumatic. Right Ear: External ear normal. Left Ear: External ear normal. Nose: Nose normal. Mouth/Throat: Oropharynx is clear and moist. Eyes: Pupils are equal, round, and reactive to light. Conjunctivae and EOM are n ormal. Neck: Normal range of motion. Neck supple. Cardiovascular: Normal rate, regular rhythm, normal heart sounds and intact dist al pulses. Pulmonary/Chest: Effort normal and breath sounds normal. Abdominal: Soft. Bowel sounds are normal. Neurological: He is alert and oriented to person, place, and time. GCS score is 15. Skin: Skin is warm and dry. Psychiatric: Mood, memory, affect and judgment normal. Recent Results (from the past 24 hour(s)) N-TERMINAL PRO-BNP Collection Time: 10/14/19 6:14 PM Result Value Ref Range NT-proBNP 475 (H) <=450 pg/mL CBC WITH DIFFERENTIAL Collection Time: 10/14/19 6:14 PM Result Value Ref Range WBC 17.43 (H) 4.20 - 10.70 10*3/L RBC 4.53 4.26 - 5.52 10*6/L HGB 13.5 12.2 - 16.4 g/dL HCT 41.9 38.4 - 49.3 % MCV 92.5 81.7 - 95.6 fL MCH 29.8 26.1 - 32.7 pg MCHC 32.2 31.2 - 35.0 g/dL RDW-SD 46.5 38.5 - 51.6 fL RDW-CV 13.6 12.1 - 15.4 % PLT 155 150 - 328 10*3/L MPV 9.3 (L) 9.8 - 13.0 fL NRBC/100 WBC 0.0 0.0 - 10.0 /100 WBCs NRBC x10^3 <0.01 10*3/L GRAN MAT (NEUT) % 86.6 % IMM GRAN % 0.90 % LYMPH % 4.5 % MONO % 7.8 % EOS % 0.0 % BASO % 0.2 % GRAN MAT x10^3(ANC) 15.10 (H) 1.99 - 6.95 10*3/uL IMM GRAN x10^3 0.15 (H) 0.00 - 0.06 10*3/uL LYMPH x10^3 0.79 (L) 1.09 - 3.23 10*3/uL MONO x10^3 1.36 (H) 0.36 - 1.02 10*3/uL EOS x10^3 <0.03 (L) 0.06 - 0.53 10*3/uL BASO x10^3 0.03 0.01 - 0.09 10*3/uL Basic Metabolic Panel (NA, K, CL, CO2, GLUCOSE, BUN, CREATININE, CA) Collection Time: 10/14/19 6:48 PM Result Value Ref Range NA 133 (L) 135 - 145 mmol/L K 4.3 3.5 - 5.0 mmol/L CL 101 98 - 108 mmol/L CO2 TOTAL 26 23 - 31 mmol/L AGAP 6 2 - 16 BUN 23 7 - 23 mg/dL GLUCOSE 116 (H) 70 - 110 mg/dL CREATININE 1.19 0.60 - 1.25 mg/dL CALCIUM 10.0 8.6 - 10.6 mg/dL eGFR Calculation (Non-) 57.8 mL/min/1.73m2 eGFR Calculation () 70.1 mL/min/1.73m2 Hepatic Function Panel (ALB, T.PRO, BILI T, BU/BC, ALT, AST, ALK PHOS) Collection Time: 10/14/19 6:48 PM Result Value Ref Range TOTAL BILI 1.0 0.1 - 1.1 mg/dL BILI UNCON 1.0 0.1 - 1.1 mg/dL BILI CONJ 0.0 0.0 - 0.3 mg/dL T PROTEIN 5.6 (L) 6.3 - 8.2 g/dL ALBUMIN 3.1 (L) 3.5 - 5.0 g/dL ALK PHOS 51 34 - 122 U/L ALTv 14 5 - 50 U/L AST(SGOT) 19 13 - 40 U/L Troponin I Collection Time: 10/14/19 6:48 PM Result Value Ref Range TROPONIN I 0.006 <=0.034 ng/mL Lactic Acid Whole Blood Collection Time: 10/14/19 7:02 PM Result Value Ref Range LACTIC ACID 0.93 0.50 - 2.20 mmol/L Blood Culture Collection Time: 10/14/19 7:09 PM Result Value Ref Range Blood Culture-Aerobic Culture In Progress No growth Blood Culture-Anaerobic Culture In Progress No growth Urinalysis Collection Time: 10/14/19 7:19 PM Result Value Ref Range APPEARANCE Hazy (A) Clear COLOR Yellow Yellow PH 7.0 4.8 - 8.0 SP GRAVITY 1.009 1.003 - 1.030 GLU U QUAL Normal Normal BLOOD 1+ (A) Negative KETONES Negative Negative PROTEIN Negative Negative UROBILIN Normal Normal BILIRUBIN Negative Negative NITRITE Positive (A) Negative LEUK LOIS 250/uL (A) Negative RBC/HPF 3 0 - 3 HPF WBC/HPF 23 (H) 0 - 5 HPF BACTERIA Moderate (A) Negative AMORPHOUS Few (A) Rare HPF BASIC METABOLIC PANEL (NA, K, CL, CO2, GLUCOSE, BUN, CREATININE, CA) Collection Time: 10/14/19 9:57 PM Result Value Ref Range NA 132 (L) 135 - 145 mmol/L K 4.4 3.5 - 5.0 mmol/L CL 100 98 - 108 mmol/L CO2 TOTAL 24 23 - 31 mmol/L AGAP 8 2 - 16 BUN 23 7 - 23 mg/dL GLUCOSE 185 (H) 70 - 110 mg/dL CREATININE 1.17 0.60 - 1.25 mg/dL CALCIUM 9.7 8.6 - 10.6 mg/dL eGFR Calculation (Non-) 59.0 mL/min/1.73m2 eGFR Calculation () 71.5 mL/min/1.73m2 TROPONIN I Collection Time: 10/14/19 9:57 PM Result Value Ref Range TROPONIN I 0.006 <=0.034 ng/mL Troponin I Collection Time: 10/15/19 3:56 AM Result Value Ref Range TROPONIN I 0.006 <=0.034 ng/mL Current Facility-Administered Medications: penicillin v potassium (PEN-VEE K) tablet 500 mg, 500 mg, Oral, Q8H, Rita Hummel, ACNP, 500 mg at 10/15/19 0600 acetaminophen (TYLENOL) tablet 650 mg, 650 mg, Oral, Q6HPRN, Kaela Person MD amLODIPine (NORVASC) tablet 2.5 mg, 2.5 mg, Oral, DAILY, Rita Hummel ACNP docusate (COLACE) capsule 100 mg, 100 mg, Oral, QDAILYPRN, Kaela Person MD finasteride (PROSCAR) tablet 5 mg, 5 mg, Oral, DAILY, Rita Hummel, ACNP, 5 mg at 10/15/19 0905 gabapentin (NEURONTIN) capsule 300 mg, 300 mg, Oral, QHS, Rita Hummel, ACN P heparin (porcine) injection 5,000 Units, 5,000 Units, Subcutaneous, Q12H, S amRita lundberg, ACNP hydralAZINE (APRESOLINE) injection 10 mg, 10 mg, Intravenous, Q6HPRN, Rita Weiner, ACNP losartan (COZAAR) tablet 50 mg, 50 mg, Oral, DAILY, Rita Hummel, ACNP ondansetron (ZOFRAN (PF)) injection 4 mg, 4 mg, Slow IV Push, Q6HPRN, Kaela Person MD pantoprazole (PROTONIX) EC tablet 40 mg, 40 mg, Oral, DAILY, Rita Hummel, ACNP predniSONE (DELTASONE) tablet 10 mg, 10 mg, Oral, QAM WITH BREAKFAST, Rita Weiner, ACNP, 10 mg at 10/15/19 0905 sulfamethoxazole-trimethoprim (BACTRIM SS) 400-80 mg per tablet 1 tablet, 1 tablet, Oral, DAILY, Shaheed, Rita, ACNP, 1 tablet at 10/15/19904 tamsulosin (FLOMAX) capsule 0.4 mg, 0.4 mg, Oral, BID, Shaheed, Rita, ACNP, 0.4 mg at 10/15/19 09 ASSESSMENT AND PLAN 1. BLE weakness - Patient with history of lumbar stenosis s/p surgery who presents with BLE wea kness. Seen by Dr. Monahan and I discussed the case with him. Patient had recent MR I that showed epidural fluid buildup that is causing impingement. Consult neuros urgery for eval. 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 Dr. Monahan does not believe current issues are related to this. Continue steroids. 3. Acute Cystitis. - On PO abx. Follow cultures. 4. Leukocytosis. - Likely due to UTI/steroids. - Continue monitoring. 5. HTN - BP controlled. Continue home meds and monitor. 6. DVT ppx - Heparin. DISPO -Await eval by neurosurgery. - Await eval by [facility] [phone] TLER documented in this encounter Plan of Treatment Order Schedule Name Type Priority Associated Diag noses STAT for 1 Occurrences starting 10/14/19 Lactic Acid Whole Blood LAB Routine Weakne ss ONCE for 1 Occurrences starting 10/16/19 20 until 10/16/2019 EKG-12 LEAD ROUTINE HEART STATION Routine ONCE for 1 Occurrences starting 10/17/19 20 until 10/17/2019 TRANSFERRIN LAB Routine Health Maintenance Due Date Last Done Comments DTaP,Tdap,and Td Vaccines 12/28/1941 (1 - Tdap) Zoster Recombinant 12/28/1981 Vaccine (SHINGRIX) (1 of 2) Medicare Wellness Visit 12/28/1996 PNEUMOCOCCAL VACCINES 65+ 12/28/1996 (1 of 2 - PCV13) INFLUENZA VACCINE (#1) 2019 documented as of this encounter Procedures Comments Procedure Name Priority Date/Time Associated Diag nosis BASIC METABOLIC PANEL Routine 10/18/2019 (NA, K, CL, CO2, GLUCOSE, 6:25 AM SHUTTLER BUN, CREATININE, CA) CBC WITH DIFFERENTIAL Routine 10/18/2019 6:24 AM SHUTTLER CBC WITH DIFFERENTIAL Routine 10/18/2019 6:24 AM SHUTTLER IR SPINAL ASPIRATION Routine 10/17/2019 Lumbar ba ck pain NUCLEUS PULPOSUS 12:11 PM SHUTTLER CSF CULTURE Routine 10/17/2019 11:57 AM SHUTTLER BODY FLUID DIRECT COUNT Routine 10/17/2019 11:57 AM SHUTTLER BODY FLUID MANUAL DIFF Routine 10/17/2019 11:57 AM SHUTTLER 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 [employer] SHUNT CULTURE Routine 10/17/2019 11:57 AM SHUTTLER BODY FLUID DIRECT COUNT Routine 10/17/2019 11:57 AM SHUTTLER CEREBROSPINAL FLUID Routine 10/17/2019 GLUCOSE 11:56 AM SHUTTLER CEREBROSPINAL FLUID Routine 10/17/2019 PROTEIN 11:56 AM SHUTTLER CBC WITH DIFFERENTIAL Routine 10/15/2019 3:16 PM SHUTTLER CBC WITH DIFFERENTIAL Routine 10/15/2019 3:16 PM SHUTTLER TROPONIN I Routine 10/15/2019 3:15 PM SHUTTLER TROPONIN I Routine 10/15/2019 3:56 AM SHUTTLER BASIC METABOLIC PANEL Routine 10/14/2019 (NA, K, CL, CO2, GLUCOSE, 9:57 PM SHUTTLER BUN, CREATININE, CA) TROPONIN I Routine 10/14/2019 9:57 PM SHUTTLER URINE CULTURE STAT 10/14/2019 Weakness 7:19 PM SHUTTLER URINALYSIS STAT 10/14/2019 Weakness 7:19 PM SHUTTLER BLOOD CULTURE SCREEN NEYMAR 10/14/2019 Leukocyto sis, unspecified 7:09 PM SHUTTLER type LACTIC ACID WHOLE BLOOD STAT 10/14/2019 Weakne ss 7:02 PM SHUTTLER BASIC METABOLIC PANEL STAT 10/14/2019 Weakness (NA, K, CL, CO2, GLUCOSE, 6:48 PM SHUTTLER BUN, CREATININE, CA) HEPATIC FUNCTION PANEL STAT 10/14/2019 Weaknes s (05999) (ALB,T.PRO,BILI 6:48 PM SHUTTLER T,BU/BC,ALT,AST,ALK PHOS) TROPONIN I STAT 10/14/2019 Weakness 6:48 PM SHUTTLER CBC WITH DIFFERENTIAL STAT 10/14/2019 Weakness 6:14 PM SHUTTLER N-TERMINAL PRO-BNP STAT 10/14/2019 Weakness 6:14 PM SHUTTLER CBC WITH DIFFERENTIAL Routine 10/14/2019 Weakness 6:14 PM SHUTTLER XR CHEST 2 VW STAT 10/14/2019 Weakness 4:53 PM SHUTTLER HOSPITAL ADMISSION MISC - Routine 10/14/2019 MEDICARE PATIENTS RIGHTS 12:01 AM SHUTTLER IMPORTANT MESSAGE documented in this encounter Results * BASIC METABOLIC PANEL (NA, K, CL, CO2, GLUCOSE, BUN, CREATININE, CA) (10/18/2019 6:25 AM SHUTTLER) NA 137 135 - 145 mmol/L [facility] K 4.5 3.5 - 5.0 mmol/L [facility] CL 107 98 - 108 mmol/L [facility] CO2 TOTAL 25 23 - 31 mmol/L [facility] AGAP 5 2 - 16 [facility] BUN 17 7 - 23 mg/dL [facility] GLUCOSE 95 70 - 110 mg/dL [facility] CREATININE 1.05 0.60 - 1.25 mg/dL [facility] CALCIUM 10.0 8.6 - 10.6 mg/dL [facility] eGFR 66.8 mL/min/1.73m2 [facility] Calculation SERVICES-CLEAR ([facility] [place]) eGFR 81.0 mL/min/1.73m2 [facility] Calculation SERVICES-CLEAR ([facility]) Specimen Blood - ARM, LEFT Narrative Performed At Association of Glomerular Filtration Rate (GFR) and S taging of Kidney Disease* [facility] + + +------ + SERVICES-[facility] [place] | GFR (mL/min/1.73 m2) | With Kidney Damage | [facility] Kidney Damage [place] + + -------+ + | >90 | S tage one | Normal + + -------+ + | 60-89 | St age two | Decreased GFR + + -------+ + | 30-59 | St age three | Stage three + + -------+ + | 15-29 | St age four | Stage four + + -------+ + | <15 (or dialysis) | Stage fi ve | Stage five + + -------+ + *Each stage assumes the associated GFR level has been in effect for at least three months. Stages 1 to 5, with or without kidney disease, indicate chronic kidney disease. Notes: Determination of stages one and two (with eGFR >59mL/min/1.73 m2) requires estimation of kidney damage fo r at least three months as defined by structural or functional abnormalities of the kidney, manifested by either: Pathological abnormalities or Markers o f kidney damage (including abnormalities in the composition of the blood or urin e or abnormalities in imaging tests). Performing Organization Address City/State/Zipcode Ph one Number [facility] CLIA: [id number], [address] [place], [place] [address] [facility] * CBC WITH DIFFERENTIAL (10/18/2019 6:24 AM SHUTTLER) WBC 7.33 4.20 - 10.70 [facility] 10*3/L [facility] RBC 4.01 (L) 4.26 - 5.52 10*6/L [facility] HGB 12.0 (L) 12.2 - 16.4 g/dL [facility] HCT 37.7 (L) 38.4 - 49.3 % [facility] MCV 94.0 81.7 - 95.6 fL [facility] MCH 29.9 26.1 - 32.7 pg [facility] MCHC 31.8 31.2 - 35.0 g/dL [facility] RDW-SD 46.5 38.5 - 51.6 fL [facility] RDW-CV 13.4 12.1 - 15.4 % [facility] PLT 165 150 - 328 10*3/L [facility] MPV 8.9 (L) 9.8 - 13.0 fL [facility] NRBC/100 WBC 0.0 0.0 - 10.0 /100 WBCs [facility] NRBC x10^3 <0.01 10*3/L [facility] GRAN MAT (NEUT) 68.9 % [facility] IMM GRAN % 1.00 % [facility] LYMPH % 17.5 % [facility] MONO % 10.5 % [facility] EOS % 1.8 % [facility] BASO % 0.3 % [facility] GRAN MAT 5.06 1.99 - 6.95 10*3/uL [facility] x10^3(ANC) [facility] IMM GRAN x10^3 0.07 (H) 0.00 - 0.06 10*3/uL [facility] LYMPH x10^3 1.28 1.09 - 3.23 10*3/uL [facility] MONO x10^3 0.77 0.36 - 1.02 10*3/uL [facility] EOS x10^3 0.13 0.06 - 0.53 10*3/uL [facility] BASO x10^3 <0.03 0.01 - 0.09 10*3/uL [facility] Specimen Blood - ARM, LEFT Performing Organization Address City/State/Zipcode Ph one Number [facility] CLIA: [id number], [address] [place], [place] [address] [facility] * IR SPINAL ASPIRATION NUCLEUS PULPOSUS (10/17/2019 12:11 PM SHUTTLER) Specimen Impressions Performed At Successful aspiration of 15 mL of serous sinus fluid from the known PACS/VR/DOSE collection in the laminectomy bed of th e lumbar spine. Mary Underwood was physically prese nt and participated during the entire procedure of the IR SPINAL ASPIR ATION NUCLEUS PULPOSUS. Narrative Performed At HISTORY: fluid Drainage of spinal abscess PACS/VR/ DOSE SEDATION: None, Local anesthesia. ATTENDING PRESENCE: As the attending radiologist, I actively participated and was physically present in the room during the entire procedure. RADIATION DOSE: 1.2 mGy. TECHNIQUE: The risks, benefits and alte rnatives were discussed and informed consent was obtained. Prior to beginnin g the procedure, [place] Protocol was performed to confirm the patient's identity and the planned procedure. An outside MRI was reviewed and a large fluid collection was seen spanning the laminectomy bed. A limited ultrasou nd was performed in the region of the collection and fluid at this site w as confirmed. Maximum sterile barriers including cap, mask, hand hygiene, sterile gloves, sterile gown, large sterile drape and c utaneous antisepsis were used. Pain assessment was performed and pain mapping was performed on a dermatome map. The patient was placed in the pron e position and the lower back was sterilely prepped and draped. Using flu oroscopic guidance, an entry site was marked and 1% buffered lidocaine wa s administered subcutaneously for local anesthesia. Using a 21-gauge, 2.5 cm needle, the si te was accessed and 15 mL of serosanguineous fluid was evacuated. e needle was withdrawn and pressure applied. The patient tolerated the procedure wel l without difficulty and had no immediate postprocedural complications. ESTIMATED BLOOD LOSS: Minimal. CONDITION: Stable. DISCHARGED TO: Patient care division. Procedure Note [facility], Radiant Results Inft User - 10/17/2019 2:17 PM SHUTTLER HISTORY: fluid Drainage of spinal abscess SEDATION: None, Local anesthesia. ATTENDING PRESENCE: As the attending radiologist, I actively participated and was physically present in the room during the entire procedure. RADIATION DOSE: 1.2 mGy. TECHNIQUE: The risks, benefits and alternatives were discussed and informed consent was obtained. Prior to beginning the procedure, [place] Protocol was performed to confirm the patient's identity and the planned procedure. An outside MRI was reviewed and a large fluid collection was seen spanning the laminectomy bed. A limited ultrasound was performed in the region of the collection and fluid at this site was confirmed. Maximum sterile barriers including cap, mask, hand hygiene, sterile gloves, sterile gown, large sterile drape and cutaneous antisepsis were used. Pain assessment was performed and pain mapping was performed on a dermatome map. The patient was placed in the prone position and the lower back was sterilely prepped and draped. Using fluoroscopic guidance, an entry site was marked and 1% buffered lidocaine was administered subcutaneously for local anesthesia. Using a 21-gauge, 2.5 cm needle, the site was accessed and 15 mL of serosanguineous fluid was evacuated. The needle was withdrawn and pressure applied. The patient tolerated the procedure well without difficulty and had no immediate postprocedural complications. ESTIMATED BLOOD LOSS: Minimal. CONDITION: Stable. DISCHARGED TO: Patient care division. IMPRESSION Successful aspiration of 15 mL of serous sinus fluid from the known collection in the laminectomy bed of the lumbar spine. IMary was physically present and participated during the entire procedure of the IR SPINAL ASPIRATION NUCLEUS PULPOSUS. Performing Organization Address [facility] Ph one Number PACS/VR/DOSE * BODY FLUID MANUAL DIFF (10/17/2019 11:57 AM SHUTTLER) BF SEGS 65 (H) 0 - 7 % [facility] BF LYMPHS 17 (L) 28 - 96 % [facility] MACROPHAGE 18 16 - 56 % [facility] #CELS CNTD 100 [facility] Specimen Cerebrospinal Fluid - CEREBRAL SPINAL FLUID Performing Organization Address City/[facility] Ph one Number [facility] CLIA: [id number], [address] [place], [place] [address] [facility] * BODY FLUID DIRECT COUNT (10/17/2019 11:57 AM SHUTTLER) BF COLOR Bloody [facility] BF WBC Count 14 (H) 0 - 5 /L [facility] BF RBC Count 11,000 /L [facility] Specimen Cerebrospinal Fluid - CEREBRAL SPINAL FLUID Performing Organization Address City/[facility] Ph one Number [facility] CLIA: [id number], [address] [place] [phone] [facility] * CSF CULTURE (10/17/2019 11:57 AM SHUTTLER) CSF CULTURE No organisms isolated [facility] Gram stain Few PMNs or Mononuclear cells [facility] observed [facility] Gram stain No Organisms seen [facility] [facility] Specimen Cerebrospinal Fluid - LUMBAR PUNCTURE Performing Organization Address [facility] Ph one Number [facility] CLIA: [id number], [address] [place] [address] [facility] LABORATORY CLIA: [id number], [address] [address] 98 [facility] * CEREBROSPINAL FLUID PROTEIN (10/17/2019 11:56 AM SHUTTLER) T. PRO CSF 69.0 (H) 15.0 - 45.0 mg/dL [facility] ORY SERVICES-[facility] UNSPUN BODY Bloody [facility] FLUID COLOR SERVICES-[facility] UNSPUN BODY Turbid [facility] FLUID [facility] SPUN BODY FLUID Light Yellow [facility] SPUN BODY FLUID Clear [facility] Sediment The sediment volume is <0.5 [facility]ATORY mLs of the total fluid volume SERVICES-CLEAR of 7 and its color is red. [facility] Specimen Cerebrospinal Fluid - LUMBAR PUNCTURE Performing Organization Address [facility] Ph one Number [facility] CLIA: [id number], [address] [address] 98 [facility] * CEREBROSPINAL FLUID GLUCOSE (10/17/2019 11:56 AM SHUTTLER) GLU CSF 104 (H) 50 - 80 mg/dL [facility] SERVICES-[facility] [place] UNSPUN BODY Bloody [facility] FLUID COLOR SERVICES-[facility] UNSPUN BODY Turbid [facility] FLUID CLARITY SERVICES-[facility] SPUN BODY FLUID Light Yellow [facility] COLOR [facility] SPUN BODY FLUID Clear [facility] CLARITY [facility] Sediment The sediment volume is <0.5 [facility] mLs of the total fluid volume [facility] of 7 and its color is red. [facility] Specimen Cerebrospinal Fluid - LUMBAR PUNCTURE Performing Organization Address City/State/Zipcode Ph one Number [facility] CLIA: [id number], [address] [place], [place] [address] [facility] * CBC WITH DIFFERENTIAL (10/15/2019 3:16 PM SHUTTLER) WBC 10.38 4.20 - 10.70 [facility] 10*3/L [facility] RBC 4.26 4.26 - 5.52 10*6/L [facility] HGB 12.3 12.2 - 16.4 g/dL [facility] HCT 39.2 38.4 - 49.3 % [facility] MCV 92.0 81.7 - 95.6 fL [facility] MCH 28.9 26.1 - 32.7 pg [facility] MCHC 31.4 31.2 - 35.0 g/dL [facility] RDW-SD 46.7 38.5 - 51.6 fL [facility] RDW-CV 13.6 12.1 - 15.4 % [facility] PLT 153 150 - 328 10*3/L [facility] LABORA TORY [facility] MPV 9.6 (L) 9.8 - 13.0 fL [facility] NRBC/100 WBC 0.0 0.0 - 10.0 /100 WBCs [facility] NRBC x10^3 <0.01 10*3/L [facility] GRAN MAT (NEUT) 89.4 % [facility] LABORATOR Y % [facility] IMM GRAN % 0.70 % [facility] LYMPH % 5.0 % [facility] MONO % 4.7 % [facility] EOS % 0.1 % [facility] BASO % 0.1 % [facility] GRAN MAT 9.28 (H) 1.99 - 6.95 10*3/uL [facility] LABOR ATORY x10^3(ANC) [facility] IMM GRAN x10^3 0.07 (H) 0.00 - 0.06 10*3/uL [facility] LABOR ATORY [facility] LYMPH x10^3 0.52 (L) 1.09 - 3.23 10*3/uL [facility] LABOR ATORY [facility] MONO x10^3 0.49 0.36 - 1.02 10*3/uL [facility] LABOR ATORY [facility] EOS x10^3 <0.03 (L) 0.06 - 0.53 10*3/uL [facility] LABOR [facility] BASO x10^3 <0.03 0.01 - 0.09 10*3/uL [facility] Specimen Blood - HAND, RIGHT Performing Organization Address City/State/Zipcode Ph one Number [facility] CLIA: [id number], [address] [place], [place] [address] [facility] * Troponin I (10/15/2019 3:15 PM SHUTTLER) TROPONIN I 0.004 <=0.034 ng/mL [facility] Specimen Blood - HAND, RIGHT Narrative Performed At Equal or Less than 0.034 ng/ml---Normal [facility] Note: Cardiac troponin begins to rise 3-4 hours after the onset of ischemia. [facility] Repeat in 4-6 hours if the sample was d rawn within 3-4 hours of the onset of the CAMPUS symptom and found normal. Between 0.035 and 0.120 ng/mL--- Border line. Questionable myocardial injury or necrosis Note: Serial measurement may be necessa ry to confirm or exclude the diagnosis of myocardial injury or necrosis; Clinical correlation (symptoms, EKGs, imaging studies, and others) required; Repeat i n 4-6 hours if clinically indicated. Equal or Higher than 0.121 ng/mL---Abno rmal. Myocardial Injury or Necrosis Likely Biotin has been reported to cause a neg ative bias, interpret results relative to patient's use of biotin. Performing Organization Address [facility] one Number [facility] CLIA: [id number], [address] [phone] 98 [facility] * Troponin I (10/15/2019 3:56 AM SHUTTLER) TROPONIN I 0.006 <=0.034 ng/mL [facility] Specimen Blood - ARM, LEFT Narrative Performed At Equal or Less than 0.034 ng/ml---Normal [facility] Note: Cardiac troponin begins to rise 3-4 hours after the onset of ischemia. [facility] Repeat in 4-6 hours if the sample was d rawn within 3-4 hours of the onset of the [place] symptom and found normal. Between 0.035 and 0.120 ng/mL--- Border line. Questionable myocardial injury or necrosis Note: Serial measurement may be necessa ry to confirm or exclude the diagnosis of myocardial injury or necrosis; Clinical correlation (symptoms, EKGs, imaging studies, and others) required; Repeat i n 4-6 hours if clinically indicated. Equal or Higher than 0.121 ng/mL---Abno rmal. Myocardial Injury or Necrosis Likely Biotin has been reported to cause a neg ative bias, interpret results relative to patient's use of biotin. Performing Organization Address [facility] one Number [facility] CLIA: [id number], [address] [address] [facility] * TROPONIN I (10/14/2019 9:57 PM SHUTTLER) TROPONIN I 0.006 <=0.034 ng/mL [facility] Specimen Blood - ARM, RIGHT Narrative Performed At Equal or Less than 0.034 ng/ml---Normal [facility] Note: Cardiac troponin begins to rise 3-4 hours after the onset of ischemia. [facility] Repeat in 4-6 hours if the sample was d rawn within 3-4 hours of the onset of the CAMPUS symptom and found normal. Between 0.035 and 0.120 ng/mL--- Border line. Questionable myocardial injury or necrosis Note: Serial measurement may be necessa ry to confirm or exclude the diagnosis of myocardial injury or necrosis; Clinical correlation (symptoms, EKGs, imaging studies, and others) required; Repeat i n 4-6 hours if clinically indicated. Equal or Higher than 0.121 ng/mL---Abno rmal. Myocardial Injury or Necrosis Likely Biotin has been reported to cause a neg ative bias, interpret results relative to patient's use of biotin. Performing Organization Address City/State/Zipcode Ph one Number [facility] CLIA: [id number], [address] [place], [place] [address] [facility] * BASIC METABOLIC PANEL (NA, K, CL, CO2, GLUCOSE, BUN, CREATININE, CA) (10/14/2019 9:57 PM SHUTTLER) NA 132 (L) 135 - 145 mmol/L [facility] RY [facility] K 4.4 3.5 - 5.0 mmol/L [facility] RY [facility] CL 100 98 - 108 mmol/L [facility] Y [facility] CO2 TOTAL 24 23 - 31 mmol/L [facility] AGAP 8 2 - 16 [facility] BUN 23 7 - 23 mg/dL [facility] GLUCOSE 185 (H) 70 - 110 mg/dL [facility] CREATININE 1.17 0.60 - 1.25 mg/dL [facility] CALCIUM 9.7 8.6 - 10.6 mg/dL [facility] RY [facility] eGFR 59.0 mL/min/1.73m2 [facility] Calculation SERVICES-CLEAR (Non-[facility] [place]) eGFR 71.5 mL/min/1.73m2 [facility] Calculation SERVICES[facility] ([facility] [place]) Specimen Blood - ARM, RIGHT Narrative Performed At Association of Glomerular Filtration Rate (GFR) and S taging of Kidney Disease* [facility] + + +------ + SERVICES-[facility] | GFR (mL/min/1.73 m2) | With Kidney Damage | [facility] Kidney Damage CAMPUS + + -------+ + | >90 | S tage one | Normal + + -------+ + | 60-89 | St age two | Decreased GFR + + -------+ + | 30-59 | St age three | Stage three + + -------+ + | 15-29 | St age four | Stage four + + -------+ + | <15 (or dialysis) | Stage fi ve | Stage five + + -------+ + *Each stage assumes the associated GFR level has been in effect for at least three months. Stages 1 to 5, with or without kidney disease, indicate chronic kidney disease. Notes: Determination of stages one and two (with eGFR >59mL/min/1.73 m2) requires estimation of kidney damage fo r at least three months as defined by structural or functional abnormalities of the kidney, manifested by either: Pathological abnormalities or Markers o f kidney damage (including abnormalities in the composition of the blood or urin e or abnormalities in imaging tests). Performing Organization Address City/State/Zipcode Ph one Number [facility] CLIA: [id number], [address] [place], [place] [address] SERVICES-[facility] * URINE CULTURE (10/14/2019 7:19 PM SHUTTLER) URINE CULTURE >100,000 CFU/mL Escherichia [facility] coli SERVICES URINE CULTURE >100,000 CFU/mL Klebsiella [facility] AT[facility] pneumoniae SERVICES Specimen Urine - URINE, CLEAN CATCH Antibiotic Method Susceptibility Organism Amoxacillin/Clavulanic acid SUSCEPTIBILITY TESTING 8: Susceptible Escherichia coli Ampicillin SUSCEPTIBILITY TESTING >=32: Resistant Escherichia coli Ampicillin/Sulbactam SUSCEPTIBILITY TESTING 8: Susceptible Escherichia coli Cefazolin SUSCEPTIBILITY TESTING >=64: Resistant Escherichia coli Ceftriaxone SUSCEPTIBILITY TESTING >=64: Resistant Escherichia coli Ciprofloxacin SUSCEPTIBILITY TESTING >=4: Resistant Escherichia coli Ertapenem SUSCEPTIBILITY TESTING <=0.5: Susceptible Escherichia coli Gentamicin SUSCEPTIBILITY TESTING <=1: Susceptible Escherichia coli Imipenem SUSCEPTIBILITY TESTING <=0.25: Susceptible Escherichia coli Levofloxacin SUSCEPTIBILITY TESTING >=8: Resistant Escherichia coli Nitrofurantoin SUSCEPTIBILITY TESTING <=16: Susceptible Escherichia coli Piperacillin/Tazobactam SUSCEPTIBILITY TESTING <=4: Susceptible Escherichia coli Trimethoprim/Sulfamethoxazole SUSCEPTIBILITY TESTING >=320: Resistant Escherichia coli Comment: Susceptibility test results indicate that this organism may produce an extended-spectrum beta-lactamase and therefore may be clinically resistant to therapy with Penicillins, Cephalosporins, and Aztreonam. Nitrofurantoin is not recommended for use in treating pyelonephritis or systemic disease. Amoxacillin/Clavulanic acid SUSCEPTIBILITY TESTING 16: Intermediate Klebsiella pneumoniae Ampicillin SUSCEPTIBILITY TESTING >=32: Resistant Klebsiella pneumoniae Ampicillin/Sulbactam SUSCEPTIBILITY TESTING >=32: Resistant Klebsiella pneumoniae Cefazolin SUSCEPTIBILITY TESTING >=64: Resistant Klebsiella pneumoniae Ceftriaxone SUSCEPTIBILITY TESTING >=64: Resistant Klebsiella pneumoniae Ciprofloxacin SUSCEPTIBILITY TESTING >=4: Resistant Klebsiella pneumoniae Ertapenem SUSCEPTIBILITY TESTING <=0.5: Susceptible Klebsiella pneumoniae Gentamicin SUSCEPTIBILITY TESTING <=1: Susceptible Klebsiella pneumoniae Imipenem SUSCEPTIBILITY TESTING <=0.25: Susceptible Klebsiella pneumoniae Levofloxacin SUSCEPTIBILITY TESTING >=8: Resistant Klebsiella pneumoniae Nitrofurantoin SUSCEPTIBILITY TESTING 128: Resistant Klebsiella pneumoniae Piperacillin/Tazobactam SUSCEPTIBILITY TESTING 32: Intermediate Klebsiella pneumoniae Trimethoprim/Sulfamethoxazole SUSCEPTIBILITY TESTING >=320: Resistant Klebsiella pneumoniae Comment: Susceptibility test results indicate that this organism may produce an extended-spectrum beta-lactamase and therefore may be clinically resistant to therapy with Penicillins, Cephalosporins, and Aztreonam. Nitrofurantoin is not recommended for use in treating pyelonephritis or systemic disease. Performing Organization Address City/State/Zipcode Ph one Number [facility] CLIA: [id number], [address] [place] [address] [facility] * Urinalysis (10/14/2019 7:19 PM SHUTTLER) APPEARANCE Hazy (A) Clear [facility] SERVICES-[facility] COLOR Yellow Yellow [facility] PH 7.0 4.8 - 8.0 [facility] SERVICES-[facility] SP GRAVITY 1.009 1.003 - 1.030 [facility] SERVICES-[facility] GLU U QUAL Normal Normal [facility] BLOOD 1+ (A) Negative [facility] SERVICES-[facility] KETONES Negative Negative [facility] SERVICES-[facility] PROTEIN Negative Negative [facility] UROBILIN Normal Normal [facility] SERVICES-[facility] BILIRUBIN Negative Negative [facility] SERVICES-[facility] NITRITE Positive (A) Negative [facility] SERVICES-[facility] LEUK LOIS 250/uL (A) Negative [facility]AT[facility] SERVICES-[facility] RBC/HPF 3 0 - 3 HPF [facility] SERVICES-[facility] WBC/HPF 23 (H) 0 - 5 HPF [facility] SERVICES-[facility] BACTERIA Moderate (A) Negative [facility] SERVICES-[facility] AMORPHOUS Few (A) Rare HPF [facility] SERVICES[facility] Specimen Urine - URINE, CLEAN CATCH Performing Organization Address [facility] one Number [facility] CLIA: [id number], [address] [place], [place] [address] [facility] * Blood Culture (10/14/2019 7:09 PM SHUTTLER) Blood No organisms isolated No growth [facility] Culture-Aerobic Comment: [facility] Previous preliminary verified [facility] result was Culture In Progress on 10/15/2019 at 0101 SHUTTLER Previous preliminary verified result was No growth at 24 hours on 10/15/2019 at 2201 SHUTTLER Previous preliminary verified result was No growth at 48 hours on 10/16/2019 at 2201 SHUTTLER Previous preliminary verified result was No growth at 72 hours on 10/17/2019 at 2201 SHUTTLER Blood No organisms isolated No growth [facility] Culture-Anaerob Comment: [facility] Previous preliminary verified [facility] MPUS result was Culture In Progress on 10/15/2019 at 0101 SHUTTLER Previous preliminary verified result was No growth at 24 hours on 10/15/2019 at 2201 SHUTTLER Previous preliminary verified result was No growth at 48 hours on 10/16/2019 at 2201 SHUTTLER Previous preliminary verified result was No growth at 72 hours on 10/17/2019 at 2201 SHUTTLER Specimen Blood - ARM, LEFT Performing Organization Address [facility] one Number [facility] CLIA: [id number], [address] [place], [place] [address] [facility] * Lactic Acid Whole Blood (10/14/2019 7:02 PM SHUTTLER) LACTIC ACID 0.93 0.50 - 2.20 mmol/L [facility] JUICE GALEANA [facility] Specimen Blood - VENOUS Performing Organization Address [facility] one Number [facility] CLIA: [id number], [address] [place], [place] [address] [facility] * Troponin I (10/14/2019 6:48 PM SHUTTLER) TROPONIN I 0.006 <=0.034 ng/mL [facility] Specimen Blood - ARM, RIGHT Narrative Performed At Equal or Less than 0.034 ng/ml---Normal [facility] Note: Cardiac troponin begins to rise 3-4 hours after the onset of ischemia. [facility] Repeat in 4-6 hours if the sample was d rawn within 3-4 hours of the onset of the [place] symptom and found normal. Between 0.035 and 0.120 ng/mL--- Border line. Questionable myocardial injury or necrosis Note: Serial measurement may be necessa ry to confirm or exclude the diagnosis of myocardial injury or necrosis; Clinical correlation (symptoms, EKGs, imaging studies, and others) required; Repeat i n 4-6 hours if clinically indicated. Equal or Higher than 0.121 ng/mL---Abno rmal. Myocardial Injury or Necrosis Likely Biotin has been reported to cause a neg ative bias, interpret results relative to patient's use of biotin. Performing Organization Address [facility] Ph one Number [facility] CLIA: [id number], [address] [address] [facility] * Hepatic Function Panel (ALB, T.PRO, BILI T, BU/BC, ALT, AST, ALK PHOS) (10/14/2019 6:48 PM SHUTTLER) TOTAL BILI 1.0 0.1 - 1.1 mg/dL [facility] LABORATOR Y [facility] BILI UNCON 1.0 0.1 - 1.1 mg/dL [facility] LABORATOR Y [facility] BILI CONJ 0.0 0.0 - 0.3 mg/dL [facility]ORATOR Y [facility] T PROTEIN 5.6 (L) 6.3 - 8.2 g/dL [facility] ALBUMIN 3.1 (L) 3.5 - 5.0 g/dL [facility] ALK PHOS 51 34 - 122 U/L [facility] ALTv 14 5 - 50 U/L [facility] AST(SGOT) 19 13 - 40 U/L [facility] Specimen Blood - ARM, RIGHT Performing Organization Address [facility] Ph one Number [facility] CLIA: [id number], [address] [place], [place] [address] SERVICES[facility]AR [facility] * Basic Metabolic Panel (NA, K, CL, CO2, GLUCOSE, BUN, CREATININE, CA) (10/14/2019 6:48 PM SHUTTLER) NA 133 (L) 135 - 145 mmol/L [facility] K 4.3 3.5 - 5.0 mmol/L [facility] CL 101 98 - 108 mmol/L [facility] LABORATOR Y SERVICES-[facility] CO2 TOTAL 26 23 - 31 mmol/L [facility] AGAP 6 2 - 16 [facility] BUN 23 7 - 23 mg/dL [facility] GLUCOSE 116 (H) 70 - 110 mg/dL [facility] CREATININE 1.19 0.60 - 1.25 mg/dL [facility] CALCIUM 10.0 8.6 - 10.6 mg/dL [facility] eGFR 57.8 mL/min/1.73m2 [facility] Calculation SERVICES-CLEAR (Non-[facility] [place]) eGFR 70.1 mL/min/1.73m2 [facility] Calculation SERVICES-CLEAR ([facility] [place]) Specimen Blood - ARM, RIGHT Narrative Performed At Association of Glomerular Filtration Rate (GFR) and S taging of Kidney Disease* [facility] + + +------ + [facility] | GFR (mL/min/1.73 m2) | With Kidney Damage | [facility] Kidney Damage [place] + + -------+ + | >90 | S tage one | Normal + + -------+ + | 60-89 | St age two | Decreased GFR + + -------+ + | 30-59 | St age three | Stage three + + -------+ + | 15-29 | St age four | Stage four + + -------+ + | <15 (or dialysis) | Stage fi ve | Stage five + + -------+ + *Each stage assumes the associated GFR level has been in effect for at least three months. Stages 1 to 5, with or without kidney disease, indicate chronic kidney disease. Notes: Determination of stages one and two (with eGFR >59mL/min/1.73 m2) requires estimation of kidney damage fo r at least three months as defined by structural or functional abnormalities of the kidney, manifested by either: Pathological abnormalities or Markers o f kidney damage (including abnormalities in the composition of the blood or urin e or abnormalities in imaging tests). Performing Organization Address City/State/Zipcode Ph one Number [facility] CLIA: [id number], [address] [place] [address] [facility] * CBC WITH DIFFERENTIAL (10/14/2019 6:14 PM SHUTTLER) WBC 17.43 (H) 4.20 - 10.70 [facility] 10*3/L [facility] RBC 4.53 4.26 - 5.52 10*6/L [facility] LABO [facility] HGB 13.5 12.2 - 16.4 g/dL [facility] HCT 41.9 38.4 - 49.3 % [facility] MCV 92.5 81.7 - 95.6 fL [facility] MCH 29.8 26.1 - 32.7 pg [facility] MCHC 32.2 31.2 - 35.0 g/dL [facility] RDW-SD 46.5 38.5 - 51.6 fL [facility] RDW-CV 13.6 12.1 - 15.4 % [facility] PLT 155 150 - 328 10*3/L [facility] MPV 9.3 (L) 9.8 - 13.0 fL [facility] NRBC/100 WBC 0.0 0.0 - 10.0 /[address] [facility] NRBC x10^3 <0.01 10*3/L [facility] GRAN MAT (NEUT) 86.6 % [facility] LABORATOR Y % [facility] IMM GRAN % 0.90 % [facility] LYMPH % 4.5 % [facility] MONO % 7.8 % [facility] EOS % 0.0 % [facility] BASO % 0.2 % [facility] GRAN MAT 15.10 (H) 1.99 - 6.95 10*3/uL [facility] x10^3(ANC) [facility] IMM GRAN x10^3 0.15 (H) 0.00 - 0.06 10*3/uL [facility] LYMPH x10^3 0.79 (L) 1.09 - 3.23 10*3/uL [facility] ATORY [facility] MONO x10^3 1.36 (H) 0.36 - 1.02 10*3/uL [facility] AT[facility] EOS x10^3 <0.03 (L) 0.06 - 0.53 10*3/uL [facility] BASO x10^3 0.03 0.01 - 0.09 10*3/uL [facility] Specimen Blood - ARM, RIGHT Performing Organization Address [facility] Ph one Number [facility] CLIA: [id number], [address] [address] [facility] * N-TERMINAL PRO-BNP (10/14/2019 6:14 PM SHUTTLER) NT-proBNP 475 (H) <=450 pg/mL [facility] Specimen Blood - ARM, RIGHT Narrative Performed At Biotin has been reported to cause a neg ative bias, interpret results relative to [facility] patient's use of biotin. [facility] Performing Organization Address [facility] Ph one Number [facility] CLIA: [id number], [address] [address] 98 [facility] * Chest 2 Views (10/14/2019 4:53 PM SHUTTLER) Specimen Impressions Performed At Impression: PACS/VR/DOSE 1. No acute disease. Location Code: 7827 Narrative Performed At Clinical statement: weakness . PACS/VR/DOSE Study: Chest x-ray 2 views. Comparison: None. Ordering physician:Yessica Walsh Findings: Lung volumes are normal. There is no consolidation, effusion, edema or pneumothorax. The cardiac silhouette is enlarged. The mediastinal silhouette is unremarkable. The trach ea is midline. The osseous structures are notable for demineraliza tion, multilevel kyphoplasty and lumbar fusion. Procedure Note [facility], Radiant Results Inft User - 10/14/2019 5:21 PM SHUTTLER Clinical statement: weakness . Study: Chest x-ray 2 views. Comparison: None. Ordering physician:Yessica Walsh Findings: Lung volumes are normal. There is no consolidation, effusion, edema or pneumothorax. The cardiac silhouette is enlarged. The mediastinal silhouette is unremarkable. The trachea is midline. The osseous structures are notable for demineralization, multilevel kyphoplasty and lumbar fusion. IMPRESSION Impression: 1. No acute disease. Location Code: 7827 Performing Organization Address City/State/Zipcode Ph one Number PACS/VR/DOSE documented in this encounter Visit Diagnoses Diagnosis Weakness - Primary Other malaise and fatigue Leukocytosis, unspecified type Lumbar back pain Lumbago Acute cystitis without hematuria Acute cystitis Generalized weakness Other malaise and fatigue Myasthenia gravis Myasthenia gravis without exacerbation HTN (hypertension) Unspecified essential hypertension Leg weakness, bilateral Other musculoskeletal symptoms referabl e to limbs Lumbar stenosis Spinal stenosis, lumbar region, without neurogenic claudication documented in this encounter Administered Medications Action Date Dose Rate Site Medication Order MAR Action 10/21/2019 8:55 AM CDT 2.5 mg amLODIPine (NORVASC) tablet 2.5 mg Given 2.5 mg, Oral, DAILY, First dose on Mon10/15/19 at 0900, Until Discontinued, Routine 2.5 mg Given 10/20/2019 9:56 AM CDT 2.5 mg Given 10/19/2019 8:45 AM SHUTTLER 10/21/2019 8:55 AM CDT 5 mg finasteride (PROSCAR) tablet 5 mg Given 5 mg, Oral, DAILY, First dose on Mon10/15/19 at 0900, Until Discontinued, Routine 5 mg Given 10/20/2019 9:56 AM CDT 5 mg Given 10/19/2019 8:45 AM SHUTTLER 10/20/2019 8:46 PM CDT 300 mg gabapentin (NEURONTIN) capsule 300 mg Given 300 mg, Oral, QHS, First dose on Mon10/15/19 at 2100, Until Discontinued, Routine 300 mg Given 10/19/2019 9:17 PM SHUTTLER 300 mg Given 10/18/2019 8:35 PM SHUTTLER 10/21/2019 8:55 AM CDT 5,000 Units Abdomen- SC heparin (porcine) injection 5,000 Units Given 5,000 Units, Subcutaneous, Q12H, First dose on Mon10/15/19 at 0800, Until Discontinued, Routine 5,000 Units Abdomen-SC Given 10/20/2019 8:46 PM CDT 5,000 Units Abdomen-SC Given 10/20/2019 9:56 AM CDT hydralAZINE (APRESOLINE) injection 10 m g 10 mg, Intravenous, Q6HPRN, Starting Mo 10/14/19 at 2124, Until Discontinued, Routine, Hypertension, Keep SBP < 160 10/21/2019 8:55 AM CDT 50 mg losartan (COZAAR) tablet 50 mg Given 50 mg, Oral, DAILY, First dose on Mon10/15/19 at 0900, Until Discontinued, Routine 50 mg Given 10/20/2019 9:56 AM CDT 50 mg Given 10/19/2019 8:45 AM SHUTTLER 10/21/2019 8:56 AM CDT 500 mg meropenem (MERREM) 500 mg in NaCl 0.9% Given (NS) 100 mL MINI-BAG 500 mg, IV Piggyback, Administer over 6 0 Minutes, Q6H ABX, First dose on Mon10/18/19 at 1600, Until Discontinued, NEYMAR, Restricted use approved by: [facility], Reason for Anti-Infective: Documented Infection, Documented Infection Site: Urine, Duration of Therapy: 7 days 500 mg Given 10/21/2019 5:14 AM CDT 500 mg Given 10/20/2019 11:48 PM CDT 10/21/2019 8:55 AM CDT 40 mg pantoprazole (PROTONIX) EC tablet 40 mg Given 40 mg, Oral, DAILY, First dose on Mon10/15/19 at 0900, Until Discontinued, Routine 40 mg Given 10/20/2019 9:56 AM CDT 40 mg Given 10/19/2019 8:45 AM SHUTTLER 10/21/2019 8:55 AM CDT 10 mg predniSONE (DELTASONE) tablet 10 mg Given 10 mg, Oral, QAM WITH BREAKFAST, First dose on Mon10/15/19 at 0800, Until Discontinued, Routine 10 mg Given 10/20/2019 9:56 AM CDT 10 mg Given 10/19/2019 8:45 AM SHUTTLER 10/21/2019 8:55 AM CDT 0.4 mg tamsulosin (FLOMAX) capsule 0.4 mg Given 0.4 mg, Oral, BID, First dose on Mon10/15/19 at 0800, Until Discontinued 0.4 mg Given 10/20/2019 8:46 PM CDT 0.4 mg Given 10/20/2019 9:56 AM CDT Action Date Dose Rate Site Medication Order MAR Action 10/18/2019 2:16 PM SHUTTLER 1 tablet amoxicillin-clavulanate (AUGMENTIN) Given 875-125 mg per tablet 1 tablet 1 tablet, Oral, Q12H, First dose on Mon10/17/19 at 2000, Until Discontinued, Routine, Reason for Anti-Infective: Documented Infection, Documented Infection Site: Urine, Duration of Therapy: 7 days 1 tablet Given 10/17/2019 8:33 PM SHUTTLER 10/14/2019 4:39 PM SHUTTLER 500 mL 999 mL/hr NaCl 0.9% (NS) bolus infusion 500 mL New Bag at 999 mL/hr, 500 mL, IV Infusion, ONCE , 1 dose, Mon10/14/19 at 1630, NEYMAR 10/14/2019 5:41 PM SHUTTLER 500 mg penicillin v potassium (PEN-VEE K) Given tablet 500 mg 500 mg, Oral, ONCE, 1 dose, Mon10/14/19 at 1700, NEYMAR, Reason for Anti-Infective: Empiric Therapy for Suspected Infection, Empiric Therapy Site: Urine, Duration of therapy: 72 hours 10/15/2019 12:00 AM SHUTTLER 500 mg penicillin v potassium (PEN-VEE K) Given tablet 500 mg 500 mg, Oral, ONCE, 1 dose, Mon10/14/19 at 2230, NEYMAR, Reason for Anti-Infective: Empiric Therapy for Suspected Infection, Empiric Therapy Site: Urine, Duration of therapy: 72 hours 10/17/2019 1:48 PM SHUTTLER 500 mg penicillin v potassium (PEN-VEE K) Given tablet 500 mg 500 mg, Oral, Q8H, First dose on Mon10/15/19 at 0600, Until Discontinued, NEYMAR, Reason for Anti-Infective: Documented Infection, Documented Infection Site: Urine, Duration of Therapy: 14 days 500 mg Given 10/17/2019 5:25 AM SHUTTLER 500 mg Given 10/16/2019 9:44 PM SHUTTLER 10/17/2019 8:15 AM SHUTTLER 1 tablet sulfamethoxazole-trimethoprim (BACTRIM Given SS) 400-80 mg per tablet 1 tablet 1 tablet, Oral, DAILY, First dose on 10/15/19 at 0900, Until Discontinued, NEYMAR, Reason for Anti-Infective: Empiri c Therapy for Suspected Infection, Empiri c Therapy Site: Urine, Duration of therapy: 7 days 1 tablet Given 10/16/2019 8:44 AM SHUTTLER 1 tablet Given 10/15/2019 9:05 AM SHUTTLER documented in this encounter Additional Health Concerns Resolved Time Infection Noted Time Contact - ESBL 10/17/2019 4:39 PM SHUTTLER documented as of this encounter Insurance Type Payer Benefit Subscriber ID Effective Phone Address Plan / Dates Group Medicare Adv PPO [facility] [id number] 2019-P MEDICARE ADVANTAGE MEDICARE resent COMPLETE CHOICE documented as of this encounter
--- OUTSIDE RECORDS SUMMARY | 2020-03-12 23:42 | XMS REPORT | Summary of Care ---
Author Author [facility] - Health Organization [facility] Address Unknown Phone Unavailable Care Team Providers Care Pharmacy Data Analyst Name Role Phone Erik Rogel PCP Encounter Details Care Team Description Date Type Department Doctor Unassigned, [place] [address] [place] [address] 10/30/2019 Orders Only [facility] [address] [place] [address] Allergies Comments Active Allergy Reactions Severity Noted Date Oxycodone Hcl Hallucination 10/14/2019 s documented as of this encounter (statuses as of 10/30/2019) Medications End Date Status Medication Sig Dispensed [...] as of this encounter (statuses as of 10/30/2019) Active Problems Problem Noted Date Myasthenia gravis 10/15/2019 HTN (hypertension) 10/15/2019 Leg weakness, bilateral 10/15/2019 Lumbar stenosis 10/15/2019 Generalized weakness 10/14/2019 documented as of this encounter (statuses as of 10/30/2019) Social History Date Tobacco Use Types Packs/Day [...] Description Date Type Specialty Joni Mcallister MD [address] [place] [address]. 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 Health Maintenance Due Date Last Done Comments DTaP,Tdap,and Td Vaccines 12/28/1941 (1 - Tdap) Zoster Recombinant 12/28/1981 Vaccine (SHINGRIX) (1 of 2) Medicare Wellness Visit 12/28/1996 PNEUMOCOCCAL VACCINES 65+ 12/28/1996 (1 of 2 - PCV13) INFLUENZA VACCINE (#1) 2019 documented as of this encounter Procedures Comments Procedure Name Priority Date/Time Associated Diag nosis EXTERNAL PROVIDER RECORDS Routine 10/30/2019 12:01 AM CDT documented in this encounter Results Not on filedocumented in this encounter Additional Health Concerns Resolved Time Infection Noted Time Contact - ESBL 10/17/2019 4:39 PM NAPRAPATH documented as of this encounter Insurance Type Payer Benefit Subscriber ID Effective Phone Address Plan / Dates Group Medicare Adv PPO [facility] [id number] 2019-P MEDICARE ADVANTAGE MEDICARE resent COMPLETE CHOICE documented as of this encounter
--- OUTSIDE RECORDS SUMMARY | 2020-03-12 23:42 | XMS REPORT | Summary of Care ---
Author Author [facility] - Health Organization [facility] - Health Address Unknown Phone Unavailable Care Team Providers Care Sample Preparation Supervisor Name Role Phone Pebbles Erik PCP Reason for Referral * MRI/CAT Scan (Routine) Referred By Contact Referred To Contact Status Reason Specialty Diagnoses / Procedures Joni Mcallister MD [address] [place] [phone] New Request Diagnostic Diagnoses Radiology Chronic bilateral low back pain without sciatica P rocedures MR LUMBAR SPINE W WO CONTRAST Reason for Visit * Reason Comments Results Encounter Details Care Team Description Date Type Department Joni Mcallister MD [address] [place] [phone] Results 10/31/2019 Telephone [facility] [address] [phone] Allergies Comments Active Allergy Reactions [...] Description Date Type Specialty Joni Mcallister MD [address] [place] [phone] 11/04/2019 Office Visit Neurological Surger y [...] Time Contact - ESBL 10/17/2019 4:39 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
--- OUTSIDE RECORDS SUMMARY | 2020-03-12 23:47 | XMS REPORT | Continuity of Care Document ---
Author Author [facility] t Organization [facility] Address [address] [place] [address] Phone Unavailable Care Team Providers Care Mainframe Consultant Name Role Phone Carmen ROGEL PCP MARCIANO HOWE Attphychalo Unavailable Joni Mcallister MD Attphys MARCIANO HOWE Admamari Unavailable Payers Payer Name Policy Type Policy Number Effective Date Expiration Date [facility] [id number] 2019 00:00:00 [facility] Cdc Review [id number] [facility] Problems Condition Name Condition Details Condition Category Status Onset Date Resolution Date Last Treatment Date Treating Clinician Comments Source Urinary tract infection Problem Active [facility] Altered mental status Problem Active [facility] Allergies, Adverse Reactions, Alerts Allergy Name Allergy Type Status Severity Reaction(s) Onset Date Inacti ve Date Treating Clinician Comments Source Oxycodone Propensity to adverse reactions Active Moderate CONF USION 2020-02-04 00:00:00 [facility] oxycodone DA Active [place] 2019-12-16 00:00:00 [facility] oxycodone DA Active [place] 2017-01-15 00:00:00 [facility] Social History Social Habit Start Date Stop Date Quantity Comments Source Sex Assigned At 1930 00:00:00 1930 00:00:00 Male [facility] Medications Ordered Medication Name Filled Medication Name Start Date Stop Da te Current Medication? Ordering Clinician Indication Dosage Frequency Signature (SIG) Comments Components Source Amlodipine Besylate Amlodipine Besylate Yes 2.5 Daily [facility] Calcium Carbonate Calcium Carbonate Yes 500 Twic e A Day [facility] Finasteride (Proscar) 5 Mg TABLET Finasteride (Proscar) 5 Mg TABLET Yes 20 Daily [facility] Finasteride (Proscar) 5 Mg TABLET Finasteride (Proscar) 5 Mg TABLET Yes 5 Daily [facility] Furosemide (Lasix) 20 Mg TABLET Furosemide (Lasix) 20 Mg TABLET Yes 20 Daily [facility] Furosemide Furosemide Yes 20 Daily [facility] Gabapentin Gabapentin Yes 300 Bedtime [facility] Losartan Potassium Losartan Potassium Yes 50 Da katt [facility] Mirabegron (Myrbetriq) 50 Mg TAB.ER.24H Mirabegron (Myrbetri q) 50 Mg TAB.ER.24H Yes Daily [facility] Prednisone Prednisone Yes 10 Daily [facility] Tamsulosin Hcl (Flomax*) 0.4 Mg CAP Tamsulosin Hcl (Flomax*) 0.4 Mg C AP Yes .4 Daily [facility] Vital Signs Vital Name Observation Time Observation Value Comments Source Body Temperature 2020-02-13 16:18:00 97.9 [degF] [facility] Weight 2020-02-13 00:40:00 208 [lb_av] [facility] BMI (Body Mass Index) 2020-02-13 00:40:00 31.6 kg/m2 [facility] Procedures Procedure Date / Time Performed Performing Clinician [facility] Computed tomography of abdomen and pelvis with contrast 00:00:00 [facility] Computed tomography of brain without radiopaque contrast 2020-01 00:00:00 [facility] Encounters Start Date/Time End Date/Time Encounter Type Admission Type Attendi [facility] Care Department Encounter ID Source 2020-02-04 16:30:00 2020-02-04 16:30:00 Admitted Inpatient 1 MARCIANO PIERRE [facility] [id number] [facility] 2019-10-31 00:00:00 2019-10-31 00:00:00 Telephone Duran Mcallister [facility] [facility] [id number] Results Test Description Test Time Test Comments Results Result Comments Source Blood leukocytes automated count (number/volume) 2020-02-13 05:20:00 Test Item White Blood Count (test code = 6690-2) 7.93 4.8-10.8 [facility] erythrocytes automated count (number/volume)2020-02-13 05:20:00* Test Item Value Reference Range Interpretation Comments Red Blood Count (test code = 789-8) 4.28 4.3-5.7 [facility] Lake[facility] hemoglobin measurement (moles/volume)2020-02-13 05:20:00* Test Item Value Reference Range Interpretation Comments Hemoglobin (test code = 90415-5) 12.4 14.0-18.0 [facility] Lake[facility]ated blood hematocrit (volume fraction)2020-02-13 05:20:00* Test Item Value Reference Range Interpretation Comments Hematocrit (test code = 4544-3) 39.7 38.2-49.6 [facility] LakeAutomated erythrocyte mean corpuscular xcoavu0327-64-62 05:20:00* Test Item Value Reference Range Interpretation Comments Mean Corpuscular Volume (test code = 787-2) 92.8 81-99 [facility] LakeAutomated erythrocyte mean corpuscular hemoglobin (mass per erythrocyte)2020-02-13 05:20:00* Test Item Value Reference Range Interpretation Comments Mean Corpuscular Hemoglobin (test code = 785-6) 29.0 28-32 [facility] LakeAutomated erythrocyte mean corpuscular hemoglobin concentration measurement (mass/volume)2020-02-13 05:20:00* Test Item Value Reference Range Interpretation Comments Mean Corpuscular Hemoglobin Concent (test code = 786-4) 31.2 31-35 [facility] LakeRDW ShdKu-Wez1989-83-02 05:20:00* Test Item Value Reference Range Interpretation Comments Red Cell Distribution Width (test code = 08853-6) 13.6 11.7 -14.4 [facility] LakeAutomated blood platelet count (count/volume)2020-02-13 05:20:00* Test Item Value Reference Range Interpretation Comments Platelet Count (test code = 777-3) 146 140-360 [facility] LakeAutomated blood segmented neutrophil count as percentage of total fzhphxlgxq0255-78-69 05:20:00* Test Item Value Reference Range Interpretation Comments Neutrophils (%) (Auto) (test code = 40378-3) 63.0 38.7-80.0 [facility] LakeAutomated blood lymphocyte count as percentage ot total fontiwqdps0460-69-68 05:20:00* Test Item Value Reference Range Interpretation Comments Lymphocytes (%) (Auto) (test code = 736-9) 22.6 18.0-39.1 [facility] LakeAutomated blood monocyte count as percentage of total bzvyvnufzl7652-97-87 05:20:00* Test Item Value Reference Range Interpretation Comments Monocytes (%) (Auto) (test code = 5905-5) 11.2 4.4-11.3 [facility] LakeAutomated blood eosinophil count as percentage of total ebuixrywxo1836-14-64 05:20:00* Test Item Value Reference Range Interpretation Comments Eosinophils (%) (Auto) (test code = 713-8) 2.1 0.0-6.0 [facility] LakeAutomated blood basophil count as percentage of total yrilmftbsk2051-87-36 05:20:00* Test Item Value Reference Range Interpretation Comments Basophils (%) (Auto) (test code = 706-2) 0.5 0.0-1.0 [facility] LakeFluoroscopic procedure less than one hour ugdpxzey5782-81-57 05:20:00* Test Item Value Reference Range Interpretation Comments IM GRANULOCYTES % (test code = IM GRANULOCYTES %) 0.6 0.0- 1.0 [facility] LakeAutomated blood neutrophil count 2020-02-13 05:20:00* Test Item Value Reference Range Interpretation Comments Neutrophils # (Auto) (test code = 751-8) 5.0 2.1-6.9 [facility] LakeBlood lymphocytes count (number/volume) 2020-02-13 05:20:00* Test Item Value Reference Range Interpretation Comments Lymphocytes # (Auto) (test code = 01539-3) 1.8 1.0-3.2 [facility] monocytes automated count (number/volume)2020-02-13 05:20:00* Test Item Value Reference Range Interpretation Comments Monocytes # (Auto) (test code = 742-7) 0.9 0.2-0.8 [facility] LakeAutomated blood eosinophil count 2020-02-13 05:20:00* Test Item Value Reference Range Interpretation Comments Eosinophils # (Auto) (test code = 711-2) 0.2 0.0-0.4 [facility] LakeAutomated blood basophil count (count/volume)2020-02-13 05:20:00* Test Item Value Reference Range Interpretation Comments Basophils # (Auto) (test code = 704-7) 0.0 0.0-0.1 [facility] LakeFluoroscopic procedure less than one hour kdovzgzr0765-69-88 05:20:00* Test Item Value Reference Range Interpretation Comments Absolute Immature Granulocyte (auto (jaylon t code = Absolute Immature Granulocyte (auto) 0.05 0-0.1 [facility] or plasma sodium measurement (moles/volume)2020-02-13 05:20:00* Test Item Value Reference Range Interpretation Comments Sodium Level (test code = 2951-2) 141 136-145 [facility] Hospitalerum or plasma potassium measurement (moles/volume)2020-02-13 05:20:00* Test Item Value Reference Range Interpretation Comments Potassium Level (test code = 2823-3) 4.8 3.5-5.1 [facility] Hospitalerum or plasma chloride measurement (moles/volume)2020-02-13 05:20:00* Test Item Value Reference Range Interpretation Comments Chloride Level (test code = 2075-0) 109 98-107 [facility] Hospitalerum or plasma carbon dioxide, total measurement (moles/volume)2020-02-13 05:20:00* Test Item Value Reference Range Interpretation Comments Carbon Dioxide Level (test code = 2028-9) 26 22-29 [facility] Hospitalerum or plasma anion vof1332-26-21 05:20:00* Test Item Value Reference Range Interpretation Comments Anion Gap (test code = 81150-8) 10.8 8-16 [facility]erum or plasma urea nitrogen measurement (mass/volume)2020-02-13 05:20:00* Test Item Value Reference Range Interpretation Comments Blood Urea Nitrogen (test code = 3094-0) 17 7-26 [facility] Hospitalerum or plasma creatinine measurement (mass/volume)2020-02-13 05:20:00* Test Item Value Reference Range Interpretation Comments Creatinine (test code = 2160-0) 0.93 0.72-1.25 [facility] Hospitalerum or plasma urea nitrogen/creatinine mass efhdg1328-06-17 05:20:00* Test Item Value Reference Range Interpretation Comments BUN/Creatinine Ratio (test code = 3097-3) 18 6-25 [facility] LakeEstimated glomerular filtration rate (GFR) tkevwzorodrap4857-67-16 05:20:00* Test Item Value Reference Range Interpretation Comments Estimat Glomerular Filtration Rate (test code = 253903851) > 60 >60 Ranges were taken from the National Kidney Disease Education Program and the [facility] Foundation literature.Reference ranges:60 or greater: Vheuri69-41 ( for 3 consecutive months): Chronic kidney disease 15 or less: Kidney failureHCA [facility] Healthcare Clear LakeGlucose xuatmlyrcvx8005-16-41 05:20:00* Test Item Value Reference Range Interpretation Comments Glucose Level (test code = QBY7295) 83 74-118 [facility] Hospitalerum or plasma calcium measurement (mass/volume)2020-02-13 05:20:00* Test Item Value Reference Range Interpretation Comments Calcium Level (test code = 31912-5) 10.2 8.4-10.2 [facility] LakeCapillary blood glucose measurement by glucometer (mass/volume)2020-02-11 19:14:00* Test Item Value Reference Range Interpretation Comments Bedside Glucose (test code = 93641-2) 182 70-120 Meter ID: [id number] [facility]osph[facility] uibsjovcklz3501-87-36 05:00:00* Test Item Value Reference Range Interpretation Comments Phosphorus Level (test code = SXQ9044) 2.0 2.3-4.7 [facility] Hospitalerum or plasma magnesium measurement (mass/volume)2020-02-09 05:00:00* Test Item Value Reference Range Interpretation Comments Magnesium Level (test code = 57424-5) 1.9 1.3-2.1 [facility] Hospitalerum or plasma thyrotropin measurement by detection limit <= 0.005 miu/l (units/volume)2020-02-08 06:01:00* Test Item Value Reference Range Interpretation Comments Thyroid Stimulating Hormone (TSH) (test code = 81535-3) 2.416 0.350-4.940 [facility] LakeBacterial urine gfyhvze2122-20-85 15:50:00* Test Item Value Reference Range Interpretation Comments Urine Culture (test code = 630-4) PSEUDOMONAS AERUGINOSA [facility] LakeLUMBAR 3 YYWP5343-57-28 11:55:00 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 Signed by: Ruddy Mejia MD on 02/06/2020 12:0 1 PM Dictated By: RUDDY MEJIA MD 00 Transcribed By: BENNIE on 02/06/201200 COPY TO: MARCIANO HOWE MD CT ABDOMEN/PELVIS F4670-35-90 12:58:[address] [place] [address] Patient Name: DALE DSOUZA MR #: [id number] : 1930 Age/Sex: 89/M Req #: [id number] Adm Physician: MARCIANO HOWE MD Ordered by: MARCIANO HOWE MD Report #: [id number] Location: MED/SURG2 Room/Bed: 205 Procedure: [id number] CT/CT ABDOMEN/P BOZENA W Exam Date: 02/05/20 [...] Kinase (test code = 2157-6) 21 30-200 [facility]erum or plasma creatine kinase MB measurement (mass/volume)2020-02-05 12:56:00* Test Item Value Reference Range Interpretation Comments Creatine Kinase MB (test code = 17499-6) 1.90 0-5.0 [facility] LakeTroponin I measurement by highly sensitive enzyme wwwahtgkwpm1437-10-81 12:56:00* Test Item Value Reference Range Interpretation Comments Troponin I (test code = 60777-6) 0.002 0-0.300 [facility] Hospitalerum or plasma total bilirubin measurement (mass/volume)2020-02-05 04:55:00* Test Item Value Reference Range Interpretation Comments Total Bilirubin (test code = 1975-2) 0.5 0.2-1.2 [facility] LakeFluoroscopic procedure less than one hour gzvyxvgq5207-94-13 04:55:00* Test Item Value Reference Range Interpretation Comments Aspartate Amino Transf (AST/SGOT) (test code = Aspartate Amino Transf (AST/SGOT)) 13 5-34 [facility] Hospitalerum or plasma alanine aminotransferase measurement (enzymatic activity/volume)2020-02-05 04:55:00* Test Item Value Reference Range Interpretation Comments Alanine Aminotransferase (ALT/SGPT) (test code = 1742-6) 11 0-55 [facility] Hospitalerum or plasma protein measurement (mass/volume)2020-02-05 04:55:00* Test Item Value Reference Range Interpretation Comments Total Protein (test code = 2885-2) 5.1 6.5-8.1 [facility] Hospitalerum or plasma albumin measurement (mass/volume)2020-02-05 04:55:00* Test Item Value Reference Range Interpretation Comments Albumin (test code = 1751-7) 2.6 3.5-5.0 [facility] LakePlasma globulin measurement (mass/volume) 2020-02-05 04:55:00* Test Item Value Reference Range Interpretation Comments Globulin (test code = 70903-4) 2.5 2.3-3.5 [facility] Hospitalerum or plasma albumin/globulin mass zorhv9332-95-51 04:55:00* Test Item Value Reference Range Interpretation Comments Albumin/Globulin Ratio (test code = 1759-0) 1.0 0.8-2.0 [facility] Hospitalerum or plasma alkaline phosphatase measurement (enzymatic activity/volume)2020-02-05 04:55:00* Test Item Value Reference Range Interpretation Comments Alkaline Phosphatase (test code = 6768-6) 44 40-150 [facility] LakeCT BRAIN FC2059-39-67 17:05:00 [facility] [address] [place] [address] Patient Name: DALE DSOUZA MR #: [id number] : 1930 Age/Sex: 89/M Req #: [id number] Adm Physician: Ordered by: GENIE SKAGGS MD Report #: [id number] Location: ER Room/Bed: Procedure: [id number] CT/CT BRAIN WO Exam Date: 02/04/20 Exam [...] 02/04/2020 5:0 6 PM Dictated By: ISAC WASIHNGTON MD, MD 05 Transcribed By: BENNIE on 02/04/201705 COPY TO: GENIE SKAGGS MD CHEST SINGLE (PORTABLE)2020-02-04 17:01:00 [place] [address] Patient Name: DALE DSOUZA MR #: [id number] : 1930 Age/Sex: 89/M Req #: [id number] Adm Physician: Ordered by: GENIE SKAGGS MD Report #: [id number] Location: ER Room/Bed: Procedure: [id number] DX/CHEST SIN GLE (PORTABLE) Exam Date: 02/04/20 [...] By: WINNIE RAN on 02/04/201701 COPY TO: GENIE SKAGGS MD Fluoroscopic procedure less than one hour oweachrh5100-41-48 16:45:00* Test Item Value Reference Range Interpretation [...] complexity tests.Testing performed by [facility] [address] [place], [place] [id number] Director: James Pritchard M.D.CLIA # [id number] [facility] Prothrombin time (PT) in platelet poor plasma by coagulation wvuwd3664-22-23 16:15:00* Test Item Value Reference Range Interpretation Comments Prothrombin Time (test code = 5902-2) 12.7 11.9-14.5 [facility] LakeINR in Platelet poor plasma by Coagulation ypfej8059-06-74 16:15:00* Test Item Value Reference Range Interpretation Comments Prothromb Time International Ratio (test code = 6301-6) 0.90 Oral Anticoagulant Therapy INR Values:1. Low Intensity Therapy 1.5 - 2.02 . Moderate Intensity Therapy 2.0 - 3.03. High Intensity Therapy(1) 2.5 - 3. 54. High Intensity Therapy(2) 3.0 - 4.05. Panic Value INR > 5.0 [facility] LakeActivated partial thromboplastin time (aPTT) in platelet poor plasma by coagulation lzqrd6374-20-91 16:15:00* Test Item Value Reference Range Interpretation Comments Activated Partial Thromboplast Time (test code = 27361-5) 22.8 23.8-35.5 NO CLOT DETECTED [facility] LakeUrine color fznkpvjvdhwjz4947-94-84 16:15:00* Test Item Value Reference Range Interpretation Comments Urine Color (test code = 5778-6) YELLOW YELLOW [facility] LakeUrine izmtmfz6688-17-25 16:15:00* Test Item Value Reference Range Interpretation Comments Urine Clarity (test code = 79193-6) SL CLOUDY CLEAR [facility] Hospitalpecific gravity of Urine by Test strip 2020-02-04 16:15:00* Test Item Value Reference Range Interpretation Comments Urine Specific [place] (test code = 5811-5) 1.025 1.010-1.02 5 [facility] LakeUrine pH measurement by automated test gwrdo1223-55-84 16:15:00* Test Item Value Reference Range Interpretation Comments Urine pH (test code = 24181-1) 7 5-7 [facility] LakeUrine leukocyte esterase detection by ngdyxtnv6014-70-54 16:15:00* Test Item Value Reference Range Interpretation Comments Urine Leukocyte Esterase (test code = 5799-2) LARGE NEGATIVE [facility] LakeUrine nitrite bwzmmcizo5435-70-68 16:15:00* Test Item Value Reference Range Interpretation Comments Urine Nitrite (test code = 06483-7) POSITIVE NEGATIVE [facility] LakeUrine protein measurement by test strip (mass/volume)2020-02-04 16:15:00* Test Item Value Reference Range Interpretation Comments Urine Protein (test code = 5804-0) TRACE NEGATIVE [facility] LakeUrine glucose xoeluuqff1235-01-17 16:15:00* Test Item Value Reference Range Interpretation Comments Urine Glucose (UA) (test code = 2349-9) NEGATIVE NEGATIVE [facility] LakeUrine ketones detection by automated test jmhdp4872-00-20 16:15:00* Test Item Value Reference Range Interpretation Comments Urine Ketones (test code = 29608-8) NEGATIVE NEGATIVE [facility] LakeUrine urobilinogen measurement by test strip (mass/volume)2020-02-04 16:15:00* Test Item Value Reference Range Interpretation Comments Urine Urobilinogen (test code = 32084-7) 0.2 0.2-1 [facility] LakeUrine total bilirubin measurement (mass/volume)2020-02-04 16:15:00* Test Item Value Reference Range Interpretation Comments Urine Bilirubin (test code = 1978-6) NEGATIVE NEGATIVE [facility] LakeUrine erythrocytes kzctjybba8901-52-06 16:15:00* Test Item Value Reference Range Interpretation Comments Urine Blood (test code = 46666-4) MODERATE NEGATIVE [facility] LakeAutomated urine sediment leukocyte count by microscopy (number/high power field)2020-02-04 16:15:00* Test Item Value Reference Range Interpretation Comments Urine WBC (test code = 5821-4) >50 0-5 [facility] LakeErythrocytes detection in urine sediment by light faiusygqyz3782-53-25 16:15:00* Test Item Value Reference Range Interpretation Comments Urine RBC (test code = 70012-3) 21-50 0-5 [facility] LakeBacteria detection in urine sediment by light nxbfjsjeaq4972-34-62 16:15:00* Test Item Value Reference Range Interpretation Comments Urine Bacteria (test code = 55531-3) MANY NONE [facility] LakeEpithelial cells detection in urine sediment by light zhnitjufcf4183-46-34 16:15:00* Test Item Value Reference Range Interpretation Comments Urine Epithelial Cells (test code = 81305-7) FEW NONE [facility] LakeBlood kehjhmd4268-39-01 16:15:00* Test Item Value Reference Range Interpretation Comments Blood Culture (test code = 56187431) NO GROWTH AFTER 5 DAYS, FINAL REPORT [facility] LakeTOTAL T3 - OMZT5849-53-41 12:07:00* Test Item Value Reference Range Interpretation Comments TOTAL T3 - ICMA (test code = T3) 93 ng/dL 71-180 Performed At: [facility] [address] [id number] Kyle L MD Ph:[phone] T4 IQYJ5900-79-61 18:20:00* Test Item Value Reference Range Interpretation Comments T4 FREE (test code = T4F) 1.2 ng/dL 0.77-1.61 N CBC W/AUTO [id number] 08:10:00* Test Item Value Reference Range Interpretation [...] (test code = MDIFF) NO BASIC METABOLIC [id number] 08:02:00* Test Item Value Reference Range Interpretation [...] code = CA) 9.5 mg/dL 8.0-10.5 N DRQIOJAJYBK5704-45-12 08:02:00* Test Item Value Reference Range Interpretation [...] concentrations <2 ng/mL are obtained. BASIC METABOLIC ISFDQ0068-94-20 08:59:00* Test Item Value Reference Range Interpretation [...] CA) 8.5 mg/dL 8.0-10.5 N CBC W/AUTO IFZR2928-85-55 08:53:00* Test Item Value Reference Range Interpretation [...] <2 ng/mL are obtained. Novel Coronavirus 2019 Ocmohpl8336-99-34 07:49:00* Test Item Value Reference Range Interpretation Comments Novel Coronavirus 2019 Inhouse (test code = COVNONPUI) Negative Negative XDXKTKLYLOL1825-22-63 05:42:00* Test Item Value Reference Range Interpretation Comments PHOSPHOROUS (test code = PHOS) 1.7 MG/DL 2.5-4.9 L PEKBSXAKG8071-36-08 05:42:00* Test Item Value Reference Range Interpretation [...] if any concentrations <2 ng/mL are obtained. XHTDLZVFZ1920-32-20 17:56:00* Test Item Value Reference Range Interpretation Comments MAGNESIUM (test code = MAG) 1.20 mg/dL 1.8-2.4 L TSH REFLEX TO [id number] 17:56:00* Test Item Value Reference Range Interpretation Comments TSH REFLEX TO FT4 (test code = TSHREFLEX) 0.30 IU/mL 0.42-5.47 L LACTIC [id number] 17:50:00* Test Item Value Reference Range Interpretation Comments LACTIC ACID (test code = LACT) 1.3 mmol/L 0.4-1.9 N HGBA1C%2019-12-16 17:48:00* Test Item Value Reference Range Interpretation Comments HGBA1C% (test code = HGBA1C%) 6.7 %A1C 4.8-6.0 H LACTIC MQYW0580-95-91 12:20:00* Test Item Value Reference Range Interpretation Comments LACTIC ACID (test code = LACT) 2.0 mmol/L 0.4-1.9 H BASIC METABOLIC [id number] 12:20:00* Test Item Value Reference Range Interpretation [...] CA) 10.2 mg/dL 8.0-10.5 N HEPATIC FUNCTION [id number] 12:20:00* Test Item Value Reference Range Interpretation [...] code = ALKP) 52 IUnit/L 20-125 N [id number] 12:20:00* Test Item Value Reference Range Interpretation [...] by method. UA RFLX MICR CULT IF [id number] 12:06:00* Test Item Value Reference Range Interpretation [...] Sepsis-no other srcSpecimen Description: CLEAN CATCHCBC W/AUTO [id number] 12:00:00* Test Item Value Reference Range Interpretation [...] = MDIFF) NO - XR CHEST 1 [id number] 11:09:00 FAX: Erik Cardenas MD [phone] [place]: St: PRE Name: [place] AGUAYODALE [facility] : [birth year] Age/S: 88/M [address] [place] [address] Unit #: [id number] Loc: [place] [address] Phys: Jean-Pierre Johnson MD Acct: [id number] Dis Date: Status: PRE ER PHONE #: [phone] Exam Date: 12/16/2019 105 FAX #: [phone] Reason: fever, cough EXAMS: CPT CODE: [id number] XR CHEST 1 V [id number] EXAM: Single view AP chest. EXAM DATE: [...] By: Ashley Orig Print D/T: S: 12/16/2019 (8039) PAGE 1 Signed Report
--- NOTE | 2020-03-16 03:26 | Operative Report ---
DATE OF PROCEDURE: 02/12/2020 SURGEON: Dominick Delaney MD PREOPERATIVE DIAGNOSES: 1. Obstructive benign prostatic hyperplasia. 2. Microhematuria. 3. Urinary tract infection. POSTOPERATIVE DIAGNOSES: 1. Obstructive benign prostatic hyperplasia. 2. Microhematuria. 3. Urinary tract infection. OPERATIONS PERFORMED: Note, these were all staged procedures as part of multi-staged and multi-step process in managing the patient's obstructive BPH. OPERATIVE PROCEDURE IN DETAIL: Informed consent was verified. Matt Cisneros was properly identified, taken to the operating room, placed on the cystoscopy table in supine position. Anesthesia was uneventfully begun. The patient was then carefully and gently repositioned in dorsal lithotomy position. All pressure points well padded. His genitalia were prepared and draped in usual sterile fashion. The cystoscope sheath with the visual obturator in place was atraumatically inserted. The patient's urethra was guided down the unremarkable urethra through the normal sphincteric region through the prostate bed, which was significant for visually obstructing BPH, caving in BPH tissue, this was a very large prostate. We went to the patient's bladder where panendoscopy revealed severe trabeculations with diverticular formation throughout. No suspicious lesions were identified. An 8-Turkish catheter was used to cannulate each ureter and retrograde ureteropyelograms were performed. Interpretation of retrograde ureteropyelography contrast was instilled in retrograde fashion bilaterally. There were no tumors. There were no stones. There were no diverticula of the upper tract. Unobstructed drainage was observed bilaterally fluoroscopically. J-hooking was noted bilaterally. There was a rather significant amount of back hardware noted, which may very well cause nerve damage in voiding dysfunction. The cystoscope was withdrawn. The resectoscope was atraumatically placed. We then utilized the plasma button electrode to vaporize the prostate from the bladder neck to maneuver past the verumontanum and down the surgical capsule. There was a rather significant amount of prostate tissue remaining despite the prior procedures. Once we accomplished a wide open prostatic bed, we utilized pinpoint electrocautery to achieve excellent hemostasis. The resectoscope was withdrawn. The Garza catheter was placed. It was placed in continuous bladder irrigation. Following placement of belladonna and opium suppository, the place was uneventfully reversed from anesthesia and taken to recovery room in stable condition. There were no complications to the procedure. He tolerated the procedure well. We will proceed with routine postoperative care and ongoing urological followup. MD ARISTIDES Jurado/KIT /[id number]
== END 2020-02-13 18:15 | DRG 665 ==
LOC: ER 14:19 → ERHOLD 16:30 → MED/SURG2 17:24
PROVIDERS: ADMIT Internal Medicine; ATTEND Internal Medicine
PROC: BT141ZZ Fluoroscopy of Kidneys, Ureters and Bladder using Low Osmolar Contrast (ICD-10-PCS; 2020-02-12)
PROC: 0V508ZZ Destruction of Prostate, Via Natural or Artificial Opening Endoscopic (ICD-10-PCS; principal; 2020-02-12 13:00)
DX: T83.511A Infection and inflammatory reaction due to indwelling urethral catheter, initial encounter (principal); G92 Toxic encephalopathy; N41.0 Acute prostatitis; N13.8 Other obstructive and reflux uropathy; N40.1 Benign prostatic hyperplasia with lower urinary tract symptoms; B96.20 Unspecified Escherichia coli [E. coli] as the cause of diseases classified elsewhere; R41.82 Altered mental status, unspecified; Z88.5 Allergy status to narcotic agent; I10 Essential (primary) hypertension; G62.9 Polyneuropathy, unspecified; Z96.651 Presence of right artificial knee joint; E83.52 Hypercalcemia; E86.0 Dehydration; I45.10 Unspecified right bundle-branch block; I44.0 Atrioventricular block, first degree; G47.30 Sleep apnea, unspecified; D64.9 Anemia, unspecified; Z91.81 History of falling; M16.12 Unilateral primary osteoarthritis, left hip; R53.81 Other malaise; B96.5 Pseudomonas (aeruginosa) (mallei) (pseudomallei) as the cause of diseases classified elsewhere; S22.089D Unspecified fracture of T11-T12 vertebra, subsequent encounter for fracture with routine healing; Z11.59 Encounter for screening for other viral diseases
CPT/HCPCS: 36415; 70450; 71045; 72100; 73522; 74177; 74420; 80048; 80053; 81001; 82550; 82553; 82948; 83735; 84100; 84443; 84484; 85025; 85610; 85730; 87040; 87086; 87186; 93005; 93306; 93880; 97139; 99251; 99284; C1758; J0692; J2001; J2405; J2543; J3475; J7030; J7050; J7512; Q9967; U0002

== ENCOUNTER → 2021-10-15 | Outpatient (CLI) | payer MEDICARE ==
[~2021-10-15] MED LIST: AMLODIPINE BESYL5 MG PO; CALCIUM CARBON500 MG PO; FLOMAX0.4 MG PO; FUROSEMIDE40 MG PO; GABAPENTIN300 MG PO; LASIX20 MG PO; LOSARTAN POTASS25 MG PO; MYRBETRIQ50 MG PO; PREDNISONE10 MG PO; PROSCAR5 MG PO
== END ==
LOC: CT 11:27
PROVIDERS: ATTEND Urology
DX: N20.0 Calculus of kidney (principal)
CPT/HCPCS: 74176

== ENCOUNTER → 2021-11-17 | Day surgery (SDC) | payer MEDICARE ==
[2021-11-15 14:46] LABS: BASOPHILS % 0.5 % (0.0-1.0); EOSINOPHILS # (AUTO) 0.2 (0.0-0.4); EOSINOPHILS % 1.9 % (0.0-6.0); HEMATOCRIT 43.7 % (38.2-49.6); HEMOGLOBIN 13.5 g/dL (14.0-18.0); LYMPHOCYTES # (AUTO) 1.3 (1.0-3.2); LYMPHOCYTES % 15.2 % (18.0-39.1); MEAN CORPUSCULAR HEMOGLOBIN 29.1 pg (28-32); MEAN CORPUSCULAR HGB CONC 30.9 g/dL (31-35); MEAN CORPUSCULAR VOLUME 94.2 fL (81-99); MONOCYTES # (AUTO) 0.8 (0.2-0.8); NEUTROPHILS # (AUTO) 6.2 (2.1-6.9); PLATELET COUNT 151 x10e3/uL (140-360); RED BLOOD COUNT 4.64 x10e6/uL (4.3-5.7); RED CELL DISTRIBUTION WIDTH 14.7 % (11.7-14.4)
[2021-11-15 15:06] LABS: ANION GAP 12.3 mmol/L (8-16); CALCIUM 11.1 mg/dL (8.4-10.2); CREATININE, SERUM 1.15 mg/dL (0.72-1.25); POTASSIUM 4.3 mmol/L (3.5-5.1)
[~2021-11-17] MED LIST changes: +B&O 60MG R/S 60 MG SUPP PR ONE; +BACTRIM 400-801 EACH PO; +CEFTRIAXONE 1 GM VIAL ONE; +DEXAMETHASONE SOD PHOS INJ 4 MG/ML SDV ONE; +ELIQUIS5 MG PO; +EPHEDRINE SULFATE INJ 50 MG/ML VIAL ONE; +FENTANYL CITRATE/PF 100MCG/2 ML INJ ONE; +GENTAMICIN 80MG/NS 100 ML 200 ML IV ONE; +IOPAMIDOL 300MG/ML 50ML INFUS..BTL IV ONE; +LIDOCAINE HCL 2% LOCAL INJ 5 ML SDV VIAL INJ ONE; +MESTINON60 MG PO; +METOPROLOL SUCC25 MG PO; +MULTI-VITAMIN1 EACH PO; +ONDANSETRON HCL INJ 2MG/ML 2ML 2 MG/ML VIAL ONE; +POVIDONE IODINE 0.05% 0.05 % ML PO ONE; +PROPOFOL IV EMULSION 10 MG/ML 20 ML VIAL ONE; +PROTONIX20 MG PO; +SEVOFLURANE INHAL SOLN 250 ML PEN BTL ONE; +VENOFER100 MG/5 M PO
[2021-11-17 09:10] VITALS: BP 152/87
== END | disposition home or self-care (01) ==
LOC: OR 05:47
PROVIDERS: ATTEND Urology
DX: N20.0 Calculus of kidney (principal); N13.30 Unspecified hydronephrosis; N39.0 Urinary tract infection, site not specified; N47.2 Paraphimosis; Z98.890 Other specified postprocedural states; N32.3 Diverticulum of bladder; G70.00 Myasthenia gravis without (acute) exacerbation; M19.90 Unspecified osteoarthritis, unspecified site; M54.9 Dorsalgia, unspecified; H91.90 Unspecified hearing loss, unspecified ear; G47.33 Obstructive sleep apnea (adult) (pediatric); I10 Essential (primary) hypertension; I48.91 Unspecified atrial fibrillation; E78.5 Hyperlipidemia, unspecified; K21.9 Gastro-esophageal reflux disease without esophagitis; R13.10 Dysphagia, unspecified; Z88.6 Allergy status to analgesic agent; Z01.812 Encounter for preprocedural laboratory examination; Z01.818 Encounter for other preprocedural examination; Z20.822 Contact with and (suspected) exposure to COVID-19; Z79.02 Long term (current) use of antithrombotics/antiplatelets; Z79.899 Other long term (current) drug therapy; Z95.0 Presence of cardiac pacemaker; Z86.718 Personal history of other venous thrombosis and embolism
CPT/HCPCS: 36415; 50590; 52332; 71046; 74018; 80048; 84550; 85025; 87086; 93005; C1758; C2617; J0696; J1100; J1580; J2001; J2405; J2704; J3010; Q9967; U0002